=== PATIENT | female | born 1990 | race Caucasian/White ===

== ENCOUNTER 2017-01-20 16:12 | Emergency (ER) | payer SELFPAY ==
[~2017-01-20] VITALS: Ht 165.1 cm; Wt 107.5 kg
[~2017-01-20 16:12] MED LIST: NO ROUTINE MEDS; PRED20TA PO
--- OUTSIDE RECORDS SUMMARY | 2017-01-20 16:17 | XMS REPORT | Continuity of Care Document ---
Author Author [facility] Organization [facility] Address Unknown Phone Unavailable Support Name Relationship Address Phone PEACE CARTER MD Caregiver [address] [place] [address] [place] [address] Unavailable YNES PINEDA Next Of Kin [address] [place] [phone] Insurance Providers Guarantor Yunior Hairston Address [address] [place] [address] Email [email or web address] Payer Self Pay Subscriber's Name Yunior Hairston Relationship 18 Self Advance Directives Directive Response Recorded Date/Time Advanced Directives Type None 09/23/16 10:24am Chief Complaint and Reason for Visit Chief Complaint Throat Pain/Injury Reason for Visit Uvulitis Problems Active Problems Medical Problem Onset Date Status Abdominal pain Unknown Acute Arthralgia Unknown Acute Brown recluse spider bite Unknown Acute Burn of foot Unknown Acute Cellulitis and abscess of leg Unknown Acute Cervical muscle strain Unknown Acute Cervical muscle strain Unknown Acute Constipation Unknown Acute Contusion of foot Unknown Acute Costalchondritis Unknown Acute Costalchondritis Unknown Acute Diarrhea Unknown Chronic Elevated liver enzymes Unknown Acute Exacerbation of chronic back pain Unknown Acute Exacerbation of chronic back pain Unknown Acute FOOT BURN Unknown Acute Headache Unknown Acute Headache Unknown Acute Muscle spasm Unknown Acute Muscle spasm Unknown Acute Muscle strain Unknown Acute Nausea & vomiting Unknown Chronic Nausea & vomiting Unknown Acute Patient left without being seen Unknown Acute Sinusitis Unknown Acute Urticaria Unknown Acute Past Problems Medical Problem Onset Date Abdominal pain Unknown Uvulitis Unknown Viral gastroenteritis Unknown Medications Current Home Medications Medication Dose Units Route Directions Days Qty Instructions Start Date No Routine Meds 11/10/15 Prednisone 20 Mg Tablet 20 Mg Oral Twice Daily With Meals 10 Tablet Take 1 tablet, by mouth, 2 times a day with meals. 09/23/16 Past Home Medications Medication Directions Ordered Status None , 06/11/09 Discontinued Social History Social History Problem Response Recorded Date/Time Onset Date Status Chewing Tobacco Status No 02/07/2014 11:24pm Not Applicable Not Applicable Hx Substance Use Y SMOKED MARIJUANA 09/22/16 09/23/2016 10:30am Not Applicable Not Applicable Hx Alcohol Use Y "RARELY" 09/23/2016 10:30am Not Applicable Not Applicable Tobacco Usage smoke 12/22/2013 1:56pm Not Applicable Not Applicable Query Response Start Date Stop Date Smoking Status Current some day smoker Hospital Discharge Instructions No hospital discharge instructions. Plan of Care Discharge Date 09/23/16 12:32pm Disposition 01 DISCHARGED HOME, SELF-CARE Condition at Discharge Stable Instructions/Education Provided DI for Pharyngitis/Tonsillopharyngitis -- Adult Prescriptions See Medication Section Additional Instructions/Education I do want you to take the Prednisone as prescribed to help with the swelling of the uvula. Monitor your symptoms. If you should feel at all like your throat is swelling, difficulty with swallowing, or any other concerns then please return to ER. If any fever or new issues/concerns then follow up with your primary care provider. Care Plan and Goals Physician Care Plan Problem:Swollen Uvula Goal: Follow up with primary care provider Instructions: Take medications and follow care plan as discussed/written Functional Status No functional status results. Allergies, Adverse Reactions, Alerts Allergen Type Severity Reaction Status Last Updated Cat/Feline Product Derivatives Allergy Mild ITCHING Active 09/23/16 Guaifenesin Allergy Intermediate swelling Active 09/23/16 Aspirin Allergy Unknown Active 09/23/16 Ibuprofen Allergy Unknown Active 09/23/16 Bee venom Allergy Intermediate HIVES Active 09/23/16 DUST Allergy Mild ITCHING Active 03/13/13 Immunizations Query Response on File Recorded Date/Time Hx Influenza Vaccination Y fall 201305/28/15 2:44pm Hx Tetanus, Diptheria, Pertussis Y 201005/28/15 2:44pm Hx Influenza Vaccination Y fall 201305/28/15 2:44pm Hx Tetanus, Diptheria, Pertussis Y 201005/28/15 2:44pm Influenza Vaccine Hx NOT REC'D 09/23/16 10:30am Vital Signs Acute Vital Signs Vital Response Date/Time Temperature (Fahrenheit) 98.4 deg F (96.8 - 99.1) 09/23/2016 12:32pm Temperature (Calculated Celsius) 36.05385 degrees C (36.0 - 37.3) 09/23/2016 12:32pm Pulse Rate (adult) 82 bpm (60 - 100) 09/23/2016 12:32pm Respiratory Rate 16 breaths/min (10 - 20) 09/23/2016 12:32pm O2 Sat by Pulse Oximetry 94 % (90 - 100) 09/23/2016 12:32pm Blood Pressure 118/70 mm Hg 09/23/2016 12:32pm Height (Feet) 5 feet 09/23/2016 10:24am Height (Inches) 5.00 inches 09/23/2016 10:24am Weight (Kilograms) 108.500 kg 09/23/2016 10:24am Body Mass Index (BMI) 39.0 09/23/2016 10:24am Results Laboratory Results Test Name Result Units Flags Reference Collection Date/Time Result Date/ Time Comments Group A Streptococcus Screen NEGATIVE NEGATIVE 09/23/2016 10:33am 07/2017 10:46am Strep culture confirmation to follow Microbiology Results Procedure Source Organism/Result Collection Date/Time Result Date/Time Result Status Group A Streptococcus Culture Throat CULTURE INITIATED - RESULTS PENDING 10:46am 09/23/2016 10:47am Preliminary Procedures No known history of procedures. Encounters Encounter Location Arrival/Admit Date Discharge/Depart Date Attending Provider Departed Emergency Room [facility] 09/23/16 10:19am 09/23/16 12: 32pm PEACE CARTER MD Recent Diagnosis
--- OUTSIDE RECORDS SUMMARY | 2017-01-20 16:17 | XMS REPORT | Continuity of Care Document ---
Author Author [facility] Organization [facility] Address Unknown Phone Unavailable Care Team Providers Care Prison Teacher Name Role Phone ZIA GONZALEZ DO Primary Care Physician [phone] Insurance Providers Payer Name Policy Number Subscriber Name Relationship [facility] Community Plan [id number] Yunior Pineda 18 Self Problems Medical Problems Problem Onset Date Status FOOT BURN Unknown Active Burn of foot Unknown Active Cellulitis and abscess of leg Unknown Active Costalchondritis Unknown Active Costalchondritis Unknown Active Arthralgia Unknown Active Cervical muscle strain Unknown Active Cervical muscle strain Unknown Active Medications Medication Dose Route Sig Days/Qty Instructions Order Date Discontinued Date Status [None] 06/11/09 09/01/13 Discontinued Fluticasone Propionate 13 Gm IH TWICE A DAY 03/30/14 Active Lurasidone Hcl 40 Mg PO 03/30/14 Active Social History Social History Problem Response Recorded Date/Time Smoking Status Current some day smoker 02/07/2014 11:24pm Chewing Tobacco Status No 02/07/2014 11:24pm Hx Substance Use No 03/30/2014 11:20pm Hx Alcohol Use Y OCCASIONAL 03/30/2014 11:20pm Query Response Start Date Stop Date Smoking Status Current some day smoker Hospital Discharge Instructions No hospital discharge instructions. Plan of Care No plan of care. Functional Status Query Response Date Recorded Physical Hygiene Self March 30, 2014 11:20pm Disabilities None March 30, 2014 11:20pm Devices Used None March 30, 2014 11:20pm Dressing Self March 30, 2014 11:20pm Ambulation Self March 30, 2014 11:20pm Diet Self March 30, 2014 11:20pm Mental Status Forgetful Oriented March 30, 2014 11:30pm Disabilities None March 30, 2014 11:20pm Devices Used None March 30, 2014 11:20pm Physical Hygiene Self March 30, 2014 11:20pm Dressing Self March 30, 2014 11:20pm Ambulation Self March 30, 2014 11:20pm Diet Self March 30, 2014 11:20pm Allergies, Adverse Reactions, Alerts Allergen Type Severity Reaction Status Last Updated Cat/Feline Product Derivatives Allergy Mild ITCHING Active 02/07/14 Guaifenesin Allergy Intermediate swelling Active 02/07/14 Bee venom Allergy Intermediate HIVES Active 02/07/14 DUST Allergy Mild ITCHING Active 03/13/13 Immunizations Name Given Type Hx Influenza Vaccination No Historical Hx Tetanus, Diptheria, Pertussis Yes Historical Hx Influenza Vaccination No Historical Hx Tetanus, Diptheria, Pertussis Yes Historical Vital Signs Acute Vital Signs Vital Response Date/Time Temperature (Fahrenheit) 97.6 deg F (96.8 - 99.1) Temperature (Calculated Celsius) 36.51994 degrees C (36.0 - 37.3) Pulse Rate (adult) 101 bpm (60 - 100) Respiratory Rate 20 breaths/min (10 - 20) O2 Sat by Pulse Oximetry 96 % (90 - 100) Blood Pressure 132/92 mm Hg Height 5 ft 5 in Weight 245 lb Body Mass Index 40.0 kg/m^2 Results Test Source Date Result Interp. Ref. Range Comments Alanine Aminotransferase (ALT/SGPT) February 21, 2014 10:30am 73 U/L H 9-52 Albumin February 21, 2014 10:30am 4.8 G/DL N 3.5-5.0 Albumin/Globulin Ratio February 21, 2014 10:30am 1.3 RATIO N 1.1-2.2 Alkaline Phosphatase February 21, 2014 10:30am 79 U/L N 38-126 Anion Gap February 21, 2014 10:30am 18 MEQ/L H 5-15 Aspartate Amino Transf (AST/SGOT) February 21, 2014 10:30am 28 U/L N 14-36 BUN/Creatinine Ratio February 21, 2014 10:30am 29 RATIO H 6-26 Basophils # (Auto) February 21, 2014 10:30am 0.1 T/MM3 N 0-0.2 Basophils (%) (Auto) February 21, 2014 10:30am 0.9 % N 0-2 Blood Urea Nitrogen February 21, 2014 10:30am 20.0 MG/DL H 7-17 C-Reactive Protein February 21, 2014 10:30am < 5.0 MG/L 0-9 Calcium Level February 21, 2014 10:30am 9.9 MG/DL N 8.4-10.2 Calculated Osmolality February 21, 2014 10:30am 276 MOSM/KG N 261-280 Carbon Dioxide Level February 21, 2014 10:30am 20 MEQ/L L 22-30 Chloride Level February 21, 2014 10:30am 104 MEQ/L N 98-107 Creatinine February 21, 2014 10:30am 0.7 MG/DL N 0.7-1.2 Eosinophils # (Auto) February 21, 2014 10:30am 0.3 T/MM3 N 0-0.5 Eosinophils (%) (Auto) February 21, 2014 10:30am 3.1 % N 0-4 Erythrocyte Sedimentation Rate February 21, 2014 10:30am 1 MM/HR N 0-20 Globulin February 21, 2014 10:30am 3.7 G/DL H 2.4-3.6 Glucose Level February 21, 2014 10:30am 91 MG/DL N 65-110 Group A Streptococcus Screen April 24, 2008 9:21am Negative - Strep culture confirmation to follow HLA-B27 March 06, 2014 11:43am Negative - Reference Range:Not Applicable Hematocrit February 21, 2014 10:30am 46.1 % H 36-46 Hemoglobin February 21, 2014 10:30am 15.3 GM/DL N 12-16 Lymphocytes # (Auto) February 21, 2014 10:30am 3.2 T/MM3 N 1-4.8 Lymphocytes (%) (Auto) February 21, 2014 10:30am 40.8 % N 23-45 Magnesium Level February 21, 2014 10:30am 2.2 MG/DL N 1.6-2.3 Mean Corpuscular Hemoglobin February 21, 2014 10:30am 29.4 UUG N 26-34 Mean Corpuscular Hemoglobin Concent February 21, 2014 10:30am 33.2 GM/DL N 31-37 Mean Corpuscular Volume February 21, 2014 10:30am 88.5 UM3 N 80-100 Mean Platelet Volume February 21, 2014 10:30am 10.0 UM3 N 9.4-12.4 Monocytes # (Auto) February 21, 2014 10:30am 0.7 T/MM3 N 0-0.8 Monocytes (%) (Auto) February 21, 2014 10:30am 8.2 % N 0-9.0 Neutrophils # (Auto) February 21, 2014 10:30am 3.7 T/MM3 N 1.8-7.7 Neutrophils (%) (Auto) February 21, 2014 10:30am 46.7 % N 33-66 Platelet Count February 21, 2014 10:30am 335 T/MM3 N 130-400 Potassium Level February 21, 2014 10:30am 4.0 MEQ/L N 3.6-5 RDW Standard Deviation February 21, 2014 10:30am 42.2 FL N 36.9-50.2 Red Blood Count February 21, 2014 10:30am 5.21 M/MM3 H 4.00-5.20 Rheumatoid Factor March 06, 2014 11:43am < 9 IU/ML 0-11 Sodium Level February 21, 2014 10:30am 142 MEQ/L N 134-144 Stool for White Cells February 21, 2014 10:31am Negative - Thyroid Stimulating Hormone (TSH) February 21, 2014 10:30am 2.28 MIU/L N 0.47-4.68 Total Bilirubin February 21, 2014 10:30am 0.50 MG/DL N 0.20-1.30 Total Protein February 21, 2014 10:30am 8.5 G/DL H 6.3-8.2 Urine Bacteria February 21, 2014 10:27am 3+ H - Urine Bilirubin February 21, 2014 10:27am Negative - Urine Blood February 21, 2014 10:27am Trace-lysed H - Urine Collection Type February 21, 2014 10:27am Cleancatch-midstream - Urine Color February 21, 2014 10:27am Yellow - Urine Glucose (UA) February 21, 2014 10:27am Negative - Urine Ketones February 21, 2014 10:27am Negative - Urine Leukocyte Esterase February 21, 2014 10:27am 1+ H - Urine Nitrite February 21, 2014 10:27am Negative - Urine Protein February 21, 2014 10:27am Negative - Urine RBC February 21, 2014 10:27am 0-1 /HPF - Urine Specific [place] February 21, 2014 10:27am 1.025 - Urine Squamous Epithelial Cells February 21, 2014 10:27am >50 - Urine Turbidity February 21, 2014 10:27am Sl cloudy - Urine Urobilinogen February 21, 2014 10:27am 0.2 EU/DL - Urine WBC February 21, 2014 10:27am 10-20 /HPF H - Urine pH February 21, 2014 10:27am 5.5 - White Blood Count February 21, 2014 10:30am 8.0 T/MM3 N 4.5-11.0 Chemistry Specimen Hemolysis February 21, 2014 10:30am < 15 0-25 0-25: No Hemolysis.26-70: Slight Hemolysis - can falsely elevate K and Urine Protein. 71-285: Moderate Hemolysis - can falsely elevate K, Troponin I, CA 19-9, PTH, CSF GLucose, and Urine Protein, and can falsely decrease Phenytoin. 286-999: Gross Hemolysis - can falsely elevate K, Troponin I, CA 19-9, PTH, CSF Glucose, and Urine Protine, and can falsely decrease Phenytoin. Recommend specimen recollection. Cyclic Citrullinated Peptide March 06, 2014 11:43am <15.6 U - Reference Range:<20.0 (Negative) Test Performed by: [place] [address] Process Control Technician: Leodan Choudhury III, M.D. Cyc.Citrullinated Peptide performed at [facility], [address] [place] [address] [employer]gun [employer] Reprinting Unit Operator Kei Ocasio MD Lab Scanned Report March 06, 2014 6:36pm LAB TEST FORM REQUEST [id number] - Anti-Nuclear Antibody (LAB) March 06, 2014 11:43am Negative - KASIA Panel, Quantitative performed at [facility] Reference Lab, [address] [place] [address] Shotgun [employer] Reprinting Unit Operator Brissa Ocasio MD Turbidity February 21, 2014 10:30am < 20 0-20 Glomerular Filtration Rate Calc February 21, 2014 10:30am 106 - Immature Granulocyte # (Auto) February 21, 2014 10:30am 0.02 T/MM3 N 0.00- 0.03 Immature Granulocyte % (Auto) February 21, 2014 10:30am 0.3 % N 0.0-0.5 Venous Blood Lactate February 21, 2014 10:30am 1.3 MMOL/L N 0.6-2.2 Icterus Index February 21, 2014 10:30am < 2 0-7 C. difficile Toxin B Gene (PCR) February 21, 2014 10:31am Negative - If Toxin A is clinically indicated, treat accordingly. HLA-B27 Interpretation March 06, 2014 11:43am See below - HLA-B27 antigen was not detected.Method: Flow Cytometry Performing Laboratory CLIA# [id number] Test Performed by: [place] [address] Process Control Technician: Leodan Choudhury III, M.D. HLA-B27, Blood performed at [facility], [address] [place] [address] Shotgun [employer] Reprinting Unit Operator Kei Ocasio MD Stool Culture Stool February 21, 2014 10:31am Group A Streptococcus Culture Throat April 24, 2008 9:40am Urine Culture Urine, Clean Catch-Midstream February 21, 2014 10:27am Mixed Pamela Prob. Contaminants Ova and Parasites Stool February 21, 2014 10:31am Procedures No known history of procedures. Encounters Encounter Location Date/Time Departed Emergency Room [facility] 03/30/14 10:36pm Registered Clinic [facility] 03/06/14 11:39am Registered Clinic [facility] 02/21/14 10:13am Registered [facility] 02/14/14 10:02am Departed Emergency Room [facility] 02/07/14 11:05pm Recent Diagnosis
--- OUTSIDE RECORDS SUMMARY | 2017-01-20 16:17 | XMS REPORT | Continuity of Care Document ---
Author Author [facility] Organization [facility] Address Unknown Phone Unavailable Care Team Providers Care Pack Worker Supervisor Name Role Phone ZIA GONZALEZ DO Primary Care Physician [phone] Insurance Providers Payer Name Policy Number Subscriber Name Relationship [facility] Community Plan [id number] Yunior Pineda 20 Self Advance Directives Directive Response Recorded Date/Time Advanced Directives Type None 08/09/14 5:15am Problems Medical Problems Problem Onset Date Status FOOT BURN Unknown Active Burn of foot Unknown Active Cellulitis and abscess of leg Unknown Active Costalchondritis Unknown Active Costalchondritis Unknown Active Arthralgia Unknown Active Cervical muscle strain Unknown Active Cervical muscle strain Unknown Active Nausea & vomiting Unknown Active Diarrhea Unknown Active Exacerbation of chronic back pain Unknown Active Exacerbation of chronic back pain Unknown Active Urticaria Unknown Active Headache Unknown Active Medications Medication Dose Route Sig Days/Qty Instructions Order Date Discontinued Date Status [None] 06/11/09 09/01/13 Discontinued Social History Social History Problem Response Recorded Date/Time Smoking Status Current some day smoker 02/07/2014 11:24pm Chewing Tobacco Status No 02/07/2014 11:24pm Hx Substance Use No 08/09/2014 5:22am Hx Alcohol Use Y OCCASIONAL 08/09/2014 5:22am Query Response Start Date Stop Date Smoking Status Current some day smoker Hospital Discharge Instructions No hospital discharge instructions. Plan of Care No plan of care. Functional Status Query Response Date Recorded Physical Hygiene Self August 09, 2014 5:22am Disabilities Visual August 09, 2014 5:22am Devices Used Glasses August 09, 2014 5:22am Dressing Self August 09, 2014 5:22am Ambulation Self August 09, 2014 5:22am Diet Self August 09, 2014 5:22am Mental Status Alert Oriented August 09, 2014 5:49am Disabilities Visual August 09, 2014 5:22am Devices Used Glasses August 09, 2014 5:22am Physical Hygiene Self August 09, 2014 5:22am Dressing Self August 09, 2014 5:22am Ambulation Self August 09, 2014 5:22am Diet Self August 09, 2014 5:22am Allergies, Adverse Reactions, Alerts Allergen Type Severity Reaction Status Last Updated Cat/Feline Product Derivatives Allergy Mild ITCHING Active 08/09/14 Guaifenesin Allergy Intermediate swelling Active 08/09/14 Bee venom Allergy Intermediate HIVES Active 08/09/14 DUST Allergy Mild ITCHING Active 03/13/13 Immunizations Name Given Type Hx Influenza Vaccination Y 2013 Historical Hx Tetanus, Diptheria, Pertussis Y 2010 Historical Hx Influenza Vaccination Y 2013 Historical Hx Tetanus, Diptheria, Pertussis Y 2010 Historical Vital Signs Acute Vital Signs Vital Response Date/Time Temperature (Fahrenheit) 97.4 deg F (96.8 - 99.1) Temperature (Calculated Celsius) 36.62698 degrees C (36.0 - 37.3) Pulse Rate (adult) 73 bpm (60 - 100) Respiratory Rate 20 breaths/min (10 - 20) O2 Sat by Pulse Oximetry 95 % (90 - 100) Blood Pressure 132/83 mm Hg Height 5 ft 5 in Weight 255 lb Body Mass Index 42.0 kg/m^2 Results Test Source Date Result Interp. Ref. Range Comments Alanine Aminotransferase (ALT/SGPT) May 25, 2014 3:54pm 105 U/L H 9-52 Albumin May 25, 2014 3:54pm 4.5 G/DL N 3.5-5.0 Albumin/Globulin Ratio May 25, 2014 3:54pm 1.3 RATIO N 1.1-2.2 Alkaline Phosphatase May 25, 2014 3:54pm 79 U/L N 38-126 Amylase Level May 25, 2014 3:54pm 77 U/L N 30-110 Anion Gap May 25, 2014 3:54pm 17 MEQ/L H 5-15 Aspartate Amino Transf (AST/SGOT) May 25, 2014 3:54pm 51 U/L H 14- 36 BUN/Creatinine Ratio May 25, 2014 3:54pm 16 RATIO N 6-26 Basophils # (Auto) May 25, 2014 3:54pm 0.0 T/MM3 N 0-0.2 Basophils (%) (Auto) May 25, 2014 3:54pm 0.5 % N 0-2 Blood Urea Nitrogen May 25, 2014 3:54pm 14.0 MG/DL N 7-17 C-Reactive Protein February 21, 2014 10:30am < 5.0 MG/L 0-9 Calcium Level May 25, 2014 3:54pm 9.9 MG/DL N 8.4-10.2 Calculated Osmolality May 25, 2014 3:54pm 280 MOSM/KG N 261-280 Carbon Dioxide Level May 25, 2014 3:54pm 26 MEQ/L N 22-30 Chloride Level May 25, 2014 3:54pm 103 MEQ/L N 98-107 Creatinine May 25, 2014 3:54pm 0.9 MG/DL N 0.7-1.2 Eosinophils # (Auto) May 25, 2014 3:54pm 0.4 T/MM3 N 0-0.5 Eosinophils (%) (Auto) May 25, 2014 3:54pm 4.3 % H 0-4 Erythrocyte Sedimentation Rate February 21, 2014 10:30am 1 MM/HR N 0-20 Globulin May 25, 2014 3:54pm 3.4 G/DL N 2.4-3.6 Glucose Level May 25, 2014 3:54pm 71 MG/DL N 65-110 Group A Streptococcus Screen April 24, 2008 9:21am Negative - Strep culture confirmation to follow HLA-B27 March 06, 2014 11:43am Negative - Reference Range:Not Applicable Hematocrit May 25, 2014 3:54pm 46.2 % H 36-46 Hemoglobin May 25, 2014 3:54pm 15.1 GM/DL N 12-16 Lipase May 25, 2014 3:54pm 81 U/L N 23-300 Lymphocytes # (Auto) May 25, 2014 3:54pm 3.2 T/MM3 N 1-4.8 Lymphocytes (%) (Auto) May 25, 2014 3:54pm 39.1 % N 23-45 Magnesium Level February 21, 2014 10:30am 2.2 MG/DL N 1.6-2.3 Mean Corpuscular Hemoglobin May 25, 2014 3:54pm 29.1 UUG N 26-34 Mean Corpuscular Hemoglobin Concent May 25, 2014 3:54pm 32.7 GM/DL N 31-37 Mean Corpuscular Volume May 25, 2014 3:54pm 89.0 UM3 N 80-100 Mean Platelet Volume May 25, 2014 3:54pm 10.1 UM3 N 9.4-12.4 Monocytes # (Auto) May 25, 2014 3:54pm 0.7 T/MM3 N 0-0.8 Monocytes (%) (Auto) May 25, 2014 3:54pm 8.4 % N 0-9.0 Neutrophils # (Auto) May 25, 2014 3:54pm 3.8 T/MM3 N 1.8-7.7 Neutrophils (%) (Auto) May 25, 2014 3:54pm 47.5 % N 33-66 Platelet Count May 25, 2014 3:54pm 283 T/MM3 N 130-400 Potassium Level May 25, 2014 3:54pm 3.8 MEQ/L N 3.6-5 RDW Standard Deviation May 25, 2014 3:54pm 42.0 FL N 36.9-50.2 Red Blood Count May 25, 2014 3:54pm 5.19 M/MM3 N 4.00-5.20 Rheumatoid Factor March 06, 2014 11:43am < 9 IU/ML 0-11 Sodium Level May 25, 2014 3:54pm 146 MEQ/L H 134-144 Stool for White Cells February 21, 2014 10:31am Negative - Thyroid Stimulating Hormone (TSH) February 21, 2014 10:30am 2.28 MIU/L N 0.47-4.68 Total Bilirubin May 25, 2014 3:54pm 0.60 MG/DL N 0.20-1.30 Total Protein May 25, 2014 3:54pm 7.9 G/DL N 6.3-8.2 Urine Bacteria February 21, 2014 10:27am 3+ H - Urine Bilirubin May 25, 2014 4:35pm Negative - Has specimen been collected/obtained? Y Urine Blood May 25, 2014 4:35pm Negative - Has specimen been collected/obtained? Y Urine Collection Type May 25, 2014 4:35pm Cleancatch-midstream - Has specimen been collected/obtained? Y Urine Color May 25, 2014 4:35pm Yellow - Has specimen been collected/obtained? Y Urine Glucose (UA) May 25, 2014 4:35pm Negative - Has specimen been collected/obtained? Y Urine Ketones May 25, 2014 4:35pm Trace H - Has specimen been collected/obtained? Y Urine Leukocyte Esterase May 25, 2014 4:35pm Negative - Has specimen been collected/obtained? Y Urine Nitrite May 25, 2014 4:35pm Negative - Has specimen been collected/obtained? Y Urine Protein May 25, 2014 4:35pm Negative - Has specimen been collected/obtained? Y Urine RBC February 21, 2014 10:27am 0-1 /HPF - Urine Specific [place] May 25, 2014 4:35pm 1.025 - Has specimen been collected/obtained? Y Urine Squamous Epithelial Cells February 21, 2014 10:27am >50 - Urine Turbidity May 25, 2014 4:35pm Sl cloudy - Has specimen been collected/obtained? Y Urine Urobilinogen May 25, 2014 4:35pm 0.2 EU/DL - Has specimen been collected/obtained? Y Urine WBC February 21, 2014 10:27am 10-20 /HPF H - Urine pH May 25, 2014 4:35pm 6.0 - Has specimen been collected/ obtained? Y White Blood Count May 25, 2014 3:54pm 8.1 T/MM3 N 4.5-11.0 Chemistry Specimen Hemolysis May 25, 2014 3:54pm < 15 0-25 0-25 : No Hemolysis.26-70: Slight Hemolysis - can falsely [...] - Reference Range:<20.0 (Negative) Test Performed by: [facility] [place] [address] Master Lay Out Specialist: Leodan Choudhury III, M.D. Cyc.Citrullinated Peptide performed at [facility], [address] [place] [address] Mold Stamper And Repairer Kei Ocasio MD Urinalysis Comment May 25, 2014 4:35pm Microscopic not ind. - Has specimen been collected/obtained? Y Lab Scanned Report March 06, 2014 6:36pm LAB TEST FORM REQUEST [id number] - Anti-Nuclear Antibody (LAB) March 06, 2014 11:43am Negative - KASIA Panel, Quantitative performed at [facility] Reference Lab, [address] [place] [address] Mold Stamper And Repairer Brissa Ocasio MD Turbidity May 25, 2014 3:54pm < 20 0-20 Glomerular Filtration Rate Calc May 25, 2014 3:54pm 79 - Immature Granulocyte # (Auto) May 25, 2014 3:54pm 0.02 T/MM3 N 0.00-0.03 Immature Granulocyte % (Auto) May 25, 2014 3:54pm 0.2 % N 0.0-0.5 Venous Blood Lactate February 21, 2014 10:30am 1.3 MMOL/L N 0.6-2.2 Icterus Index May 25, 2014 3:54pm < 2 0-7 C. difficile Toxin B Gene (PCR) February 21, 2014 10:31am Negative - If Toxin A is clinically indicated, treat accordingly. HLA-B27 Interpretation March 06, 2014 11:43am See below - HLA-B27 antigen was not detected.Method: Flow Cytometry Performing Laboratory CLIA# [id number] Test Performed by: [place] [address] Master Lay Out Specialist: Leodan Choudhury III, M.D. HLA-B27, Blood performed at [facility], [address] [place] [address] Mold Stamper And Repairer Kei Ocasio MD Stool Culture Stool February 21, 2014 10:31am Group A Streptococcus Culture Throat April 24, 2008 9:40am Ova and Parasites Stool February 21, 2014 10:31am Urine Culture Urine, Clean Catch-Midstream February 21, 2014 10:27am Mixed Pamela Prob. Contaminants Procedures Procedure Status Date Provider(s) HYDRATE IV INFUSION ADD-ON completed 05/25/14 THER/PROPH/DIAG INJ IV PUSH completed 05/25/14 TX/PRO/DX INJ NEW DRUG ADDON completed 05/25/14 EMERGENCY DEPT VISIT completed 07/18/14 [id number]"PREDNISONE, ORAL, PER 5MG" completed 07/18/14 Encounters Encounter Location Date/Time Registered Emergency Room [facility] 08/09/14 5:12am Departed Emergency Room [facility] 07/18/14 12:18am Departed Emergency Room [facility] 05/30/14 10:47pm Departed Emergency Room [facility] 05/25/14 2:15pm Recent Diagnosis
--- OUTSIDE RECORDS SUMMARY | 2017-01-20 16:17 | XMS REPORT | Continuity of Care Document ---
Author Author [facility] Organization [facility] Address Unknown Phone Unavailable Care Team Providers Care Bell Cleaner Name Role Phone ZIA GONZALEZ DO Primary Care Physician [phone] Insurance Providers Payer Name Policy Number Subscriber Name Relationship [facility] Community Plan [id number] Yunior Pineda 20 Self Problems Medical Problems [...] back pain Unknown Active Urticaria Unknown Active Medications Medication Dose Route Sig Days/Qty Instructions Order Date Discontinued Date Status [None] 06/11/09 09/01/13 Discontinued Fluticasone Propionate 13 Gm IH TWICE A DAY 03/30/14 Active Paliperidone 2 Tab DAILY 05/25/14 Active Ondansetron 4 Mg PO Q6H/0300,0900,1500,2100 10 Qty Oral disintegrating tablet 05/25/14 Active Tramadol HCl 50 Mg PO Q6H/0300,0900,1500,2100 20 Qty 05/25/14 Active Prednisone 20 Mg PO DAILY 4 Qty 07/18/14 Active Social History Social History Problem Response Recorded Date/Time Smoking Status Current some day smoker 02/07/2014 11:24pm Chewing Tobacco Status No 02/07/2014 11:24pm Hx Substance Use No 07/18/2014 12:34am Hx Alcohol Use Y OCCASIONAL 07/18/2014 12:34am Query Response Start Date Stop Date Smoking Status Current some day smoker Hospital Discharge Instructions No hospital discharge instructions. Plan of Care No plan of care. Functional Status Query Response Date Recorded Physical Hygiene Self July 18, 2014 12:34am Disabilities None July 18, 2014 12:34am Devices Used None July 18, 2014 12:34am Dressing Self July 18, 2014 12:34am Ambulation Self July 18, 2014 12:34am Diet Self July 18, 2014 12:34am Mental Status Alert July 18, 2014 12:40am Disabilities None July 18, 2014 12:34am Devices Used None July 18, 2014 12:34am Physical Hygiene Self July 18, 2014 12:34am Dressing Self July 18, 2014 12:34am Ambulation Self July 18, 2014 12:34am Diet Self July 18, 2014 12:34am Allergies, Adverse Reactions, Alerts Allergen Type Severity Reaction Status Last Updated Cat/Feline Product Derivatives Allergy Mild ITCHING Active 02/07/14 Guaifenesin Allergy Intermediate swelling Active 05/25/14 Bee venom Allergy Intermediate HIVES Active 05/25/14 DUST Allergy Mild ITCHING Active 03/13/13 Immunizations Name Given Type Hx Influenza Vaccination No Historical Hx Tetanus, Diptheria, Pertussis Yes Historical Hx Influenza Vaccination No Historical Hx Tetanus, Diptheria, Pertussis Yes Historical Vital Signs Acute Vital Signs Vital Response Date/Time Temperature (Fahrenheit) 98.4 deg F (96.8 - 99.1) Temperature (Calculated Celsius) 36.71926 degrees C (36.0 - 37.3) Pulse Rate (adult) 111 bpm (60 - 100) Respiratory Rate 20 breaths/min (10 - 20) O2 Sat by Pulse Oximetry 95 % (90 - 100) Blood Pressure 131/82 mm Hg Height 5 ft 5 in Weight 252 lb Body Mass Index 42.0 kg/m^2 Results [...] 2014 10:27am 0-1 /HPF - Urine Specific [place] May 25, 2014 4:35pm 1.025 - Has [...] - Reference Range:<20.0 (Negative) Test Performed by: [facility] - [address] [address] Allergy Specialist: Leodan Choudhury III, M.D. Cyc.Citrullinated Peptide performed at [facility], [address] [place] [address] Chief Accountant Kei Ocasio MD Urinalysis Comment May 25, 2014 4:35pm Microscopic not ind. - Has specimen been collected/obtained? Y Lab Scanned Report March 06, 2014 6:36pm LAB TEST FORM REQUEST [id number] - Anti-Nuclear Antibody (LAB) March 06, 2014 11:43am Negative - KASIA Panel, Quantitative performed at [facility] Reference Lab, [address] [place] [id number] Chief Accountant Brissa Ocasio MD Turbidity May 25, 2014 [...] not detected.Method: Flow Cytometry Performing Laboratory CLIA# [id number] Test Performed by: [place] [address] Allergy Specialist: Leodan Choudhury III, M.D. HLA-B27, Blood performed at [facility], [address] [place] [address] Chief Accountant Kei Ocasio MD Stool Culture Stool February 21, 2014 10:31am Group A Streptococcus Culture Throat April 24, 2008 9:40am Urine Culture Urine, Clean Catch-Midstream February 21, 2014 10:27am Mixed Pamela Prob. Contaminants Ova and Parasites Stool February 21, 2014 10:31am Procedures Procedure Status Date Provider(s) HYDRATE IV INFUSION ADD-ON completed 05/25/14 THER/PROPH/DIAG INJ IV PUSH completed 05/25/14 TX/PRO/DX INJ NEW DRUG ADDON completed 05/25/14 Encounters Encounter Location Date/Time Departed Emergency Room [facility] 07/18/14 12:18am Departed Emergency Room [facility] 05/30/14 10:47pm Departed Emergency Room [facility] 05/25/14 2:15pm Recent Diagnosis
--- OUTSIDE RECORDS SUMMARY | 2017-01-20 16:18 | XMS REPORT | Continuity of Care Document ---
Author Author [facility] Organization [facility] Address Unknown Phone Unavailable Care Team Providers Care Pocket Operator Name Role Phone ZIA GONZALEZ DO Primary Care Physician [phone] Insurance Providers Payer Name Policy Number Subscriber Name Relationship [facility] Community Plan [id number] Yunior Pineda 20 Self Advance Directives Directive Response Recorded Date/Time Advanced Directives Type None 08/25/14 12:16am Problems Medical Problems Problem Onset Date Status [...] Active Urticaria Unknown Active Headache Unknown Active Headache Unknown Active Muscle spasm Unknown Active Muscle strain Unknown Active Medications Medication Dose Route Sig Days/Qty Instructions Order Date Discontinued Date Status [None] 06/11/09 09/01/13 Discontinued [no dailymeds] 08/24/14 Active Cyclobenzaprine HCl 1-2 Tab PO THREE TIMES A DAY For MUSCLE PAIN 20 Qty MAY CAUSE DROWSINESS OR DIZZINESS 08/25/14 Active Social History Social History Problem Response Recorded Date/Time Chewing Tobacco Status No 02/07/2014 11:24pm Hx Substance Use No 08/25/2014 12:16am Hx Alcohol Use Y OCCASIONAL 08/25/2014 12:16am Tobacco Usage smoke 12/22/2013 1:56pm Query Response Start Date Stop Date Smoking Status Current some day smoker Hospital Discharge Instructions No hospital discharge instructions. Plan of Care No plan of care. Functional Status Query Response Date Recorded Physical Hygiene Self August 25, 2014 12:16am Disabilities None August 25, 2014 12:16am Devices Used None August 25, 2014 12:16am Dressing Self August 25, 2014 12:16am Ambulation Self August 25, 2014 12:16am Diet Self August 25, 2014 12:16am Mental Status Alert Oriented August 25, 2014 12:16am Disabilities None August 25, 2014 12:16am Devices Used None August 25, 2014 12:16am Physical Hygiene Self August 25, 2014 12:16am Dressing Self August 25, 2014 12:16am Ambulation Self August 25, 2014 12:16am Diet Self August 25, 2014 12:16am Allergies, Adverse Reactions, Alerts Allergen Type Severity Reaction Status Last Updated Cat/Feline Product Derivatives Allergy Mild ITCHING Active 08/24/14 Guaifenesin Allergy Intermediate swelling Active 08/24/14 Bee venom Allergy Intermediate HIVES Active 08/24/14 DUST Allergy Mild ITCHING Active 03/13/13 Immunizations Name Given Type Hx Influenza Vaccination Y 2013 Historical Hx Tetanus, Diptheria, Pertussis Y 2010 Historical Hx Influenza Vaccination Y 2013 Historical Hx Tetanus, Diptheria, Pertussis Y 2010 Historical Vital Signs Acute Vital Signs Vital Response Date/Time Temperature (Fahrenheit) 98.2 deg F (96.8 - 99.1) Temperature (Calculated Celsius) 36.43621 degrees C (36.0 - 37.3) Pulse Rate (adult) 82 bpm (60 - 100) Respiratory Rate 14 breaths/min (10 - 20) O2 Sat by Pulse Oximetry 96 % (90 - 100) Blood Pressure 118/68 mm Hg Height 5 ft 5 in [...] 2014 10:27am 0-1 /HPF - Urine Specific [place] May 25, 2014 4:35pm 1.025 - Has [...] - Reference Range:<20.0 (Negative) Test Performed by: [address] [address] Pot Room Supervisor: Leodan Choudhury III, M.D. Cyc.Citrullinated Peptide performed at [facility], [address] [place] [address] Eligibility Examiner Kei Ocasio MD Urinalysis Comment May 25, 2014 4:35pm Microscopic not ind. - Has specimen been collected/obtained? Y Lab Scanned Report March 06, 2014 6:36pm LAB TEST FORM REQUEST [id number] - Anti-Nuclear Antibody (LAB) March 06, 2014 11:43am Negative - KASIA Panel, Quantitative performed at [facility] Reference Lab, [address] [place] [id number] Eligibility Examiner Brissa Ocasio MD Turbidity May 25, 2014 [...] not detected.Method: Flow Cytometry Performing Laboratory CLIA# [id number] Test Performed by: [place] [address] Pot Room Supervisor: Leodan Choudhury III, M.D. HLA-B27, Blood performed at [facility], [address] [place] [address] Eligibility Examiner Kei Ocasio MD Stool Culture Stool February 21, 2014 10:31am Group A Streptococcus Culture Throat April 24, 2008 9:40am Urine Culture Urine, Clean Catch-Midstream February 21, 2014 10:27am Mixed Pamela Prob. Contaminants Ova and Parasites Stool February 21, 2014 10:31am Procedures Procedure Status Date Provider(s) EMERGENCY DEPT VISIT completed 07/18/14 [id number]"PREDNISONE, ORAL, PER 5MG" completed 07/18/14 THER/PROPH/DIAG INJ SC/IM completed 08/09/14 THER/PROPH/DIAG INJ SC/IM completed 08/09/14 THER/PROPH/DIAG INJ SC/IM completed 08/09/14 EMERGENCY DEPT VISIT completed 08/09/14 [id number]"INJECTION, KETOROLAC TROMETHAMINE, PER 15 MG" completed 08/09/14"INJECTION, ORPHENADRINE CITRATE, UP TO 60 MG" completed 08/09/14063391"INJECTION, PROMETHAZINE HCL, UP TO 50 MG" completed 08/09/14 Encounters Encounter Location Date/Time Departed Emergency Room [facility] 08/24/14 10:25pm Departed Emergency Room [facility] 08/09/14 5:12am Departed Emergency Room [facility] 07/18/14 12:18am Departed Emergency Room [facility] 05/30/14 10:47pm Recent Diagnosis
--- OUTSIDE RECORDS SUMMARY | 2017-01-20 16:18 | XMS REPORT | Continuity of Care Document ---
Author Author [facility] Organization [facility] Address Unknown Phone Unavailable Care Team Providers Care Bilingual Inside Sales Representative Name Role Phone ZIA GONZALEZ DO Primary Care Physician [phone] Insurance Providers Payer Name Policy Number Subscriber Name Relationship [facility] Community Plan [id number] Yunior Pineda 20 Self Problems Medical Problems Problem Onset Date Status FOOT BURN Unknown Active Burn of foot Unknown Active Cellulitis and abscess of leg Unknown Active Costalchondritis Unknown Active Costalchondritis Unknown Active Arthralgia Unknown Active Cervical muscle strain Unknown Active Cervical muscle strain Unknown Active Nausea & vomiting Unknown Active Diarrhea Unknown Active Exacerbation of chronic back pain Unknown Active Medications Medication Dose Route Sig Days/Qty Instructions Order Date Discontinued Date Status [None] 06/11/09 09/01/13 Discontinued Fluticasone Propionate 13 Gm IH TWICE A DAY 03/30/14 Active Paliperidone 2 Tab DAILY 05/25/14 Active Ondansetron 4 Mg PO Q6H/0300,0900,1500,2100 10 Qty Oral disintegrating tablet 05/25/14 Active Tramadol HCl 50 Mg PO Q6H/0300,0900,1500,2100 20 Qty 05/25/14 Active Social History Social History Problem Response Recorded Date/Time Smoking Status Current some day smoker 02/07/2014 11:24pm Chewing Tobacco Status No 02/07/2014 11:24pm Hx Substance Use No 05/25/2014 3:32pm Hx Alcohol Use Y OCCASIONAL 05/25/2014 3:32pm Query Response Start Date Stop Date Smoking Status Current some day smoker Hospital Discharge Instructions No hospital discharge instructions. Plan of Care No plan of care. Functional Status Query Response Date Recorded Physical Hygiene Self May 25, 2014 3:32pm Disabilities Visual May 25, 2014 3:32pm Devices Used Glasses May 25, 2014 3:32pm Dressing Self May 25, 2014 3:32pm Ambulation Self May 25, 2014 3:32pm Diet Self May 25, 2014 3:32pm Mental Status Alert Oriented May 25, 2014 5:30pm Disabilities Visual May 25, 2014 3:32pm Devices Used Glasses May 25, 2014 3:32pm Physical Hygiene Self May 25, 2014 3:32pm Dressing Self May 25, 2014 3:32pm Ambulation Self May 25, 2014 3:32pm Diet Self May 25, 2014 3:32pm Allergies, Adverse Reactions, Alerts Allergen Type Severity [...] Vital Signs Vital Response Date/Time Temperature (Fahrenheit) 98 deg F (96.8 - 99.1) Temperature (Calculated Celsius) 36.6696 degrees C (36.0 - 37.3) Pulse Rate (adult) 70 bpm (60 - 100) Respiratory Rate 16 breaths/min (10 - 20) O2 Sat by Pulse Oximetry 97 % (90 - 100) Blood Pressure 115/74 mm Hg Height 5 ft 5 in [...] 2014 10:27am 0-1 /HPF - Urine Specific [place] May 25, 2014 4:35pm 1.025 - Has [...] - Reference Range:<20.0 (Negative) Test Performed by: [place] [id number] Business Teacher: Leodan Choudhury III, M.D. Cyc.Citrullinated Peptide performed at [facility], [address] [place] [address] Bilingual Branch Manager Kei Ocasio MD Urinalysis Comment May 25, 2014 4:35pm Microscopic not ind. - Has specimen been collected/obtained? Y Lab Scanned Report March 06, 2014 6:36pm LAB TEST FORM REQUEST [id number] - Anti-Nuclear Antibody (LAB) March 06, 2014 11:43am Negative - KASIA Panel, Quantitative performed at [facility], [address] [place] [id number] Bilingual Branch Manager Brissa Ocasio MD Turbidity May 25, 2014 [...] not detected.Method: Flow Cytometry Performing Laboratory CLIA# [id number] Test Performed by: [place] [address] Business Teacher: Leodan Choudhury III, M.D. HLA-B27, Blood performed at [facility], [address] [place] [address] Bilingual Branch Manager Kei Ocasio MD Stool Culture Stool February 21, 2014 10:31am Group A Streptococcus Culture Throat April 24, 2008 9:40am Ova and Parasites Stool February 21, 2014 10:31am Urine Culture Urine, Clean Catch-Midstream February 21, 2014 10:27am Mixed Pamela Prob. Contaminants Procedures No known history of procedures. Encounters Encounter Location Date/Time Departed Emergency Room [facility] 05/25/14 2:15pm Departed Emergency Room [facility] 03/30/14 10:36pm [facility] 03/06/14 11:39am Recent Diagnosis
--- OUTSIDE RECORDS SUMMARY | 2017-01-20 16:18 | XMS REPORT | Continuity of Care Document ---
Author Author [facility] Organization [facility] Address Unknown Phone Unavailable Care Team Providers Care Lead Retail Sales Associate Name Role Phone ZIA GONZALEZ DO Primary Care Physician [phone] Insurance Providers Payer Name Policy Number Subscriber Name Relationship [facility] Community Plan [id number] Yunior Pineda 20 Self Advance Directives Directive Response Recorded Date/Time Advanced Directives Type None 11/09/14 4:05am Problems Medical Problems Problem Onset Date Status [...] spasm Unknown Active Muscle strain Unknown Active Muscle spasm Unknown Active Brown recluse spider bite Unknown Active Medications Medication Dose Route Sig Days/Qty Instructions Order Date Discontinued Date Status [None] 06/11/09 09/01/13 Discontinued Cyclobenzaprine HCl 1-2 Tab PO THREE TIMES A DAY For MUSCLE PAIN 20 Qty MAY CAUSE DROWSINESS OR DIZZINESS 08/25/14 Active Hydrocodone/Acetaminophen 1-2 Tab PO FOUR TIMES DAILY PRN PAIN 30 Qty 11/09/14 Active Social History Social History Problem Response Recorded Date/Time Chewing Tobacco Status No 02/07/2014 11:24pm Hx Substance Use N HX OF 11/09/2014 4:36am Hx Alcohol Use Y OCCAS 11/09/2014 4:36am Tobacco Usage smoke 12/22/2013 1:56pm Query Response Start Date Stop Date Smoking Status Current some day smoker Hospital Discharge Instructions No hospital discharge instructions. Plan of Care No plan of care. Functional Status Query Response Date Recorded Physical Hygiene Self November 09, 2014 4:36am Disabilities Visual November 09, 2014 4:36am Devices Used Glasses November 09, 2014 4:36am Dressing Self November 09, 2014 4:36am Ambulation Self November 09, 2014 4:36am Diet Self November 09, 2014 4:36am Mental Status Alert Oriented November 09, 2014 4:36am Disabilities Visual November 09, 2014 4:36am Devices Used Glasses November 09, 2014 4:36am Physical Hygiene Self November 09, 2014 4:36am Dressing Self November 09, 2014 4:36am Ambulation Self November 09, 2014 4:36am Diet Self November 09, 2014 4:36am Allergies, Adverse Reactions, Alerts Allergen Type Severity Reaction Status Last Updated Cat/Feline Product Derivatives Allergy Mild ITCHING Active 11/09/14 Guaifenesin Allergy Intermediate swelling Active 11/09/14 Bee venom Allergy Intermediate HIVES Active 11/09/14 DUST Allergy Mild ITCHING Active 03/13/13 Immunizations Name Given Type Hx Influenza Vaccination Y 2013 Historical Hx Tetanus, Diptheria, Pertussis Y 2010 Historical Hx Influenza Vaccination Y 2013 Historical Hx Tetanus, Diptheria, Pertussis Y 2010 Historical Vital Signs Acute Vital Signs Vital Response Date/Time Temperature (Fahrenheit) 99.8 deg F (96.8 - 99.1) Temperature (Calculated Celsius) 37.88070 degrees C (36.0 - 37.3) Pulse Rate (adult) 112 bpm (60 - 100) Respiratory Rate 20 breaths/min (10 - 20) O2 Sat by Pulse Oximetry 94 % (90 - 100) Blood Pressure 130/89 mm Hg Height 5 ft 5 in Weight 259 lb Body Mass Index 43.0 kg/m^2 Results Test Source Date Result Interp. [...] 2014 10:27am 0-1 /HPF - Urine Specific [place] May 25, 2014 4:35pm 1.025 - Has [...] - Reference Range:<20.0 (Negative) Test Performed by: [place] [address] Tour Director: Leodan Choudhury III, M.D. Cyc.Citrullinated Peptide performed at [facility], [address] [place] [address] Manager Story Kei Ocasio MD Urinalysis Comment May 25, 2014 4:35pm Microscopic not ind. - Has specimen been collected/obtained? Y Lab Scanned Report March 06, 2014 6:36pm LAB TEST FORM REQUEST [id number] - Anti-Nuclear Antibody (LAB) March 06, 2014 11:43am Negative - KSAIA Panel, Quantitative performed at [facility], [address] [place] [id number] Manager Story Brissa Ocasio MD Turbidity May 25, 2014 [...] not detected.Method: Flow Cytometry Performing Laboratory CLIA# [id number] Test Performed by: [place] [address] Tour Director: Leodan Choudhury III, M.D. HLA-B27, Blood performed at [facility], [address] [place] [address] Manager Story Kei Ocasio MD Stool Culture Stool February 21, 2014 10:31am Group A Streptococcus Culture Throat April 24, 2008 9:40am Ova and Parasites Stool February 21, 2014 10:31am Urine Culture Urine, Clean Catch-Midstream February 21, 2014 10:27am Mixed Pamela Prob. Contaminants Procedures Procedure Status Date Provider(s) THER/PROPH/DIAG INJ SC/IM completed 08/24/14 EMERGENCY DEPT VISIT completed 08/24/14 [id number]"INJECTION, ORPHENADRINE CITRATE, UP TO 60 MG" completed 08/24/14 Encounters Encounter Location Date/Time Departed Emergency Room [facility] 11/09/14 3:53am Departed Emergency Room [facility] 08/24/14 10:25pm Recent Diagnosis
--- OUTSIDE RECORDS SUMMARY | 2017-01-20 16:18 | XMS REPORT | Continuity of Care Document ---
Author Author [facility] Organization [facility] Address Unknown Phone Unavailable Care Team Providers Care Shotgun Shell Reprinting Unit Operator Name Role Phone ZIA GONZALEZ DO Primary Care Physician [phone] Insurance Providers Payer Name Policy Number Subscriber Name Relationship [facility] Community Plan [id number] Yunior Pineda 20 Self Problems Medical Problems [...] Physical Hygiene Self May 25, 2014 3:32pm Physical Hygiene Self May 25, 2014 3:32pm Allergies, Adverse [...] F (96.8 - 99.1) Temperature (Calculated Celsius) 36.09396 degrees C (36.0 - 37.3) Pulse Rate (adult) 106 bpm (60 - 100) Respiratory Rate 16 breaths/min (10 - 20) O2 Sat by Pulse Oximetry 94 % (90 - 100) Blood Pressure 148/75 mm Hg Results Test Source Date Result Interp. Ref. [...] 2014 10:27am 0-1 /HPF - Urine Specific [place] May 25, 2014 4:35pm 1.025 - Has [...] - Reference Range:<20.0 (Negative) Test Performed by: [place] [address] Protective Services Social Worker: Leodan Choudhury III, M.D. Cyc.Citrullinated Peptide performed at [facility], [address] [place] [address] Vp Design Kei Ocasio MD Urinalysis Comment May 25, 2014 4:35pm Microscopic not ind. - Has specimen been collected/obtained? Y Lab Scanned Report March 06, 2014 6:36pm LAB TEST FORM REQUEST [id number] - Anti-Nuclear Antibody (LAB) March 06, 2014 11:43am Negative - KASIA Panel, Quantitative performed at [facility], [address] [place] [address] Vp Design Brissa Ocasio MD Turbidity May 25, 2014 [...] not detected.Method: Flow Cytometry Performing Laboratory CLIA# [id number] Test Performed by: [place] [address] Protective Services Social Worker: Leodan Choudhury III, M.D. HLA-B27, Blood performed at [facility], [address] [place] [address] Vp Design Kei Ocasio MD Stool Culture Stool February 21, 2014 10:31am Group A Streptococcus Culture Throat April 24, 2008 9:40am Urine Culture Urine, Clean Catch-Midstream February 21, 2014 10:27am Mixed Pamela Prob. Contaminants Ova and Parasites Stool February 21, 2014 10:31am Procedures No known history of procedures. Encounters Encounter Location Date/Time Departed Emergency Room [facility] 05/30/14 10:47pm Departed Emergency Room [facility] 05/25/14 2:15pm Departed Emergency Room [facility] 03/30/14 10:36pm [facility] 03/06/14 11:39am Recent Diagnosis
--- OUTSIDE RECORDS SUMMARY | 2017-01-20 16:18 | XMS REPORT | Continuity of Care Document ---
Author Author [facility] Organization [facility] Address Unknown Phone Unavailable Allergies Active Description Code Type Severity Reaction Onset Reported/Identified Relationship to Patient Clinical Status Yes guaifenesin guaifenesin Drug Allergy Severe ANAPHYLAXIS 11/10/2015 Medications Problems Procedures Results Encounters ACCT No. Visit Date/Time Discharge Status Pt. Type Provider Facility Loc./Unit Complaint [id number] 11/10/2015 14:44:00 2015 15:32:00 DIS Emergency Pedrito BARROS, Javier Thrasher [facility]
[2017-01-20 16:25] VITALS: Ht 165.1 cm; Wt 107.5 kg
--- NOTE | 2017-01-20 16:29 | ERPDOC ---
Departure Disposition Decision Date: January 20, 2017 Disposition Decision Time: 17:56 Disposition: 01 DISCHARGED HOME, SELF-CARE Impression Impression Impression: Primary Impression: Pharyngitis Additional Impression: Condition: Stable Seen By: Mid-level only Patient Instructions: Pharyngitis (ED) Problems/Meds/Labs Reviewed?: Yes Medications reviewed and manag: Yes Additional Instructions: Your lab indicate your are . Your rapid strep is negative. You may take OTC Tylenol for throat pain. You may gargle with 1tsp of salt in 1 cup of warm water 3-4 times daily. Follow treatment plan. Follow with your PCP or OB for follow up. Follow up care ordered?: Yes Mental Status: Oriented HPI - General Medical General Stated Complaint: THROAT HURTS , TEST Time Seen by Provider: 16:26 Source: patient HPI - General Medical Initial Comments 26 YO F present to ED with three day hx. of sore throat accompanying with sinus congestion and rhinorrhea. PMH of uvulitis. Painful to swallow. Also requesting test. States her LMP was 2 months ago. Has had 2 positive test at home. Report morning and evening nausea and vomiting. Patient denies fever, chills, cough, abdominal pain, dysuria. Pain Scale: Now: 9/10 Associated Symptoms: nausea/vomiting, DENIES: chest pain, cough, diaphoresis, fever/chills, headaches, loss of appetite, malaise, rash, seizure, shortness of breath, syncope, weakness Allergies: Coded Allergies: guaifenesin (Verified Allergy, Intermediate, swelling, 01/20/17) venom-honey bee (Verified Allergy, Intermediate, HIVES, 01/20/17) Cat/Feline Product Derivatives (Verified Allergy, Mild, ITCHING, 01/20/17) swollen eyes, and sneezing aspirin (Verified Allergy, Unknown, 01/20/17) ibuprofen (Verified Allergy, Unknown, 01/20/17) Uncoded Allergies: DUST (Allergy, Mild, ITCHING, 03/13/13) Past History Past Medical History ENMT: allergies, ear infections Cardiac: DENIES: angina Respiratory: asthma GI: DENIES: ulcers Female: renal insufficiency Neurological: seizures Musculoskeletal: back pain, osteoarthritis Psychological: ADHD, bipolar Surgical History General: tonsils Family History Family PMH: FOUND: cancer Vaccines Hx Influenza Vaccination: Yes (FALL 2013) Hx Tetanus, Diptheria, Pertuss: Yes (2010) Social History Substance Use Type: does not use Alcohol Intake: none Sexuality: male partner Review of Systems Constitutional Constitutional: DENIES: chills, dizziness, fever, weakness Eyes General: DENIES: erythema, exudate Lids/Accessories: DENIES: erythema, swelling ENMT Ears: DENIES: pain Sinuses: congestion, rhinorrhea Mouth/Throat: painful swallowing, sore throat, DENIES: change in swallowing, change in voice, hoarsness Cardiovascular Cardiac: DENIES: chest pain, murmur Rhythm/Rate: DENIES: palpitations Pulmonary Respiratory: DENIES: cough, dyspnea GI Upper Abdomen: nausea, see HPI, vomiting, DENIES: pain Lower Abdomen: DENIES: diarrhea, pain General: DENIES: dysuria, pain Musculoskeletal General: DENIES: joint pain, pain, tenderness Integumentary Skin: DENIES: color change, itching, rash Neurological General: DENIES: ataxia, change in strength, numbness, paralysis/paresis, weakness Psychiatric Psychiatric: DENIES: anxiety, depression, nervousness Physical Exam General General Nourishment: well nourished, well developed, no acute distress, adult General Body Habitus: well groomed Vitals and Pain First Documented Vital Signs Date Time Temp Pulse Resp B/P Pulse Ox O2 Delivery O2 Flow Rate FiO2 01/20/17 16:25 98.1 110 20 128/80 97 Room Air Weight: Kilograms: Height (feet): 5 Height (inches): 5.00 Triage Pain Scale: Eyes (brief) Eyes Brief: found: EOMI, PERRL ENMT Ear/Canal/Mastiod: NOT FOUND: blood, discharge Tympanic Membrane : Location: Bilateral Tympanic Membrane: FOUND Normal Nose: NOT FOUND: drainage Mouth/Dental/Tongue: FOUND: mucosa moist Pharynx: FOUND: posterior drainage, NOT FOUND: cobblestoning, displacement, exudates, uvular deviation Neck (brief) Neck: FOUND: trachea midline, NOT FOUND: adenopathy, tenderness, thyromegaly Respiratory (brief) Respiratory: FOUND: clear all palafox, equal bilaterally, symmetrical Cardiovascular Auscultation: FOUND: S1, S2, rate (104), regular Abdomen (brief) Abdominal Brief: FOUND: bowel normo active x4, soft, NOT FOUND: tender Musculoskeletal (brief) Musculoskeletal Brief: NOT FOUND: deformity, loss of motion Integumentary (brief) Integumentary Brief: FOUND: dry, pink, warm Neurologic (brief) Neurological Brief: FOUND: motor-no gross deficits, sensory-no gross deficits Psychiatric (brief) Psychiatric Brief: FOUND: alert, normal affect, oriented Differential Diagnoses Considering: Abscess (peritonsilar), Pharyngitis, Sinusitis, URI Considering: Dehydration, Hypokalemia, , UTI Progress Results/Orders Orders Procedure Category Date Status Time Strep A Antigen Screen LAB 01/20/17 Complete 16:38 Cbc W/Auto LAB 01/20/17 Complete Diff-Reflex Manual Cmp - Comprehensive LAB 01/20/17 Complete Metabolic LAB 01/20/17 Complete Qualitative, Urine 16:38 Ua, Dip Wreflex LAB 01/20/17 Complete Microsc & Sheet Pile Driver Operator 16:38 Group A Strep Culture JANESSA 01/20/17 In Process 17:23 Lab Results Laboratory Tests Test 01/20/17 16:55 01/20/17 16:56 01/20/17 17:21 White Blood Count 11.3T/MM3 Red Blood Count 4.71M/MM3 Hemoglobin 14.2GM/DL Hematocrit 42.5% Mean Corpuscular Volume 90.2UM3 Mean Corpuscular Hemoglobin 30.1UUG Mean Corpuscular Hemoglobin Concent 33.4GM/DL RDW Standard Deviation 41.8FL Platelet Count 283T/MM3 Mean Platelet Volume 10.4UM3 Immature Granulocyte % (Auto) 0.2% Neutrophils (%) (Auto) 72.8% Lymphocytes (%) (Auto) 20.7% Monocytes (%) (Auto) 4.5% Eosinophils (%) (Auto) 1.6% Basophils (%) (Auto) 0.2% Absolute Immature Granulocyte (auto 0.02T/MM3 Absolute Neutrophils (auto) 8.2T/MM3 Absolute Lymphocytes (auto) 2.3T/MM3 Absolute Monocytes (auto) 0.5T/MM3 Absolute Eosinophils (auto) 0.2T/MM3 Absolute Basophils (auto) 0.0T/MM3 Turbidity < 20 Sodium Level 141MEQ/L Potassium Level 3.3MEQ/L Chloride Level 105MEQ/L Carbon Dioxide Level 24MEQ/L Anion Gap 12MEQ/L Blood Urea Nitrogen 7.0MG/DL Creatinine 0.5MG/DL Glomerular Filtration Rate Calc 152 BUN/Creatinine Ratio 14RATIO Glucose Level 143MG/DL Calculated Osmolality 271MOSM/KG Calcium Level 9.3MG/DL Total Bilirubin 0.50MG/DL Icterus Index < 2 Aspartate Amino Transf (AST/SGOT) 19U/L Alanine Aminotransferase (ALT/SGPT) 33U/L Alkaline Phosphatase 54U/L Total Protein 7.1G/DL Albumin 4.0G/DL Globulin 3.1G/DL Albumin/Globulin Ratio 1.3RATIO Chemistry Specimen Hemolysis < 15 Group A Streptococcus Screen Negative Urine Collection Type Voided-not cc-midstr Urine Color Yellow Urine Turbidity Cloudy Urine pH 8.0 Urine Specific [place] 1.015 Urine Protein Negative Urine Glucose (UA) Negative Urine Ketones Trace Urine Blood Negative Urine Nitrite Negative Urine Bilirubin Negative Urine Urobilinogen 1.0EU/DL Urine Leukocyte Esterase Negative Urinalysis Comment Microscopic not ind. Urine Test Positive Progress Progress I discussed with patient that if she had 2 positive test at home she is most likely . Patient says she is concerned that her urine has been dark and she be dehydrated. CBC unremarkable (WBC of 11.3 consistent with ) CMP unremarkable except or 3.3 potassium which patient says she always has a low potassium (could be due to vomiting) Positive UA unremarkable Negative rapid strep I discussed labs with patient and that [facility] does do a cult from swab, will call patient if it grows out strep. Patient does have mild swelling of uvula but no displacement. Patient verbalized understanding of treatment plan, follow up with PCP/OB and return precautions. MATTHEW HINSON APRN January 20, 2017 16:29
--- OUTSIDE RECORDS SUMMARY | 2017-01-20 16:33 | XMS REPORT | Continuity of Care Document ---
Author Author [facility] Organization [facility] Address Unknown Phone Unavailable Care Team Providers Care Chemical Technician Name Role Phone ZIA GONZALEZ DO Primary Care Physician [phone] Insurance Providers Payer Name Policy Number Subscriber Name Relationship [facility] Community Plan [id number] Yunior Pineda 20 Self Problems Medical Problems [...] 2014 10:27am 0-1 /HPF - Urine Specific [place] May 25, 2014 4:35pm 1.025 - Has [...] - Reference Range:<20.0 (Negative) Test Performed by: [place] [id number] Mix Chemist: Leodan Choudhury III, M.D. Cyc.Citrullinated Peptide performed at [facility], [address] [place] [address] Checkroom Chief Kei Ocasio MD Urinalysis Comment May 25, 2014 4:35pm Microscopic not ind. - Has specimen been collected/obtained? Y Lab Scanned Report March 06, 2014 6:36pm LAB TEST FORM REQUEST [id number] - Anti-Nuclear Antibody (LAB) March 06, 2014 11:43am Negative - KASIA Panel, Quantitative performed at [facility], [address] [place] [address] Checkroom Chief Brissa Ocasio MD Turbidity May 25, 2014 [...] not detected.Method: Flow Cytometry Performing Laboratory CLIA# [id number] Test Performed by: [place] [address] Mix Chemist: Leodan Choudhury III, M.D. HLA-B27, Blood performed at [facility], [address] [place] [address] Checkroom Chief Kei Ocasio MD Stool Culture Stool February 21, 2014 10:31am Group A Streptococcus Culture Throat April 24, 2008 9:40am Ova and Parasites Stool February 21, 2014 10:31am Urine Culture Urine, Clean Catch-Midstream February 21, 2014 10:27am Mixed Pamela Prob. Contaminants Procedures No known history of procedures. Encounters Encounter Location Date/Time Departed Emergency Room [facility] 05/25/14 2:15pm Departed Emergency Room [facility] 03/30/14 10:36pm [facility] 03/06/14 11:39am Recent Diagnosis
--- OUTSIDE RECORDS SUMMARY | 2017-01-20 16:33 | XMS REPORT | Continuity of Care Document ---
Author Author [facility] Organization [facility] Address Unknown Phone Unavailable Allergies Active Description Code Type Severity Reaction Onset Reported/Identified Relationship to Patient Clinical Status Yes guaifenesin guaifenesin Drug Allergy Severe ANAPHYLAXIS 11/10/2015 Medications Problems Procedures Results Encounters ACCT No. Visit Date/Time Discharge Status Pt. Type Provider Facility Loc./Unit Complaint [id number] 11/10/2015 14:44:00 2015 15:32:00 DIS Emergency Pedrito BARROS, Javier Thrasher [facility]
--- OUTSIDE RECORDS SUMMARY | 2017-01-20 16:33 | XMS REPORT | Continuity of Care Document ---
Author Author [facility] Organization [facility] Address Unknown Phone Unavailable Care Team Providers Care Certified Prosthetist/Orthotist Name Role Phone ZIA GONZALEZ DO Primary Care Physician [phone] Insurance Providers Payer Name Policy Number Subscriber Name Relationship [facility] Community Plan [id number] Yunior Pineda 20 Self Problems Medical Problems [...] F (96.8 - 99.1) Temperature (Calculated Celsius) 36.89127 degrees C (36.0 - 37.3) Pulse Rate [...] 2014 10:27am 0-1 /HPF - Urine Specific [place] May 25, 2014 4:35pm 1.025 - Has [...] - Reference Range:<20.0 (Negative) Test Performed by: [facility] [address] [address] Cd Storage And Materials Make Up Helper: Leodan Choudhury III, M.D. Cyc.Citrullinated Peptide performed at [facility], [address] [place] [address] Pan Washer Hand Kei Ocasio MD Urinalysis Comment May 25, 2014 4:35pm Microscopic not ind. - Has specimen been collected/obtained? Y Lab Scanned Report March 06, 2014 6:36pm LAB TEST FORM REQUEST [id number] - Anti-Nuclear Antibody (LAB) March 06, 2014 11:43am Negative - KASIA Panel, Quantitative performed at [facility] Reference Lab, [address] [place] [address] Pan Washer Hand Brissa Ocasio MD Turbidity May 25, 2014 [...] not detected.Method: Flow Cytometry Performing Laboratory CLIA# [id number] Test Performed by: [place] [address] Cd Storage And Materials Make Up Helper: Leodan Choudhury III, M.D. HLA-B27, Blood performed at [facility], [address] [place] [address] Pan Washer Hand Kei Ocasio MD Stool Culture Stool February [...] Encounters Encounter Location Date/Time Departed Emergency Room [facility] 07/18/14 12:18am Departed Emergency Room [facility] 05/30/14 10:47pm Departed Emergency Room [facility] 05/25/14 2:15pm Recent Diagnosis
--- OUTSIDE RECORDS SUMMARY | 2017-01-20 16:33 | XMS REPORT | Continuity of Care Document ---
Author Author [facility] Organization [facility] Address Unknown Phone Unavailable Care Team Providers Care Call Or Contact Centre Manager Name Role Phone ZIA GONZALEZ DO Primary Care Physician [phone] Insurance Providers Payer Name Policy Number Subscriber Name Relationship [facility] Community Plan [id number] Yunior Pineda 20 Self Advance Directives Directive [...] F (96.8 - 99.1) Temperature (Calculated Celsius) 36.10953 degrees C (36.0 - 37.3) Pulse Rate [...] 2014 10:27am 0-1 /HPF - Urine Specific [place] May 25, 2014 4:35pm 1.025 - Has [...] - Reference Range:<20.0 (Negative) Test Performed by: [facility] [place] [address] Nozzle Cement Sprayer Helper: Leodan Choudhury III, M.D. Cyc.Citrullinated Peptide performed at [facility], [address] [place] [address] Patents Examiner Kei Ocasio MD Urinalysis Comment May 25, 2014 4:35pm Microscopic not ind. - Has specimen been collected/obtained? Y Lab Scanned Report March 06, 2014 6:36pm LAB TEST FORM REQUEST [id number] - Anti-Nuclear Antibody (LAB) March 06, 2014 11:43am Negative - KASIA Panel, Quantitative performed at [facility] Reference Lab, [address] [place] [address] Patents Examiner Brissa Ocasio MD Turbidity May 25, [...] not detected.Method: Flow Cytometry Performing Laboratory CLIA# [id number] Test Performed by: [place] [address] Nozzle Cement Sprayer Helper: Leodan Choudhury III, M.D. HLA-B27, Blood performed at [facility], [address] [place] [address] Patents Examiner Kei Ocasio MD Stool Culture Stool [...] completed 05/25/14 EMERGENCY DEPT VISIT completed 07/18/14 [id number]"PREDNISONE, ORAL, PER 5MG" completed 07/18/14 Encounters Encounter Location Date/Time Registered Emergency Room [facility] 08/09/14 5:12am Departed Emergency Room [facility] 07/18/14 12:18am Departed Emergency Room [facility] 05/30/14 10:47pm Departed Emergency Room [facility] 05/25/14 2:15pm Recent Diagnosis
--- OUTSIDE RECORDS SUMMARY | 2017-01-20 16:33 | XMS REPORT | Continuity of Care Document ---
Author Author [facility] Organization [facility] Address Unknown Phone Unavailable Care Team Providers Care Lower In Supervisor Name Role Phone ZIA GONZALEZ DO Primary Care Physician [phone] Insurance Providers Payer Name Policy Number Subscriber Name Relationship [facility] Community Plan [id number] Yunior Pineda 20 Self Problems Medical Problems [...] F (96.8 - 99.1) Temperature (Calculated Celsius) 36.59980 degrees C (36.0 - 37.3) Pulse Rate [...] 2014 10:27am 0-1 /HPF - Urine Specific [place] February 21, 2014 10:27am 1.025 - Urine [...] - Reference Range:<20.0 (Negative) Test Performed by: [place] [address] Bobbin Winder Tender: Leodan Choudhury III, M.D. Cyc.Citrullinated Peptide performed at [facility], [address] [place] [address] Assistant To The Ceo Kei Ocasio MD Lab Scanned Report March 06, 2014 6:36pm LAB TEST FORM REQUEST [id number] - Anti-Nuclear Antibody (LAB) March 06, 2014 11:43am Negative - KASIA Panel, Quantitative performed at [facility] Reference Lab, [address] [place] [address] Assistant To The Ceo Brissa Ocasio MD Turbidity February 21, 2014 [...] not detected.Method: Flow Cytometry Performing Laboratory CLIA# [id number] Test Performed by: [place] [address] Bobbin Winder Tender: Leodan Choudhury III, M.D. HLA-B27, Blood performed at [facility], [address] [place] [address] Assistant To The Ceo Kei Ocasio MD Stool Culture Stool February 21, 2014 10:31am Group A Streptococcus Culture Throat April 24, 2008 9:40am Urine Culture Urine, Clean Catch-Midstream February 21, 2014 10:27am Mixed Pamela Prob. Contaminants Ova and Parasites Stool February 21, 2014 10:31am Procedures No known history of procedures. Encounters Encounter Location Date/Time Departed Emergency Room [facility] 03/30/14 10:36pm Registered Clinic [facility] 03/06/14 11:39am Registered Clinic [facility] 02/21/14 10:13am Registered [facility] 02/14/14 10:02am Departed Emergency Room [facility] 02/07/14 11:05pm Recent Diagnosis
--- OUTSIDE RECORDS SUMMARY | 2017-01-20 16:34 | XMS REPORT | Continuity of Care Document ---
Author Author [facility] Organization [facility] Address Unknown Phone Unavailable Care Team Providers Care Philosophy Instructor Name Role Phone ZIA GONZALEZ DO Primary Care Physician [phone] Insurance Providers Payer Name Policy Number Subscriber Name Relationship [facility] Community Plan [id number] Yunior Pineda 20 Self Problems Medical Problems [...] F (96.8 - 99.1) Temperature (Calculated Celsius) 36.66819 degrees C (36.0 - 37.3) Pulse Rate [...] 2014 10:27am 0-1 /HPF - Urine Specific [place] May 25, 2014 4:35pm 1.025 - Has [...] - Reference Range:<20.0 (Negative) Test Performed by: [place] [address] Automotive Specialty Technician: Leodan Choudhury III, M.D. Cyc.Citrullinated Peptide performed at [facility], [address] [place] [address] Manager Post Kei Ocasio MD Urinalysis Comment May 25, 2014 4:35pm Microscopic not ind. - Has specimen been collected/obtained? Y Lab Scanned Report March 06, 2014 6:36pm LAB TEST FORM REQUEST [id number] - Anti-Nuclear Antibody (LAB) March 06, 2014 11:43am Negative - KASIA Panel, Quantitative performed at [facility] Reference Lab, [address] [place] [address] Manager Post Brissa Ocasio MD Turbidity May 25, 2014 [...] not detected.Method: Flow Cytometry Performing Laboratory CLIA# [id number] Test Performed by: [place] [address] Automotive Specialty Technician: Leodan Choudhury III, M.D. HLA-B27, Blood performed at [facility], [address] [place] [address] Manager Post Kei Ocasio MD Stool Culture Stool February 21, 2014 10:31am Group A Streptococcus Culture Throat April 24, 2008 9:40am Urine Culture Urine, Clean Catch-Midstream February 21, 2014 10:27am Mixed Pamela Prob. Contaminants Ova and Parasites Stool February 21, 2014 10:31am Procedures No known history of procedures. Encounters Encounter Location Date/Time Departed Emergency Room [facility] 05/30/14 10:47pm Departed Emergency Room [facility] 05/25/14 2:15pm Departed Emergency Room [facility] 03/30/14 10:36pm [facility] 03/06/14 11:39am Recent Diagnosis
--- OUTSIDE RECORDS SUMMARY | 2017-01-20 16:34 | XMS REPORT | Continuity of Care Document ---
Author Author [facility] Organization [facility] Address Unknown Phone Unavailable Care Team Providers Care Board Filler Name Role Phone ZIA GONZALEZ DO Primary Care Physician [phone] Insurance Providers Payer Name Policy Number Subscriber Name Relationship [facility] Community Plan [id number] Yunior Pineda 20 Self Advance Directives Directive [...] F (96.8 - 99.1) Temperature (Calculated Celsius) 37.94420 degrees C (36.0 - 37.3) Pulse Rate [...] 2014 10:27am 0-1 /HPF - Urine Specific [place] May 25, 2014 4:35pm 1.025 - Has [...] - Reference Range:<20.0 (Negative) Test Performed by: [place] [address] Straight Knife Cutter Machine: Leodan Choudhury III, M.D. Cyc.Citrullinated Peptide performed at [facility], [address] [place] [address] Cloth Hauler Kei Ocasio MD Urinalysis Comment May 25, 2014 4:35pm Microscopic not ind. - Has specimen been collected/obtained? Y Lab Scanned Report March 06, 2014 6:36pm LAB TEST FORM REQUEST [id number] - Anti-Nuclear Antibody (LAB) March 06, 2014 11:43am Negative - KASIA Panel, Quantitative performed at [facility] Reference Lab, [address] [place] [address] Cloth Hauler Brissa Ocasio MD Turbidity May 25, 2014 [...] not detected.Method: Flow Cytometry Performing Laboratory CLIA# [id number] Test Performed by: [place] [address] Straight Knife Cutter Machine: Leodan Choudhury III, M.D. HLA-B27, Blood performed at [facility], [address] [place] [address] Cloth Hauler Kei Ocasio MD Stool Culture Stool February 21, 2014 10:31am Group A Streptococcus Culture Throat April 24, 2008 9:40am Ova and Parasites Stool February 21, 2014 10:31am Urine Culture Urine, Clean Catch-Midstream February 21, 2014 10:27am Mixed Pamela Prob. Contaminants Procedures Procedure Status Date Provider(s) THER/PROPH/DIAG INJ SC/IM completed 08/24/14 EMERGENCY DEPT VISIT completed 08/24/14 [id number]"INJECTION, ORPHENADRINE CITRATE, UP TO 60 MG" completed 08/24/14 Encounters Encounter Location Date/Time Departed Emergency Room [facility] 11/09/14 3:53am Departed Emergency Room [facility] 08/24/14 10:25pm Recent Diagnosis
--- OUTSIDE RECORDS SUMMARY | 2017-01-20 16:34 | XMS REPORT | Continuity of Care Document ---
Author Author [facility] Organization [facility] Address Unknown Phone Unavailable Care Team Providers Care Office Equipment Technician Name Role Phone ZIA GONZALEZ DO Primary Care Physician [phone] Insurance Providers Payer Name Policy Number Subscriber Name Relationship [facility] Community Plan [id number] Yunior Pineda 20 Self Advance Directives Directive [...] F (96.8 - 99.1) Temperature (Calculated Celsius) 36.28999 degrees C (36.0 - 37.3) Pulse Rate [...] 2014 10:27am 0-1 /HPF - Urine Specific [place] May 25, 2014 4:35pm 1.025 - Has [...] - Reference Range:<20.0 (Negative) Test Performed by: [address] [address] Experience Planning Strategist: Leodan Choudhury III, M.D. Cyc.Citrullinated Peptide performed at [facility], [address] [place] [address] Lard Mixer Kei Ocasio MD Urinalysis Comment May 25, 2014 4:35pm Microscopic not ind. - Has specimen been collected/obtained? Y Lab Scanned Report March 06, 2014 6:36pm LAB TEST FORM REQUEST [id number] - Anti-Nuclear Antibody (LAB) March 06, 2014 11:43am Negative - KASIA Panel, Quantitative performed at [facility] Reference Lab, [address] [place] [address] Lard Mixer Brissa Ocasio MD Turbidity May 25, 2014 [...] not detected.Method: Flow Cytometry Performing Laboratory CLIA# [id number] Test Performed by: [place] [address] Experience Planning Strategist: Leodan Choudhury III, M.D. HLA-B27, Blood performed at [facility], [address] [place] [address] Lard Mixer Kei Ocasio MD Stool Culture Stool February 21, 2014 10:31am Group A Streptococcus Culture Throat April 24, 2008 9:40am Urine Culture Urine, Clean Catch-Midstream February 21, 2014 10:27am Mixed Pamela Prob. Contaminants Ova and Parasites Stool February 21, 2014 10:31am Procedures Procedure Status Date Provider(s) EMERGENCY DEPT VISIT completed 07/18/14 [id number]"PREDNISONE, ORAL, PER 5MG" completed 07/18/14 THER/PROPH/DIAG INJ SC/IM completed 08/09/14 THER/PROPH/DIAG INJ SC/IM completed 08/09/14 THER/PROPH/DIAG INJ SC/IM completed 08/09/14 EMERGENCY DEPT VISIT completed 08/09/14 [id number]"INJECTION, KETOROLAC TROMETHAMINE, PER 15 MG" completed 08/09/14"INJECTION, ORPHENADRINE CITRATE, UP TO 60 MG" completed 08/09/14995510"INJECTION, PROMETHAZINE HCL, UP TO 50 MG" completed 08/09/14 Encounters Encounter Location Date/Time Departed Emergency Room [facility] 08/24/14 10:25pm Departed Emergency Room [facility] 08/09/14 5:12am Departed Emergency Room [facility] 07/18/14 12:18am Departed Emergency Room [facility] 05/30/14 10:47pm Recent Diagnosis
[2017-01-20] MEDS ORDERED: PREN1TAB73 PO (16:39)
[2017-01-20 17:03] LABS: BASOPHILS % (AUTO) 0.2 % (0-2); EOSINOPHILS # (AUTO) 0.2 T/MM3 (0-0.5); EOSINOPHILS % (AUTO) 1.6 % (0-4); HCT - HEMATOCRIT 42.5 % (36-46); HGB - HEMOGLOBIN 14.2 GM/DL (12-16); IMMATURE GRANULOCYTE # (AUTO) 0.02 T/MM3 (0.00-0.03); IMMATURE GRANULOCYTE % (AUTO) 0.2 % (0.0-0.5); LYMPHOCYTES # (AUTO) 2.3 T/MM3 (1-4.8); LYMPHOCYTES % (AUTO) 20.7 % (23-45); MEAN CORPUSCULAR HGB 30.1 UUG (26-34); MEAN CORPUSCULAR HGB CONC(MCHC 33.4 GM/DL (31-37); MEAN CORPUSCULAR VOLUME 90.2 UM3 (80-100); MEAN PLATELET VOLUME 10.4 UM3 (9.4-12.4); MONOCYTES # (AUTO) 0.5 T/MM3 (0-0.8); MONOCYTES % (AUTO) 4.5 % (0-9.0); NEUTROPHILS #(AUTO)-ABSOLUTE 8.2 T/MM3 (1.8-7.7); NEUTROPHILS % (AUTO) 72.8 % (33-66); RED BLOOD COUNT 4.71 M/MM3 (4.00-5.20); WBC - WHITE BLOOD COUNT 11.3 T/MM3 (4.5-11.0)
[2017-01-20 17:16] LABS: ALBUMIN/GLOBULIN RATIO 1.3 RATIO (1.1-2.2); ALKALINE PHOSPHATASE 54 U/L (38-126); ALT (SGPT) 33 U/L (9-52); ANION GAP 12 MEQ/L (5-15); AST (SGOT) 19 U/L (14-36); BUN/CREATININE RATIO 14 RATIO (6-26); CALCIUM 9.3 MG/DL (8.4-10.2); CHLORIDE 105 MEQ/L (98-107); CO2 - CARBON DIOXIDE 24 MEQ/L (22-30); CREATININE 0.5 MG/DL (0.7-1.2); GLOMERULAR FILTRATION RATE 152; GLUCOSE 143 MG/DL (65-110); POTASSIUM 3.3 MEQ/L (3.6-5); SODIUM 141 MEQ/L (134-144); TOTAL PROTEIN 7.1 G/DL (6.3-8.2)
[2017-01-20 17:26] LABS: BLOOD, URINE NEGATIVE (NEGATIVE); COLOR,URINE YELLOW (YELLOW); LEUKOCYTE ESTERASE ,URINE NEGATIVE (NEGATIVE); NITRITE,URINE NEGATIVE (NEGATIVE)
[2017-01-20 18:05] VITALS: BP 125/79; PULSE 99; RESP 18; TEMP 98.1; O2SAT 96
== END 2017-01-20 18:05 | disposition home or self-care (01) ==
LOC: ED 16:12
DX: J02.9 Acute pharyngitis, unspecified (principal); R11.2 Nausea with vomiting, unspecified; Z32.01 Encounter for pregnancy test, result positive
CPT/HCPCS: 36415; 80053; 81003; 81025; 85025; 87081; 87430

== ENCOUNTER 2017-04-11 20:04 | Observation (INO) ==
[2017-04-11] MEDS ORDERED: SALINE FLUSH 10ml SYRINGE IVF PRN (20:39)
[2017-04-11] MEDS ORDERED: NS 1,000 ML IV ONE (20:40)
--- NOTE | 2017-04-11 21:01 | Emergency Department Report ---
General Adult HPI - General Chief complaint: Skin/Abscess/Foreign Body Stated complaint: Right breast pain Time Seen by Provider: 04/11/17 20:29 Source: patient Mode of arrival: ambulatory Limitations: no limitations - History of Present Illness HPI narrative: 26-year-old female presents to the emergency department with a chief complaint of pain in the right breast. Patient noted onset of symptoms 2 days ago. Symptoms have been persistent in nature since onset. Patient describes the pain as moderate. No radiation. Pain increases with manipulation of the affected area improves with rest and positioning. Patient is 22 weeks . She is . She denies any abdominal discomfort. She denies any vaginal bleeding or leakage of fluid. No contractions. Baby is moving normally. Patient states that she also notes that her nipple has become erythematous and inflamed and is inverted now. She denies any other complaints or associated symptoms. She was at home when the symptoms began. Symptoms have been persistent in nature since onset. - Related Data Home Medications Medication Instructions Recorded Confirmed Pnv95/Ferrous Fumarate/FA 1 tab PO DAILY #0 01/20/17 04/11/17 [ Tablet] DiphenhydrAMINE [Benadryl] 50 mg PO Q4H PRN 04/09/17 04/11/17 Allergies Allergy/AdvReac Type Severity Reaction Status Date / Time guaifenesin Allergy Intermediate swelling Verified 04/11/17 20:23 venom-honey bee Allergy Intermediate HIVES Verified 04/11/17 20:23 aspirin Allergy Unknown Verified 04/11/17 20:23 ibuprofen Allergy Unknown Verified 04/11/17 20:23 grass pollen Allergy Hives Verified 04/11/17 20:23 latex Allergy Hives Verified 04/11/17 20:23 Cat/Feline Product Allergy Mild ITCHING Uncoded 04/09/17 16:01 Derivatives DUST Allergy Mild ITCHING Uncoded 04/09/17 16:01 Review of Systems Constitutional: Denies: fever, chills Eyes: Denies: eye pain, vision change ENT: Denies: ear pain, throat pain Cardiovascular: Denies: chest pain, palpitations Respiratory: Denies: cough, dyspnea Gastrointestinal: Denies: abdominal pain, nausea, vomiting, diarrhea Genitourinary: Denies: urgency, dysuria Musculoskeletal: Denies: back pain, arthralgia Integumentary: Reports: erythema (Nipple). Denies: rash Neurological: Denies: headache, numbness Psychiatric: Denies: anxiety, depression Endocrine: Denies: fatigue, heat or cold intolerance Hematological/Lymphatic: Denies: easy bleeding, easy bruising Allergic/Immunologic: Denies: facial swelling, urticaria PFSH Patient Stated Medical History Migraine Yes Asthma Yes Pulmonary Edema Yes Gastroesophageal Reflux Yes Disease Ulcer Yes: A CHILD Clostridium Difficile Yes Bipolar Disorder Yes Schizophrenia Yes Now Yes Other Reproductive Yes: BABIES WERE BORN EARLY Surgical History: Tonsillectomy Family History: Reviewed and noncontributory. - Social History Smoking status: Never smoker Substance use type: former substance user Alcohol intake frequency: does not drink Physical Exam - Limitations Limitations: no limitations - General General appearance: alert, in no apparent distress - Normal Exams: Head:: Normocephalic without trauma Eyes:: Pupils are PERRLA w/ EOMI, No scleral icterus, irritation, or foreign bodies noted ENMT:: No facial trauma, nasal exudates, pharyngeal erythema, or exudates are noted Dental: No fractured, loose, or missing teeth noted Neck:: Full range of motion, without adenopathy, JVD, bruits or thyromegaly Chest/Respirations:: Clear all palafox, with good airflow, and symmetry bilaterally Cardiovascular:: Regular rate and rhythm (Tachycardia - 120 bpm. ), without murmur or gallop, Pulses 2+ all extremities, capillary refill, <2 seconds all extremities Abdomen:: Bowel sounds positive, soft, non-tender, non-distended, no hepatosplenomegaly, masses or bruits noted Lymphatic:: No lymphadenopathy, or lymphedema noted Musculoskeletal:: No tenderness, or deformity noted, good range of motion, all extremities Integumentary:: No rashes, hives, or bruising noted, hair and nails, without abnormality (R breast - generalized tenderness to palpation over the Casas region. Casas region is erythematous. No localized abscess felt. No extending cellulitis or lymphangitis.) Neurological:: Patient is alert, and oriented, cranial nerves, motor/sensory/ cerebellar, exams w/o gross deficits, to observation Psychiatric:: Patient exhibits, appropriate attention, emotion and affect Course Vital Signs Temperature 99.1 F 04/11/17 20:13 Pulse Rate 130 H 04/11/17 20:13 Respiratory Rate 16 04/11/17 20:13 Blood Pressure 128/62 07/30/17 20:13 Pulse Oximetry 97 04/11/17 20:13 Temperature 98.9 F 04/11/17 23:55 Pulse Rate 99 04/11/17 23:55 Respiratory Rate 16 04/11/17 23:55 Blood Pressure 118/65 04/11/17 23:55 Pulse Oximetry 97 04/11/17 23:55 Medical Decision Making - MDM Narrative Medical decision making narrative: Labs / imaging are discussed in detail with the patient and family and questions are answered. Patient is given analgesic pain medication with improvement of symptoms. Patient is given 1 L normal saline intravenously. Patient is given Rocephin 1 g intravenously at 2232 with sepsis was considered. Patient does not meet criteria for 30 mL/kg normal saline bolus as she is not hypotensive in the emergency department and her lactic acid is less than 4. Patient is discussed with Dr. Perales who is covering for Dr. Davies the patient' s MANAGER HEART FAILURE. Patient will be admitted to the service of Dr. Davies as the patient meets SIRS/sepsis criteria with mastitis. Patient and family are in agreement with the current plan of management. Patient is admitted to the hospital in improved condition. No further orders from accepting or consulting physicians who were in agreement with the current plan of management. FHT - 160 bpm. - Differential Diagnosis mastitis, cellulitis, SIRS, sepsis - Lab Data Result diagrams: 04/11/17 21:06 04/11/17 21:06 Lab Results 04/11/17 04/11/17 04/11/17 Range/Units 21:06 21:06 21:06 WBC 15.5 H D (4.5-11.0) T/MM3 RBC 3.99 L (4.00-5.20) M/MM3 Hgb 12.0 (12-16) GM/DL Hct 36.4 (36-46) % MCV 91.2 (80-100) UM3 MCH 30.1 (26-34) UUG MCHC 33.0 (31-37) GM/DL RDW Std Deviation 43.3 (36.9-50.2) FL Plt Count 274 (130-400) T/MM3 MPV 10.7 (9.4-12.4) UM3 Immature Gran % (Auto) Not performed Neut % (Auto) Not performed Lymph % (Auto) Not performed Rapides % (Auto) Not performed Eos % (Auto) Not performed Baso % (Auto) Not performed Neut # Not performed Lymph # Not performed [place] # Not performed Eos # Not performed Baso # Not performed Abs Immat Gran (auto) Not performed Neutrophils % (Manual) 77.0 H (33-66) % Lymphocytes % (Manual) 19.0 L (23-45) % Reactive Lymphs % 0.0 (0-0) % Monocytes % (Manual) 2.0 (0-9.0) % Eosinophils % (Manual) 2.0 (0-4) % Neutrophils # (Manual) 11.9 H (1.8-7.7) T/MM3 Lymphocytes # (Manual) 2.9 (1-4.8) T/MM3 Abs React Lymphs (Man) 0.0 (0-0) T/MM3 Monocytes # (Manual) 0.3 (0-0.8) T/MM3 Eosinophils # (Manual) 0.3 (0-0.5) T/MM3 RBC Morph Comment Normal Turbidity < 20 (0-20) Sodium 140 (134-144) MEQ/L Potassium 3.7 (3.6-5) MEQ/L Chloride 107 (98-107) MEQ/L Carbon Dioxide 22 (22-30) MEQ/L Anion Gap 11 (5-15) MEQ/L BUN 11.0 D (7-17) MG/DL Creatinine 0.7 D (0.7-1.2) MG/DL GFR Calculation 103 BUN/Creatinine Ratio 16 (6-26) RATIO Glucose 91 (65-110) MG/DL Calculated Osmolality 268 (261-280) MOSM/KG Calcium 9.2 (8.4-10.2) MG/DL Total Bilirubin 0.40 (0.20-1.30) MG/DL Icterus Index < 2 (0-7) AST 16 (14-36) U/L ALT 26 (9-52) U/L Alkaline Phosphatase 69 (38-126) U/L Total Protein 6.9 (6.3-8.2) G/DL Albumin 3.6 (3.5-5.0) G/DL Globulin 3.3 (2.4-3.6) G/DL Albumin/Globulin Ratio 1.1 (1.1-2.2) RATIO Plasma Lactate 1.2 (0.6-2.2) MMOL/L Procalcitonin < 0.05 NG/ML Specimen Hemolysis 17 (0-25) - Radiology Data R Breast US - the retro-Casas region is edematous with increased blood flow. No discrete collection or mass noted. Findings suspicious for mastitis. Disposition Clinical Impression: Mastitis Qualifiers: Weeks of gestation: 22 weeks Qualified Code(s): Z3A.22 - 22 weeks gestation of Disposition: 02 To [facility] Condition: Improved Time of Disposition: 22:15 (Admit. Dr. Davies. ) - Seen By: physician
[2017-04-11] MEDS ORDERED: CEFTRIAXONE (ER USE ONLY) 1 GM in NS 100 ML IV ONE (22:32)
[2017-04-11] MEDS ORDERED: ACETAMINOPHEN 500 MG TABLET PO PRN (22:36)
[2017-04-12 00:03] VITALS: BMI 39.9
[2017-04-12] MEDS: NS 1,000 ML IV SCH ×2 (01:08→11:14)
[2017-04-12 07:23] VITALS: RESP 18
--- NOTE | 2017-04-12 07:53 | Progress Note ---
DATE: 04/11/2017 The patient presented to the emergency room with complaints of breast pain and tenderness. She is [address] Wagoner did labs and sono that were consistent with mastitis. Due to tachycardia and leukocytosis he felt she met the SIRS and sepsis criteria and felt she needed to be put in the hospital for IV antibiotics. With IV fluids, her pulse was down from 130 to 110 in the ER. She was in no acute distress, so he did not feel like I needed to come in and see her this evening. He will admit her to the medical unit and start her on Rocephin. heart tones were Doppler'd and normal in the emergency room. I 'm hoping we can give her IV antibiotics overnight and send her home tomorrow on p.o. antibiotics. DES
--- NOTE | 2017-04-12 09:04 | Ultrasound Report ---
Indication: Pain, redness, 22 weeks . No mass described. PROCEDURE: US breast RT limited: Encounter: Initial Comparison: None. Technique: High-resolution sonography of the right breast was performed with grayscale or color flow imaging. Findings: In the retroareolar region, there is altered echogenicity which is predominantly hypoechoic with hypervascularity and no evidence of mass effect. There appears to be slight overlying skin thickening. Findings are suggestive of mastitis without abscess. Impression: Findings most in keeping with focal mastitis in the right retroareolar region. .
[2017-04-12 15:57] VITALS: BP 129/67; PULSE 95; TEMP 97.9; O2SAT 98
--- NOTE | 2017-04-12 18:20 | OB/GYN History & Physical ---
- History of Present Illness Date of Admission: 04/11/17 23:31 Reason for Admission: other History of Present Illness: Pt presented to ED with a 2 day history of breast pain that had been increasing in intensity. When she was evaluated in the ED there was concern secondary to tachycardia and a suspected source of infection. She meet SIRS criteria. She is currently 22 wga and reports routine care with Dr. Davies and a uncomplicated course during this . She denies currently . She feels much improved from her initial presentation reports no fever/chills, Nausea/vomiting, denies pain : 3 Para: 2 Review of Systems - Review of Systems All systems: reviewed and no additional remarkable complaints except as stated - Constitutional Constitutional: Present: as per HPI - Cardiovascular Cardiovascular: Present: as per HPI - Respiratory Respiratory: Present: as per HPI - Gastrointestinal Gastrointestinal: Present: as per HPI - Genitourinary Genitourinary: Present: as per HPI Menstruation: Present: as per HPI PFSH Patient Stated Medical History Migraine Yes Asthma Yes Pulmonary Edema Yes Gastroesophageal Reflux Yes Disease Ulcer Yes: A CHILD Clostridium Difficile Yes Bipolar Disorder Yes Schizophrenia Yes Now Yes Other Reproductive Yes: BABIES WERE BORN EARLY Surgical History: Tonsillectomy - Social History Smoking status: Never smoker Medications Home Medications Medication Instructions Recorded Confirmed Type Pnv95/Ferrous Fumarate/FA 1 tab PO DAILY #0 01/20/17 04/11/17 History [ Tablet] DiphenhydrAMINE [Benadryl] 50 mg PO Q4H PRN 04/09/17 04/11/17 History Allergies Allergy/AdvReac Type Severity Reaction Status Date / Time guaifenesin Allergy Intermediate swelling Verified 04/11/17 20:23 venom-honey bee Allergy Intermediate HIVES Verified 04/11/17 20:23 cat dander Allergy Mild Itching Verified 04/12/17 13:48 house dust mite Allergy Mild Itching Verified 04/12/17 13:53 aspirin Allergy Unknown Verified 04/11/17 20:23 ibuprofen Allergy Unknown Verified 04/11/17 20:23 grass pollen Allergy Hives Verified 04/11/17 20:23 latex Allergy Hives Verified 04/11/17 20:23 BINDER CUTTER HAND Exam Vital signs: Temperature 97.9 F 04/12/17 15:56 Pulse Rate 95 04/12/17 15:56 Respiratory Rate 18 04/12/17 15:56 Blood Pressure 129/67 04/12/17 15:56 Pulse Oximetry 98 04/12/17 15:56 Oxygen Delivery Method Room Air - Constitutional Present: no acute distress - Routine Neck Exam Present: supple - Routine Respiratory Exam Comments: Nonlabored - Routine Cardiovascular Exam Present: RRR - Routine Abdominal Exam Present: soft Comments: Obese, Gravid - Routine Extremities Exam Extremities: Present: no edema BINDER CUTTER HAND Results - Labs CBC & Chem 7: 04/11/17 21:06 04/11/17 21:06 Labs: UA Ur Collection Type Urine, clean catch 04/12/17 10:49 Urine Color Yellow (YELLOW) 04/12/17 10:49 Urine pH 6.0 (5.0-8.0) 04/12/17 10:49 Ur Specific Mentor 1.025 (1.015-1.025) 04/12/17 10:49 Urine Protein Negative (NEGATIVE) 04/12/17 10:49 Urine Glucose (UA) Negative (NEGATIVE) 04/12/17 10:49 Urine Ketones Negative (NEGATIVE) 04/12/17 10:49 Urine Occult Blood Negative (NEGATIVE) 04/12/17 10:49 Urine Nitrate Negative (NEGATIVE) 04/12/17 10:49 Urine Bilirubin Negative (NEGATIVE) 04/12/17 10:49 Urine Urobilinogen 0.2 EU/DL (NORMAL) 04/12/17 10:49 Ur Leukocyte Esterase 2+ (NEGATIVE) A 04/12/17 10:49 Assessment and Plan (1) Mastitis Problem details: Responed well to IV ABX will dismiss to home with PO abx. Current visit: Yes Status: Acute (2) Current visit: Yes Status: Acute
--- NOTE | 2017-04-12 18:31 | Discharge Instructions ---
Discharge Plan - Med Rec/Dispo Sarthak Instructions: Mastitis (GEN) Prescriptions: New Amoxicillin/Potassium Clav [Augmentin 875-125 Tablet] 1 each PO BID #14 tablet No Action Pnv95/Ferrous Fumarate/FA [ Tablet] 1 tab PO DAILY #0 DiphenhydrAMINE [Benadryl] 50 mg PO Q4H PRN PRN Reason: Allergy Symptoms Discharge Instructions/Outpatient Orders: Final Provider Discharge Instructions Location: Determined By Patient - Disposition 01 Discharged Home, Self-Care
[2017-04-12] MEDS ORDERED: DiphenhydrAMINE 25 MG CAPSULE PO PRN (18:32)
[2017-04-12] MEDS ORDERED: CEFTRIAXONE 1 G in NS 100 ML IV SCH (23:00)
[2017-04-13] MEDS ORDERED: PRENATAL VITAMIN TABLET PO SCH (09:00)
--- NOTE | 2017-04-13 14:01 | Discharge Summary ---
HISTORY OF PRESENT ILLNESS 26-year old who presented to the emergency department with chief complaint of pain in the right breast. Patient noted onset of symptoms two days prior. Symptoms had been persistent in nature and increasing. Patient described the pain as moderate with no radiation. The pain increased with manipulation of the affected area, improved with rest and positioning. She is currently 22 weeks and is a G3, P2. Denies any abdominal discomfort, any vaginal bleeding or leakage of fluid. No contractions, and felt baby move well. Patient states that she also notes her nipple has become erythematous, inflamed and is inverted. She denies any other complaints or associated symptoms. EXAM In the emergency department, her vital signs were noted to be: Temperature 99.1 with a pulse of 130, respiratory rate of 16, blood pressure 128/62 and a pulse oximetry of 97%. LAB Her white blood cell count was noted to be 15.5 with a hemoglobin of 12.4, hematocrit of 36.4 and a platelet count of 274. Her CMP was within normal limits. RADIOLOGY Right breast ultrasound shows retroareolar region is edematous with increased blood flow but no discrete collection or mass is noted. Findings suspicious for mastitis. HOSPITAL COURSE Patient was admitted to the service of Dr. Momo Davies for mastitis and was given IV antibiotics, Rocephin. Within 24 hours of initiating treatment, patient had adequate response and vital signs had normalized and she no longer met SIRS criteria and pain was improved. Decision was made to discharge to home with p.o. antibiotics. CONDITION AT DISCHARGE Good. DISCHARGE DESTINATION Home. DISCHARGE INSTRUCTIONS Patient is to take Augmentin b.i.d. x7 days and follow up at [facility] with her regularly schedule obstetrical care appointment. DIAGNOSIS AT DISCHARGE 1. Mastitis. 2. SIRS. 3. Single live intrauterine second trimester, 22 weeks gestational age. DES
== END 2017-04-12 19:07 | disposition home or self-care (01) ==
LOC: ED 20:04 → MED 20:04
PROVIDERS: ADMIT Obstetrics & Gynecology; ATTEND Obstetrics & Gynecology

== ENCOUNTER 2018-03-29 22:23 | Inpatient (IN) ==
--- OUTSIDE RECORDS SUMMARY | 2018-03-29 22:39 | External Medical Summary | Continuity of Care Document ---
:1990 Author Organization [facility] Address [address] [place], [place] [id number] Phone Support Name Relationship Address Phone Juan Ceballos [address] [place] [address] Allergies, Adverse Reactions, Alerts Substance Reaction Severity Status No Known Drug Allergies Unknown Active Medications Medication Instructions Dosage Effective Dates Status Comments (start - stop) 17-alphahydroxy 1 injection weekly - Active Progesterone IM (weeks 16-36 of 250mg/ml Injection ) VIAL ProAir HFA 90 inhale 1 puff by - Active mcg/actuation inhalation route aerosol inhaler every 4 - 6 hours as needed Vitamin take 1 tablet by Not Available - Active tablet oral route every day Problems Condition Effective Dates (start - stop) Clinical Status Suprvsn of preg w history of pre-term - labor, second tri Suprvsn of preg w insufficient antenat - care, second tri Supervision of other high risk - pregnancies, second trimester Pap Smear Screening, Cervix - 18 weeks gestation of - Suprvsn of preg w history of pre-term - labor, second tri Supervision of other high risk - pregnancies, second trimester 21 weeks gestation of - Mastitis w/out abscess - Suprvsn of preg w history of pre-term - labor, second tri Suprvsn of preg w history of pre-term - labor, second tri Suprvsn of preg w insufficient antenat - care, second tri Supervision of other high risk - pregnancies, second trimester 21 weeks gestation of - Suprvsn of preg w history of pre-term - labor, second tri Suprvsn of preg w history of pre-term - labor, second tri Encounter for suprvsn of normal - , second trimester 25 weeks gestation of - Suprvsn of preg w history of pre-term - labor, second tri Asthma Active Migraines Active Procedures Procedure Date Unknown Results Test Name Date and Time Measure Units Reference Range Abnormal Flag Comments Unknown Advance Directives Directive Yes / No Effective Date File Name Unknown Encounters Encounter Practice Location Reason(s) Diagnoses Date Provider Care Team Description For Visit [facility] Suprvsn of preg Aug-1 Samson Referring In Womens w history of 6-201 Momo. 700 Provider: Agustin ALBERTO, pre-term labor, 7 Medical Momo [address], second Center Samson Ocasio [place], [place], Luda Erickson, [facility] 700 [id number], for suprvsn of 120, Medical normal [facility] [place] tel: , [place], [facility] 120, [address] second [id number] [place], [id number] , . [place], weeks gestation tel:[phone]. of [id number] tel:[phone] Rita Block Suprvsn of preg Aug-1 Samson Referring In Womens w history of 0-201 Momo. 700 Provider: Agustin ALBERTO, pre-term labor, 7 Medical Momo [address], second tri [place], , [facility] 700 [id number], [facility], [facility] [place] tel: [place], [facility] 120, [address] [id number] [facility]. [place], tel: [phone]. [id number] tel:[phone] Rita Block Suprvsn of preg Aug-0 Perales Referring In Womens w history of 2-201 Kortney. Provider: Agustin ALBERTO, pre-term labor, 7 700 Momo [address], second tri [facility] [place], [place] 700 [id number], , [place] [address], [place] tel: [facility], [address] [facility] [id number] [facility]. [id number]. tel: tel: [phone] [facility] Nikita-3 Samosn In Womens 1-201 Momo. 700 Health [facility], 7 Medical [address], [place], , [facility] [id number], 120, [place], tel: [place], [id number] , [place]. tel: [phone] [facility] Mastitis w/out Nikita-3 Sobbing In Womens abscess 0-201 Bonilla. Health [facility], 7 700 [address], [place], [place], [place] [id number], Drive, [place] Suite tel: 120, [address] [place], [address], [place]. tel: [phone] Rita Block Suprvsn of preg Nikita-2 Samson Referring In Womens w history of 6-201 Momo. 700 Provider: Agustin ALBERTO, pre-term labor, 7 Medical Momo [address], second [facility] [place], Dr, [place] [id number], 120, Medical U[facility] [place] tel: [place], [facility] 120, [address] [id number] [facility]. [place], tel: [phone]. [id number] tel:[phone] Rita Block Suprvsn of preg Nikita-1 Samson Referring In Womens w history of 9-201 Momo. 700 Provider: Agustin ALBERTO, pre-term labor, 7 Medical Momo [address], second Center [place], [facility] , [place] [address] [id number], of other high 120, Medical [place] risk Uma[facility] [place] tel: pregnancies, [place], Ilya 120, [address] second [id number] [facility] [id number] , . [place], weeks gestation tel: [phone]. of [id number] tel:[phone] Rita Block Suprvsn of preg Nikita-1 Samson In Womens Ultrasound w history of 9-201 Momo. 700 Health DOLLY, pre-term labor, 7 Medical [address], second [place], [place], triSuprvsn of Ilya Eric[place] , preg w 120, [place] insufficient Umair, tel: [place], [address] second [id number] [facility] , [place]. of other high tel: risk [phone] pregnancies, second [id number] weeks gestation of [facility] Suprvsn of preg Ravinder-2 Samson In Womens w history of 9-201 Momo. 700 [facility], pre-term labor, 7 Medical [address], [facility] [place], [place], triSuprvsn of Ilya Eric[place] [id number], preg w 120, [place] insufficient Block, tel:+ [place], [address] second [phone] [facility] , [place]. of other high tel: risk [phone] pregnancies, second trimesterPap Smear Screening, Panjip20 weeks gestation of [facility] Renny- Krzysztof In Womens 0-201 Joyce. [facility], 3 700 [address], [place], [place], [place] [id number], Ilya Ericks[place] 120, tel: Uma[place], [address] [place], [id number] , [place]. tel: [phone] Family History Family Member Diagnosis Age At Onset Mother Breast Cancer No Family history of Family history not known. Patient is adopted. Mother Epilepsy Mother Diabetes Father Lung Disease Mother Hypertension Mother Kidney Disease Mother Ovarian Cancer Mother Lung Disease Immunizations Vaccine Date Status Comments Unknown Payers Payer name Insurance type Covered alliance party ID Authorization(s) [employer] [place] - Medicaid MC [id number] [facility] Standard [id number] Social History Type Description Quantity Date Captured Alcohol Use Details No Caffeine Use Details Unknown Tobacco Use Status Smoking Status Former smoker Vital Signs Date / Height Weight BMI Pulse Blood Temperature Respiratory Body Head BMI Time: Rate Pressure Rate Surface Circumference percentile Area Unknown Chief Complaint And Reason For Visit Unknown Chief Complaint And Reason For Visit Reason For Referral Reason For Referral Unknown Plan Of Care Date Type Action Status Goal Tobacco cessation counseling completed Appointment Haritha Mcdonald BOOKED Future Order: Radiology Order Complete OB Ultrasound > 14 Weeks Ordered ([id number]) Date Type Problem Goal Intervention Status Start Date Unknown. History Of Present Illness Encounter Date Complaint History Of Present Illness This patient has no known history of present illness Functional Status Encounter Date Functional Assessment Cognitive Assessment Unknown Medications Administered Medication Instructions Dosage Effective Dates (start - stop) Status Comments Drug Treatment Unknown Instructions Date Instruction Additional Information Unknown
--- OUTSIDE RECORDS SUMMARY | 2018-03-29 22:39 | External Medical Summary | Continuity of Care Document ---
:1990 Author Organization [facility] Address [address] [place], [place] [id number] Phone Support Name Relationship Address Phone Juan Ceballos [address] [place] [address] Allergies, Adverse Reactions, Alerts Substance Reaction Severity Status No Known Drug Allergies Unknown Active Medications Medication Instructions Dosage Effective Dates Status Comments (start - stop) ProAir HFA 90 inhale 1 puff by - Active mcg/actuation inhalation route aerosol inhaler every 4 - 6 hours as needed 17-alphahydroxy 1 injection weekly - Active Progesterone IM (weeks 16-36 of 250mg/ml Injection ) VIAL Vitamin take 1 tablet by Not Available - Active tablet oral route every day Stool Softener 50 mg take 1 capsule by 50 MG - Active capsule oral route every day at bedtime as needed Problems Condition Effective Dates (start - stop) Clinical Status Suprvsn of preg w history of pre-term - labor, third trimester Encounter for suprvsn of normal - , third trimester 33 weeks gestation of - Suprvsn of preg w history of pre-term - labor, second tri Supervision of other high risk - pregnancies, second trimester 21 weeks gestation of - Suprvsn of preg w history of pre-term - labor, third trimester Encounter for suprvsn of normal - , third trimester 31 weeks gestation of - Mastitis w/out abscess [...] preg w history of pre-term - labor, third trimester 35 weeks gestation of - Suprvsn of preg w history of pre-term - labor, third trimester Encounter for suprvsn of normal - , third trimester 29 weeks gestation of - Suprvsn of preg w history of pre-term - labor, third trimester Suprvsn of preg w history of pre-term - labor, third trimester Suprvsn of preg w history of pre-term - labor, third trimester Supervision of other high risk - pregnancies, third trimester Maternal care for oth - abnormality and damage, unsp 33 weeks gestation of - Encounter For Screening For - Streptococcus B 36 weeks gestation of - Asthma Active Migraines Active Procedures Procedure Date Injection Administration Injectable Drug - Do Not Bill OB Visit No Charge Results Test Name Date and Time Measure Units Reference Range Abnormal Flag Comments Unknown Advance Directives Directive Yes / No Effective Date File Name Unknown Encounters Encounter Practice Location Reason(s) Diagnoses Date Provider Care Team Description For Visit Members Rita Block Encounter For Nov-0 Samson Referring In Womens 2-201 Momo. 700 Provider: Agustin ALBERTO, Screening For 7 Medical Momo PO Box Streptococcus B36 Center Samson R, 1522, weeks gestation , [facility] Gianni [place], of 120, Medical [facility] [id number], [place], [facility] 120, [place] [id number] Umair, tel: , [place]. [place], tel: [phone]. [id number] tel:[phone] Associates [facility] Suprvsn of preg w Oct-2 Samson Referring In Womens history of 6-201 Momo. 700 Provider: Agustin ALBERTO, pre-term labor, 7 Medical Momo PO Box third [id number] Center Samson R, 1522, weeks gestation Dr [facility] Gianni [place], of 120, Medical [facility] [id number], [facility] 120, [place] [id number] Umair, tel: , [place]. [place], tel: [phone]. [id number] tel:[phone] Rita Block Suprvsn of preg w Oct-2 Balbir Referring In Womens history of 0-201 Rufina. Provider: Agustin ALBERTO, pre-term labor, 7 700 Momo PO Box third trimester Medical Samson R, 1522, [place] [address], [facility], [facility], [place] [id number], [facility] 120, Umair CHACKO, tel: [phone] [place], , [place]. [id number]. tel: tel: [phone] Associates [facility] Suprvsn of preg w Oct-1 Samson Referring In Womens history of 2-201 Momo. 700 Provider: Agustin ALBERTO, pre-term labor, 7 Medical Momo PO Box third Center Samson R, 1522, trimesterEncounte , [place] [address] [place] for suprvsn of 120, Medical [place], normal , [facility] [id number], third [id number] [place], Ilya 120, [place] weeks gestation [id number] Umair, tel: of , [place]. [place], tel:[phone]. [id number] tel:[phone] Rita Block Supervision of Oct- Samson In Womens Ultrasound other high risk 2-201 Momo. 700 Health PA, pregnancies, 7 Medical PO Box third Center 1522, trimesterMaternal , [facility], care for oth 120, [place], abnormality Umair, [id number], and damage, [place], [place] unsp33 weeks [id number] tel: gestation of , [place]. tel: [phone] Associates [facility]ir Suprvsn of preg w Sep-2 Samson Referring In Womens history of 8-201 Momo. 700 Provider: Health DOLLY, pre-term labor, 7 Medical [place] PO Box third Center Samson R, 1522, trimesterEncwhitley Erickson, Ilya 700 [place] for suprvsn of 120, Medical [place], normal , [address] [id number], third [id number] [place], Ilya 120, [place] weeks gestation [id number] Umair, tel: of , [place]. [place], tel:[phone]. [id number] tel:[phone] Rita Block Suprvsn of preg w Sep-2 Sobbing Referring In Womens history of 5-201 Bonilla. Provider: Agustin ALBERTO, pre-term labor, 7 700 [facility] Box third trimester Medical Samson R, 1522, Center 700 [place]restes, [facility], [facility], [facility] Center [id number], 120, Ilya 120, [place] Umair [place], [place]: [place], [address], [id number]. [place]. tel: tel: [phone] Rita Block Suprvsn of preg w Sep-1 Samson Referring In Womens history of 4-201 Momo. 700 Provider: Health DOLLY, pre-term labor, 7 Medical Momo PO Box third Center Samson R, 1522, trimesterEncwhitley Erickson, Ilya 700 [place] for suprvsn of 120, Medical [place], normal , [address] [id number], third [id number] [place], Ilya 120, [place] weeks gestation [id number] Umair, tel: of , [place]. [place], tel: [phone]. [id number] tel:[phone] Associates [facility]ir Suprvsn of preg w Sep-0 Samson Referring In Womens history of 8-201 Momo. 700 Provider: Health DOLLY, pre-term labor, 7 Medical Momo PO Box third trimester Center Beny Peters2, , Ily[place] Gianni [place], 120, Medical [facility] [id number], [place], [facility] 120, [place] [id number] Umair, tel: , [place]. [place], tel: [phone]. [id number] tel:[phone] Associates [facility] Suprvsn of preg w Sep-0 Samson Referring In Womens history of 1-201 Momo. 700 Provider: Health DOLLY, pre-term labor, 7 Medical Momo PO Box [facility] Beny Peters, , Ilya Gianni [place], 120, Medical GINNA [facility] [id number], [place], [facility] 120, [place] [id number] Umair, tel: , [place]. [place], tel: [phone]. [id number] tel:[phone] Associates [facility] Suprvsn of preg w Aug-2 Samson Referring In Womens history of 4-201 Momo. 700 Provider: Health DOLLY, pre-term labor, 7 Medical Momo PO Box [facility] Concepcion Peters, , Ilya Gianni [place], 120, Medical [facility] [id number], [place], [facility] 120, [place] [id number] Umair, tel: , . PR tel: [phone]. [id number] tel:[phone] Rita Block Suprvsn of preg w Aug-1 Samson Referring In Womens history of 6-201 Momo. 700 Provider: Health DOLLY, pre-term labor, 7 Medical Momo PO Box [facility] Concepcion Peters, triEncounter for Ilya Erickson, suprvsn of normal 120, Medical [place], , second [facility] [id number], [email or web address] weeks [place], [facility] 120, [place] gestation of [id number] Umair, tel: , [place]. [place], tel:[phone]. [id number] tel:[phone] Rita Block Suprvsn of preg w Apr- Samson Referring In Womens history of 0-201 Momo. 700 Provider: Agustin ALBERTO, pre-term labor, 7 [facility] Samson Ocasio 1522, , [address], [facility], [facility] [id number], [place], [facility] 120, [place] [id number] Umair, tel: , [place]. [place], tel:[phone]. [id number] tel:[phone] Rita Block Suprvsn of preg w Apr-0 Perales Referring In Womens history of 2-201 Kortney. Provider: Agustin ALBERTO, pre-term labor, [address] [place] [address] Samson Ocasio, 1522, [place] [address] [address] Orest[address], [place] [address], [place] [id number], [facility] 120, Umair CHACKO, tel:[phone] [place], , . [id number]. tel: tel: [phone] Rita Block Mastitis w/out Sobbing In Womens abscess 0-201 Bonilla. Agustin ALBERTO, [address] [place] [address] 1522, [place], [place], [facility] , [facility], Umair, tel: [facility] [address], . tel: [phone] Rita Block Suprvsn of preg w Mar-2 Asmson Referring In Womens history of 6-201 Momo. 700 Provider: Agustin ALBERTO, pre-term labor, 7 [facility] Samson Ocasio, 1522, , [address], 120, Medical [facility] [id number], [facility] 120, [id number] Umair, tel: , . [place], tel:[phone]. [id number] tel:[phone] Associates [facility] Suprvsn of preg w Samson Referring In Womens history of 9-201 Momo. 700 Provider: Health PA, pre-term labor, 7 Medical Momo PO Box second Center Samson R, 1522, triSupervision of Ilya Erickson, other high risk 120, Medical [place], pregnancies, Block, [place] [id number], second [place], [facility] 120, [place] weeks [id number] Block, tel: gestation of , [place]. PR, tel: [phone]. [id number] tel:[phone] Associates [facility]ir Suprvsn of preg w Samson In Womens Ultrasound history of 9-201 Momo. 700 Health PA, pre-term labor, 7 Medical PO Box second triSuprvsn Center 1522, of preg w Ilya Erickson, insufficient 120, [place], [facility], , second [place], triSupervision of [id number] tel: other high risk , [place]. pregnancies, tel: second [phone] [id number] weeks gestation of Associates Umair Suprvsn of preg w Ravinder-2 Samson In Womens history of 9-201 Momo. 700 Health PA, pre-term labor, 7 Medical PO Box second triSuprvsn Center 1522, of preg w Ilya Erickson, insufficient 120, [place], count includes the [facility] Umair [place], [id number], second [place], triSupervision of [id number] tel: other high risk , [place]. pregnancies, tel: second [phone] trimesterPap Smear Screening, [id number] weeks gestation of Associates Umair Sep- Krzysztof In Womens 0-201 Joyce. Health PA, 3 700 PO Box Medical 1522, Center Dr Orestes [facility], 120, [id number], Block, [place], tel:[phone] , [place]. tel: [phone] Family History Family Member Diagnosis Age At Onset Mother Breast Cancer No Family history of Family history not known. Patient is adopted. Mother Epilepsy Mother Diabetes Father Lung Disease Mother Hypertension Mother Kidney Disease Mother Ovarian Cancer Mother Lung Disease Immunizations Vaccine Date Status Comments Tdap completed Source: New Immunization Record Payers Payer name Insurance type Covered green party ID Authorization(s) [employer] [place] - Medicaid MC [id number] Standard [id number] [employer] [place] - Medicaid MC [id number] Social History Type Description Quantity Date Captured Alcohol Use Details No Caffeine Use Details Unknown Tobacco Use Status Smoking Status Former smoker Vital Signs Date / Height Weight BMI Pulse Blood Temperature Respiratory Body Head BMI Time: Rate Pressure Rate Surface Circumference percentile Area 234.90 39.0 lbs 9 mm[Hg] 11:46 kg/m AM eter (2) Chief Complaint And Reason For Visit Unknown Chief Complaint And Reason For Visit Reason For Referral Reason For Referral Unknown Plan Of Care Date Type Action Status Goal Tobacco cessation counseling completed Appointment Haritha Mcdonald BOOKED Future Order: Radiology Order Complete OB Ultrasound > 14 Weeks Ordered ([id number]) Future Order: Radiology Order Ultrasound OB Follow-up ([id number]) Ordered Date Type Problem Goal Intervention Status Start [...]
--- OUTSIDE RECORDS SUMMARY | 2018-03-29 22:39 | External Medical Summary | Continuity of Care Document ---
:1990 Author Organization [facility] Address [address] [place], [place] [id number] Phone Support Name Relationship Address Phone Juan Ceballos [address] [place] [address] Allergies, Adverse Reactions, Alerts Substance Reaction Severity Status No Known Drug Allergies Unknown Active Medications Medication Instructions Dosage Effective Dates Status Comments (start - stop) ProAir HFA 90 inhale 1 puff by - Active mcg/actuation inhalation route aerosol inhaler every 4 - 6 hours as needed Vitamin take 1 tablet by Not Available - Active tablet oral route every day Stool Softener 50 take 1 capsule by 50 MG - Active mg capsule oral route every day at bedtime as needed Problems Condition Effective Dates (start - stop) Clinical Status [facility] - , third trimester 37 weeks gestation of - Mastitis w/out abscess - Pap Smear Screening, Cervix - Encounter For Screening For - Streptococcus B Asthma Active Migraines Active Active Procedures Procedure Date OB Visit No Charge Results Test Name Date and Time Measure Units Reference Range Abnormal Flag Comments Unknown Advance Directives Directive Yes / No Effective Date File Name Unknown Encounters Encounter Practice Location Reason(s) Diagnoses Date Provider Care Team Description For Visit Members Rita Block Encounter for Samson In [facility] of -2017 [place] [address] [facility] [place], normal Medical [address], , Center [place], [place], third DrIlya [id number], [id number] 120, [place] weeks gestation Umair, tel:+21 [place], [id number] , [place]. tel: [phone] Rita Block Encounter For Samson Referring In Womens -2017 [place]. 700 Provider: Health DOLLY, Screening For Medical [place] [address], Streptococcus B Center Orestes Peters [place], , [place] [id number], 120, Medical [facility] tel:+21 [place], Ilya 120, [id number] [facility]. [place], tel: [phone]. [id number] tel:[phone] Rita Block Samson Referring In Womens -2017 [place]. 700 Provider: Health PA, Medical [place] [address], Center Orestes Peters [place], , [place] [id number], 120, Medical [facility] tel:+21 [place], [facility] 120, [address] [id number] [facility]. [place], tel: [phone]. [id number] tel:[phone] Rita Block Mastitis w/out Sobbing In Womens abscess -2016 Bonilla. [facility] DOLLY, 700 [address], [facility] [place], [place] [id number], Drive, Suite tel:+21 120, [address] [place], [address], . tel: [phone] Rita Block Pap Smear Samson In Womens Screening, -2016 [place]. 700 Health DOLLY, Cervix Medical [address], [place] GINNA [place], , [facility] [id number], [facility], Umiar, tel:[phone] [place], [address] [phone] , . tel: [phone] Rita Block Holdeman In Womens -2012 Joyce. Health DOLLY, 700 [address], [facility] [place], [place] [id number], , [facility] 120, tel:[phone] Umair, [address] [place], [id number] , [place]. tel:[phone] Family History Family Member Diagnosis Age At [...] [employer] Plan [place] - Medicaid MC [id number] Standard [id number] [employer] [place] - Medicaid MC [id number] Social History Type Description Quantity Date Captured Alcohol Use Details No Caffeine Use Details Unknown Tobacco Use Status Smoking Status Former smoker Vital Signs Date / Height Weight BMI Pulse Blood Temperature Respiratory Body Head BMI Time: Rate Pressure Rate Surface Circumference percentile Area 235.60 39.2 /75 lbs 0 mm[Hg] 10:25 kg/m AM eter (2) Chief Complaint And Reason For Visit Unknown Chief Complaint And Reason For Visit Reason For Referral Reason For Referral Unknown Plan Of Care Date Type Action Status Goal Tobacco cessation counseling completed Appointment Haritha Mcdonald BOOKED Date Type Problem Goal Intervention Status Start [...]
--- OUTSIDE RECORDS SUMMARY | 2018-03-29 22:39 | External Medical Summary | Continuity of Care Document ---
:1990 Author Organization [facility] Address [address] [place], [place] [id number] Phone Support Name Relationship Address Phone Juan Ceballos [address] [place] [address] Allergies, Adverse Reactions, Alerts Substance Reaction Severity [...] damage, unsp 33 weeks gestation of - Asthma Active Migraines Active Procedures Procedure Date Compounded Drug NOC Injection Administration Results Test Name Date and Time Measure Units Reference Range Abnormal Flag Comments Unknown Advance Directives Directive Yes / No Effective Date File Name Unknown Encounters Encounter Practice Location Reason(s) Diagnoses Date Provider Care Team Description For Visit Members Rita Block Suprvsn of preg w Samson Referring In Womens history of 2-201 Momo. 700 Provider: Agustni ALBERTO, pre-term labor, 7 Medical Momo [facility] Samson R, 1522, trimesterEncounte , [place] 700 Orestes r for suprvsn of 120, Medical [place], normal , [facility] [id number], third [id number] [place], Ilya 120, [place] weeks gestation [id number] Umair, tel: of , [place]. [place], tel:[phone]. [id number] tel:[phone] Rita Block Supervision of Oct- Samson In Womens Ultrasound other high risk 2-201 Momo. 700 Health PA, pregnancies, 7 Medical PO Box third Center 1522, trimesterMaternal , [facility], care for oth 120, [place], abnormality Umair, [id number], and damage, [place], [place] unsp33 weeks [id number] tel: gestation of , [place]. tel: [phone] Rita Block Suprvsn of preg w Sep-2 Samson Referring In Womens history of 8-201 Momo. 700 Provider: Health DOLLY, pre-term labor, 7 Medical Momo PO Box third [place] Samson R, 1522, trimesterEncountcurtis Erickson, Ilya 700 [place] for suprvsn of 120, Medical [place], normal , [facility] [id number], third [id number] [place], Ilya 120, [place] weeks gestation [id number] Umair, tel: of , [place]. [place], tel: [phone]. [id number] tel:[phone] Rita Block Suprvsn of preg w Sep-2 Sobbing Referring In Womens history of 5-201 Bonilla. Provider: Health DOLLY, pre-term labor, 7 700 Momo PO Box third trimester Medical Samson R, 1522, Center 700 [place], [facility], [facility], [facility] Center [id number], 120, Ilya 120, [place] Umair [place], [place]: [place], [address], [id number]. [place]. tel: tel: [phone] Rita Block Suprvsn of preg w Sep-1 Samson Referring In Womens history of 4-201 Momo. 700 Provider: Health DOLLY, pre-term labor, 7 Medical Momo PO Box third Center Samson R, 1522, trimesterEncounte , Ilya 700 [place], r for suprvsn of 120, Medical GINNA, normal , [facility] [id number], third [id number] [place], Ilya 120, [place] weeks gestation [id number] Umair, tel: of , [place]. [place], tel: [phone]. [id number] tel:[phone] Associates Umair Suprvsn of preg w Sep-0 Samson Referring In Womens history of 8-201 Momo. 700 Provider: Health DOLLY, pre-term labor, 7 Medical Momo PO Box third trimester Center Samson Ocasio, 1522, , Ilya 700 [place], 120, Medical [facility] [id number], [place], [facility] 120, [place] [id number] Umair, tel: , [place]. [place], tel: [phone]. [id number] tel:[phone] Associates Umair Suprvsn of preg w Sep-0 Samson Referring In Womens history of 1-201 Momo. 700 Provider: Health DOLLY, pre-term labor, 7 Medical Momo PO Box second tri Center Samson Ocasio, 1522, , Ilya 700 [place], 120, Medical [facility] [id number], [place], [facility] 120, [place] [id number] Umair, tel: , [place]. [place], tel: [phone]. [id number] tel:[phone] Associates Umair Suprvsn of preg w Aug-2 Samson Referring In Womens history of 4-201 Momo. 700 Provider: Health DOLLY, pre-term labor, 7 Medical Momo PO Box second tri Center Samson R, 1522, , Ilya 700 [place], 120, Medical [facility] [id number], [place], [facility] 120, [place] [id number] Umair, tel: , [place]. [place] tel: [phone]. [id number] tel:[phone] Rita Block Suprvsn of preg w Aug-1 Samson Referring In Womens history of 6-201 Momo. 700 Provider: Health PA, pre-term labor, 7 Medical Momo PO Box second Center Samson R, 1522, triEncounter for , [place] [address] [place], suprvsn of normal 120, Medical [place], , second [facility] [id number], [id number] weeks [place], [facility] 120, [place] gestation of [id number] Umair, tel: , [place]. [place], tel: [phone]. [id number] tel:[phone] Rita Block Suprvsn of preg w Apr- Samson Referring In Womens history of 0-201 Momo. 700 Provider: Health DOLLY, pre-term labor, 7 [facility] Samson R, 1522, , [address], 120, [facility], [facility] [id number], [place], [facility] 120, [place] [id number] Umair, tel: , [place]. [place], tel: [phone]. [id number] tel:[phone] Rita Block Suprvsn of preg w Apr-0 Perales Referring In Womens history of 2-201 Kortney. Provider: Agustin ALBERTO, pre-term labor, [address] [place] [address] Samson R, 1522, [place] [address] [address] Orestes, [facility], [facility], [place] [id number], [facility] 120, [place] Umair CHACKO, tel:[phone] [place], , [place]. [id number]. tel: tel: [phone] Rita Block Mastitis w/out Sobbing In Womens abscess 0-201 Bonilla. Health DOLLY, [address] [place] [address] 1522, [place], [facility], [place], [address] [id number], 120, [place], [place]: [place], [address], [place]. tel: [phone] Rita Block Suprvsn of preg w Mar-2 Samson Referring In Womens history of 6-201 Momo. 700 Provider: Agustin ALBERTO, pre-term labor, 7 [facility] Samson R, 1522, , [place] [address] [place], 120, Medical [facility] [id number], [place], Ilya 120, [place] [id number] [place], tel: , [place]. [place], tel:[phone]. [id number] tel:[phone] Associates Umair Suprvsn of preg w Samson Referring In Womens history of 9-201 Momo. 700 Provider: Health PA, pre-term labor, 7 Medical Momo PO Box second Center Samson R, 1522, triSupervision of Ilya Erickson, other high risk 120, Medical [place], pregnancies, [place], [place] [id number], second [place], Ilya 120, [place] [id number] weeks [id number] Block, tel: gestation of , [place]. [place], tel:[phone]. [id number] tel:[phone] Associates Umair Suprvsn of preg w Samson In Womens Ultrasound history of 9-201 Momo. 700 Health PA, pre-term labor, 7 Medical PO Box second triSuprvsn Center 1522, of preg w Ilya Erickson, insufficient 120, [place], davi Umair [place], [id number], second [place], triSupervision of [id number] tel: other high risk , [place]. pregnancies, tel: second [phone] [id number] weeks gestation of Associates Umair Suprchrisn of preg w Ravinder-2 Samson In Womens history of 9-201 Momo. 700 Health PA, pre-term labor, 7 Medical PO Box second triSuprvsn Center 1522, of preg w Ilya Erickson, insufficient 120, [place], Umair [place], [id number], second [place], triSupervision of [id number] tel: other high risk , [place]. pregnancies, tel: second [phone] trimesterPap Smear Screening, [id number] weeks gestation of Associates Umair Krzysztof In Womens 0-201 Jocye. Health PA, 3 700 PO Box Medical 1522, Center Dr Orestes Ilya [place], 120, [id number], [place], [place], tel:[phone] , [place]. tel:[phone] Family History Family Member Diagnosis Age At Onset Mother Breast Cancer No Family history of Family history not known. Patient is adopted. Mother Epilepsy Mother Diabetes Father Lung Disease Mother Hypertension Mother Kidney Disease Mother Ovarian Cancer Mother Lung Disease Immunizations Vaccine Date Status Comments Unknown Payers Payer name Insurance type Covered alliance party ID Authorization(s) [employer] Plan Of [place] - Medicaid MC [id number] [facility] [place] Standard [id number] Social History Type Description Quantity Date Captured [...] Complete OB Ultrasound > 14 Weeks Ordered ([id number]) Future Order: Radiology Order Ultrasound OB Follow-up ([id number]) Ordered Date Type Problem Goal Intervention Status [...]
--- OUTSIDE RECORDS SUMMARY | 2018-03-29 22:39 | External Medical Summary | Continuity of Care Document ---
:1990 Author Organization [facility] Address [address] [place], [place] [id number] Phone Support Name Relationship Address Phone Juan Ceballos [address] [place] [place] [address] Allergies, Adverse Reactions, Alerts Substance Reaction Severity [...] w insufficient antenat - care, second tri 21 weeks gestation of - Supervision of other high risk - pregnancies, second trimester Suprvsn of preg w history of pre-term - labor, second tri Suprvsn of preg w history of pre-term - labor, second tri Suprvsn of preg w history of pre-term - labor, second tri 25 weeks gestation of - Encounter for suprvsn of normal - , second trimester Suprvsn of preg w history of pre-term - labor, second tri Suprvsn of preg w history of pre-term - labor, third trimester Suprvsn of preg w history of pre-term - labor, third trimester Encounter for suprvsn of normal - , third trimester 29 weeks gestation of - Asthma Active Migraines Active Procedures Procedure Date Injection Administration Injectable Drug - Do Not Bill Results Test Name Date and Time Measure Units Reference Range Abnormal Flag Comments Unknown Advance Directives Directive Yes / No Effective Date File Name Unknown Encounters Encounter Practice Location Reason(s) Diagnoses Date Provider Care Team Description For Visit [facility] Suprvsn of preg w Sep-1 Samson Referring In Womens history of 4-201 Momo. 700 Provider: Agustin ALBERTO, pre-term labor, 7 Medical Momo [address] third [place] Samson R, 1522, trimesterEncounte , Ilya 700 [place] for suprvsn of 120, Medical GINNA, normal , [address] [id number], third [email or web address] [place], Ilya 120, [place] weeks gestation [id number] Umair, tel: of , [place]. [place], tel: [phone]. [id number] tel:[phone] [facility] Suprvsn of preg w Sep-0 Samson Referring In Womens history of 8-201 Momo. 700 Provider: Agustin ALBERTO, pre-term labor, 7 Medical Momo PO Box third trimester Center Samson R, 1522, , Ilya 700 [place], 120, Medical [facility] [id number], [place], Ilya 120, [place] [id number] Umair, tel: , [place]. [place] tel: [phone]. [id number] tel:[phone] [facility] Suprvsn of preg w Sep-0 Samson Referring In Womens history of 1-201 Momo. 700 Provider: Health PA, pre-term labor, 7 Medical Momo PO Box second tri Center Samson R, 1522, , Ilya 700 [place], 120, Medical [facility] [id number], [place], [facility] 120, [id number] Umair, tel: , [place]. [place], tel: [phone]. [id number] tel:[phone] [facility] Suprvsn of preg w Aug-2 Samson Referring In Womens history of 4-201 Momo. 700 Provider: Health PA, pre-term labor, 7 Medical Momo PO Box second tri Center Samson R, 1522, , Ilya 700 [place], 120, Medical [facility] [id number], [place], [facility] 120, [place] [id number] Umair, tel: , . [place] tel: [phone]. [id number] tel:[phone] [facility] Suprvsn of preg w Apr-1 Samson Referring In Womens history of 6-201 Momo. 700 Provider: Health DOLLY, pre-term labor, 7 Medical Momo PO Box second tri Center Samson R, 1522, weeks gestation , Ilya [place], 120, [facility], pregnancyEncounte [facility] [id number], r for suprvsn of [place], [facility] 120, [place] normal , [id number] Umair, tel: second trimester , [place]. [place] tel: [phone]. [id number] tel:[phone] [facility] Suprvsn of preg w Aug-1 Samson Referring In Womens history of 0-201 Momo. 700 Provider: Health DOLLY, pre-term labor, 7 Medical Momo PO Box second tri Center Samson R, 1522, , Ilay 700 [place], 120, Medical [facility] [id number], [place], [facility] 120, [place] [id number] Umair, tel: , [place]. [place], tel:[phone]. [id number] tel:[phone] Rita Block Suprvsn of preg w Apr-0 Perales Referring In Womens history of 2-201 Kortney. Provider: Health DOLLY, pre-term labor, 7 700 [facility] Box second tri [facility] Samson R, 1522, Center [address], [facility], 120, [place] [id number], [place], [facility] 120, [place], [place], tel:[phone] [place], , [place]. [id number]. tel: tel: [phone] [facility] Mastitis w/out Mar- Sobbing In Womens abscess 0-201 Bonilla. Health PA, [address] [place] [address] 1522, [place], [facility], [place], [id number], 120, [place], [place]: [place], [address], [place]. tel: [phone] Rita Block Suprvsn of preg w Mar-2 Samson Referring In Womens history of 6-201 Momo. 700 Provider: Health DOLLY, pre-term labor, 7 Medical [facility] Box second tri [place] Samson R, 1522, , [place] [address] [place], [facility], [facility], [place], [place] [id number], [place], [facility] 120, [place] [id number] Umair, tel: , [place]. [place], tel: [phone]. [id number] tel:[phone] Rita Block Suprvsn of preg w Mar-1 Samson Referring In Womens history of 9-201 Momo. 700 Provider: Health DOLLY, pre-term labor, 7 Medical [facility] Box [facility] Samson R, 1522, triSupervision of [address] [place] [address] [place], other high risk 120, Medical [place], pregnancies, [place], [place] [id number], [facility], [facility] 120, [email or web address] weeks [id number] Umair, tel: gestation of , [place]. [place], tel: [phone]. [id number] tel:[phone] [facility] Suprvsn of preg w Samson In Womens Ultrasound history of 9-201 Momo. 700 Health PA, pre-term labor, 7 Medical PO Box second triSuprvsn Center 1522, of preg w Ilya Erickson, insufficient 120, [place], antenat Umair [place], [id number], second tri21 [place], [place] weeks gestation [id number] tel: of , [place]. pregnancySupervis tel: ion of other high [phone] risk pregnancies, second trimester [facility] Suprvsn of preg w Samson In Womens history of 9-201 Momo. 700 Health PA, pre-term labor, 7 Medical PO Box second triSuprvsn Center 1522, of preg w Ilya Erickson, insufficient 120, [place], antenat Umair [place], [id number], second [place], triSupervision of [id number] tel: other high risk , [place]. pregnancies, tel: second [phone] trimesterPap Smear Screening, [id number] weeks gestation of [facility] Krzysztof In Womens 0-[address] [facility], 3 700 PO Box Medical [address], [address] [place], [facility] [place], 120, [id number], [place], [place], tel:[phone] , [place]. tel: [phone] Family History Family Member Diagnosis Age At Onset Mother Breast Cancer No Family history of Family history not known. Patient is adopted. Mother Epilepsy Mother Diabetes Father Lung Disease Mother Hypertension Mother Kidney Disease Mother Ovarian Cancer Mother Lung Disease Immunizations Vaccine Date Status Comments Unknown Payers Payer name Insurance type Covered alliance party ID Authorization(s) [employer] Plan Of [place] - Medicaid MC [id number] [facility] Standard [id number] Social History Type Description Quantity Date Captured [...] Complete OB Ultrasound > 14 Weeks Ordered ([id number]) Date Type Problem Goal Intervention Status Start [...]
--- OUTSIDE RECORDS SUMMARY | 2018-03-29 22:39 | External Medical Summary | Continuity of Care Document ---
:1990 Author Organization [facility] Address [address] [place], [place] [id number] Phone Support Name Relationship Address Phone Juan Ceballos [address] [place] [address] Allergies, Adverse Reactions, Alerts Substance Reaction Severity [...] - Active tablet oral route every day 17-alphahydroxy 1 injection weekly - No Longer Progesterone IM (weeks 16-36 of Active 250mg/ml Injection ) VIAL 17-alphahydroxy 1 injection weekly - No Longer Progesterone IM (weeks 16-36 of Active 250mg/ml Injection ) VIAL Problems Condition Effective Dates (start - stop) Clinical Status Suprvsn of preg w history of pre-term - labor, second tri Suprvsn of preg w insufficient antenat - care, second tri Supervision of other high risk - pregnancies, second trimester Pap Smear Screening, Cervix - 18 weeks gestation of - Suprvsn of preg w history of pre-term - labor, second tri 21 weeks gestation of - Supervision of other high risk - pregnancies, second trimester Suprvsn of preg w history of pre-term - labor, second tri Suprvsn of preg w insufficient antenat - care, second tri Supervision of other high risk - pregnancies, second trimester 21 weeks gestation of - Asthma Active Migraines Active Procedures Procedure Date Pap Smear handling/transport Initial OB Visit No Charge - SUPERVISOR QUALITY CONTROL Results Test Name Date and Time Measure Units Reference Range Abnormal Flag Comments Panel Description: PENTA SCREEN INTERPRETATION: SEE NOTE Screen negative for open NTD, 15:36:00 DS and Trisomy 18. Risk for ONTD <1:5000 15:36:00 Age Risk Down 1:1056 Syndrome 15:36:00 DEWAYNE Down Syndrome <1:5000 <1: Risk 15:36:00 270 DEWAYNE Trisomy 18 Risk <1:5000 <1: 15:36:00 100 Calc'd Gestational 18.4 Age 15:36:00 AFP, Serum 27.8 ng/mL 15:36:00 AFP MoM 0.80 15:36:00 Reference Range: <2.50 IDD <1.90 TWINS <4.00 TWINS IDD <3.50 TRIPLETS <4.50 hCG, Serum 16.6 IU/mL 15:36:00 hCG MoM 0.91 15:36:00 Estriol, Free 1.23 ng/mL 15:36:00 Estriol MoM 0.98 15:36:00 Inhibin A, Dimeric 79 pg/mL 15:36:00 Inhibin A MoM 0.57 15:36:00 h-hCG, Serum 17.0 mcg/L 15:36:00 h-hCG MoM 1.22 Performance of maternal serum 15:36:00 AFP, HCG, estriol, dimericinhibin A, and h-hCG provides a useful screening test fordetection of open neural tube defects and some chromosomalabnormalities. It should be noted that normal results cannever guarantee the of a normal baby and that 2 to 3percent of newborns have some type of physical or mentaldefect, many of which are undetectable through any knownprenatal diagnostic technique. This is a screening test, not a diagnostic test. This risk assessment is based on demographic data providedby the ordering physician. Please notify the laboratorypromptly if any data are incorrect. If you have questions concerning this report:For Clinical Consultation call [phone])For Technical/Recalculations call , ext. [phone];FAX [phone] For additional information, please refer [email or web address](This link is being provided for informational/educationalpurp oses only.) This test was developed and its analytical performancecharacteristics have been determined by [facility] Robbie Tejeda. It has not beencleared or approved by FDA. This assay has been validatedpursuant to the CLIA regulations and is used for clinicalpurposes. Date of 1990 15:36:00 Collection Date 03/11/2017 15:36:00 Maternal Weight 230 lbs 15:36:00 Est'd Date of 08/09/2017 Delivery 15:36:00 JUAN Determined by ULTRASOUND 15:36:00 Mother's Ethnic Origin 15:36:00 Number of Fetuses 1 15:36:00 Insulin Depend NO Diabetic 15:36:00 Repeat Specimen NO 15:36:00 Hx Of Neural Tube NO Defects 15:36:00 Prev Down NO Synd 15:36:00 Donor Egg NO 15:36:00 Donor Age: Egg NOT GIVEN REPORT COMMENT:FASTING:NOTest Retrieval 15:36:00 performed at [facility]/JENNY [id number] [place] [id number]: TALI NOGUEIRA MD PHD Advance Directives Directive Yes / No Effective Date File Name Unknown Encounters Encounter Practice Location Reason(s) Diagnoses Date Provider Care Team Description For Visit Members [facility] [place] Suprvsn of preg w Samson Referring In Womens history of 9-201 Momo. 700 Provider: Health PA, pre-term labor, 7 Medical Momo PO Box second tri21 Center Samson R, 1522, weeks gestation Ilya Erickson, of 120, Medical [place], pregnancySupervis [address] [id number], ion of other high [place], Ilya 120, [place] risk pregnancies, [id number] Umair, tel: second trimester , [place]. [place], tel: [phone]. [id number] tel:[phone] [facility] Suprvsn of preg w Mar- Samson In Womens Ultrasound history of 9-201 Momo. 700 Health PA, pre-term labor, 7 Medical PO Box second triSuprvsn Center 1522, of preg w Ilya Erickson, insufficient 120, [place], [facility], , second [place], triSupervision of [id number] tel: other high risk , [place]. pregnancies, tel: second [phone] [id number] weeks gestation of Associates [facility] Suprvsn of preg w Ravinder-2 Samson In Womens history of 9-201 Momo. 700 Health PA, pre-term labor, 7 Medical PO Box second triSuprvsn Center 1522, of preg w Ilya Erickson, insufficient 120, [place], [facility], [id number], second [place], triSupervision of [id number] tel: other high risk , [place]. pregnancies, tel: second [phone] trimesterPap Smear Screening, [id number] weeks gestation of Associates [facility] Sep- Krzysztof In Womens 0-201 Joyce. Health PA, 3 700 PO Box Medical [address], [address] Orestes [facility], 120, [id number], [place], [place], tel:[phone] , [place]. tel: [phone] Family History Family Member Diagnosis Age At Onset Mother Breast Cancer No Family history of Family history not known. Patient is adopted. Mother Epilepsy Mother Diabetes Father Lung Disease Mother Hypertension Mother Kidney Disease Mother Ovarian Cancer Mother Lung Disease Immunizations Vaccine Date Status Comments Unknown Payers Payer name Insurance type Covered republican ID Authorization(s) [employer] Plan [place] - Medicaid MC [id number] [facility] [id number] Social History Type Description Quantity Date Captured Alcohol Use Details No Caffeine Use Details No Tobacco Use Status Chews tobacco Smoking Status Former smoker Non-Smoking Tobacco Use Smokeless: No Details Available Smokeless: No Details Available Details Chewing: No Details Available Chewing: No Details Available Vital Signs Date / Height Weight BMI Pulse Blood Temperature Respiratory Body Head BMI Time: Rate Pressure Rate Surface Circumference percentile Area 230.40 38.3 lbs 4 mm[Hg] 2:18 kg/m PM eter (2) Chief Complaint And Reason For Visit Unknown Chief Complaint And Reason For Visit Reason For Referral Reason For Referral Unknown Plan Of Care Date Type Action Status Goal Tobacco cessation counseling completed Appointment Haritha Mcdonald BOOKED Future Order: Lab Order Pap Smear With HPV Reflex If Ordered ASCUS ([id number]) Future Order: Radiology Order Complete OB Ultrasound > 14 Weeks Ordered ([id number]) Date Type Problem Goal Intervention Status Start Date Unknown. History Of Present Illness Encounter Date Complaint History Of Present Illness This patient has no known history of present illness Functional Status Encounter Date Functional Assessment Cognitive Assessment Unknown Medications Administered Medication Instructions Dosage Effective Dates Status Comments (start - stop) 17-alphahydroxy 1 injection weekly - No Longer Progesterone IM (weeks 16-36 of Active 250mg/ml Injection ) VIAL Instructions Date Instruction Additional Information Unknown
--- OUTSIDE RECORDS SUMMARY | 2018-03-29 22:39 | External Medical Summary | Continuity of Care Document ---
:1990 Author Organization [facility] Address [address] [place], [place] [id number] Phone Support Name Relationship Address Phone Juan Ceballos [address] [place] [address] Allergies, Adverse Reactions, Alerts Substance Reaction Severity [...] Visit Members Rita [place] Suprvsn of preg Aug-1 Samson Referring In Womens w history of 6-201 Momo. 700 Provider: Agustin ALBERTO, pre-term labor, 7 Medical Momo [address], second [place] Samson O[place]io [place], [place], Luda Erickson, [facility] 700 [id number], for suprvsn of 120, Medical [facility] tel: , [place], [facility] 120, [address] second [id number] [facility]25 [facility]. [place], weeks gestation tel: [phone]. of [id number] tel:[phone] Rita [place] Suprvsn of preg Aug-1 Samson Referring In Womens w history of 0-201 Momo. 700 Provider: Agustin ALBERTO, pre-term labor, 7 Medical Momo [address], second tri [place], , [facility] 700 [id number], [facility], Medical [facility] tel: [place], [facility] 120, [address] [id number] [facility]. [place], tel: [phone]. [id number] tel:[phone] Rita [place] Suprvsn of preg Aug-0 Perales Referring In Womens w history of 2-201 Kortney. Provider: Agustin ALBERTO, pre-term labor, 7 700 Mom[address], second tri [facility] [place], [place] 700 [id number], , [place] [address], [place] tel: Umair, Ilya 120, [address] [place], Umair, [id number] [place], , [place]. [id number]. tel: tel: [phone] Rita [place] Mastitis w/out Nikita-3 Sobbing In Womens abscess 0-201 Bonilla. Health PA, 7 700 [address], Medical [place], [place], [place] [id number], Drive, [place] Suite tel: 120, [address] [place], [address], [place]. tel: [phone] Rita Block Suprvsn of preg Nikita-2 Samson Referring In Womens w history of 6-201 Momo. 700 Provider: Health DOLLY, pre-term labor, 7 Medical Momo [address], second [facility] [place], , Ilya 700 [id number], 120, Medical [place] [facility] tel: [place], Ilya 120, [address] [id number] [place], , . [place], tel: [phone]. [id number] tel:[phone] Rita [place] Suprvsn of preg Nikita-1 Samson Referring In Womens w history of 9-201 Momo. 700 Provider: Health DOLLY, pre-term labor, 7 Medical Momo [address], second Center [place], triSupervision , Ilya 700 [id number], of other high 120, Medical [place] risk [address] Dr tel: pregnancies, [place], Ilya 120, [address] second [id number] [place], [email or web address] , [place]. [place], weeks gestation tel:[phone]. of [id number] tel:[phone] Rita [place] Suprvsn of preg Nikita-1 Samson In Womens Ultrasound w history of 9-201 Momo. 700 Health PA, pre-term labor, 7 Medical [address], second Center [place], [place], triSuprvsn of , [facility] [id number], preg w 120, [place] insufficient Umair, tel: [facility] [place], [address] second [id number] triSupervision , [place]. of other high tel: risk [phone] pregnancies, second [id number] weeks gestation of Associates U[facility]ir Suprvsn of preg Ravinder- Samson In Womens w history of 9-201 Momo. 700 [facility] [place], pre-term labor, 7 Medical [address], [facility] [place], [place], triSuprvsn of Ilya Erickson [id number], preg w 120, [place] insufficient Umair, tel: [place], [address] [facility] [id number] triSupervision , [place]. of other high tel: risk [phone] pregnancies, second trimesterPap Smear Screening, [id number] weeks gestation of Associates Umair Sep- Krzysztof In Womens 0-201 Joyce. [facility], 3 700 [address], [place], [place], [place] [id number], Ilya Erickson [place] 120, tel: Umair, [address] [place], [id number] , [place]. tel: [phone] Family History Family Member Diagnosis Age At Onset Mother Breast Cancer No Family history of Family history not known. Patient is adopted. Mother Epilepsy Mother Diabetes Father Lung Disease Mother Hypertension Mother Kidney Disease Mother Ovarian Cancer Mother Lung Disease Immunizations Vaccine Date Status Comments Unknown Payers Payer name Insurance type Covered alliance party ID Authorization(s) [employer] Plan Of [place] - Medicaid MC [id number] [facility] Standard [id number] Social History Type Description Quantity Date Captured [...] Complete OB Ultrasound > 14 Weeks Ordered ([id number]) Date Type Problem Goal Intervention Status Start [...]
--- OUTSIDE RECORDS SUMMARY | 2018-03-29 22:39 | External Medical Summary | Continuity of Care Document ---
:[address] [facility] Address [address] [place], [place] [id number] Phone Support Name Relationship Address Phone Juan Ceballos [address] [place] [address] Allergies, Adverse Reactions, Alerts Substance Reaction Severity Status No Known Drug Allergies Unknown Active Medications Medication Instructions Dosage Effective Dates Status Comments (start - stop) Keflex 500 mg capsule take 1 capsule by ORAL 500 MG - Active route 4 times every day Mirena 20 mcg/24 hr (5 - - Active years) intrauterine device ProAir HFA 90 inhale 1 puff by - Active mcg/actuation aerosol inhalation route inhaler every 4 - 6 hours as needed Problems Condition Effective Dates (start - stop) Clinical Status Mastitis W/out Abscess Encounter for insertion of intrauterine contraceptive device Encounter for test, result - negative Follow-Up, Routine Mastitis w/out abscess - Encntr for f/u exam aft trtmt for cond oth than malig neoplm Encounter for routine checking of intrauterine contracep dev Pap Smear Screening, Cervix - Encounter For Screening For - Streptococcus B Asthma Active Migraines Active Active Procedures Procedure Date Office/outpatient visit,est, mod Results Test Name Date and Time Measure Units Reference Range Abnormal Flag Comments Unknown Advance Directives Directive Yes / No Effective Date File Name Unknown Encounters Encounter Practice Location Reason(s) Diagnoses Date Provider Care Team Description For Visit Members Office/outpa Associates Umair Ocasio breast Mastitis W/out Neil sue In Women pain Abscess 0-201 Ksenia. visit,[facility], (chief 8 700 mod PO Box complaint) Medical [address] [place], [place], 120, , [place], [place], tel:[phone] , [place]. tel: [phone] Rita [place] Encntr for f/u exam [place] In Womens aft trtmt for cond 5-201 Fariba. Health DOLLY, ottheodore than mal 8 700 PO Box neoplmEncounter for Medical 1522, routine checking of [facility], intrauterine , Ilya CHACKO, contracep dev 120, [id number], [place], tel:[phone] , [place]. tel: [phone] Rita [place] Encounter for Dec-2 Samson In Womens insertion of 6-201 Momo. 700 Agustin ALBERTO, intrauterine 7 Medical PO Box contraceptive Center 1522, deviceEncounter for [place] Erickson, test, [facility] named [facility], [place], result [place], , negativePostpartum [place], Follow-Up, Routine tel: , [place]. tel: [phone] Rita [place] Encounter For Nov-0 Samson Referring In Womens Screening 2-201 [place]. 700 Provider: Agustin ALBERTO, For Streptococcus B 7 [facility] PO [address]y Samson Ocasio, [address], Dr [place] [address] [place], 120, Medical [facility] [id number], [place], [facility] 120, [place] [id number] Umair, tel: , . [place], tel:[phone]. [id number] tel:[phone] Rita [place] Sep-2 Samson Referring In Womens 8-201 [place]. 700 Provider: Agustin ALBERTO 7 [facility] PO Box Gracey Samson Ocasio 1522, [place] Erickson, 120, Medical [facility] [id number], [place], [facility] 120, [place] [id number] Umair, tel: , . [place], tel: [phone]. [id number] tel:[phone] Rita [place] Mastitis w/out Sobbing In Womens abscess 0-201 Custar. Health DOLLY, 7 700 PO Box Medical 1522, [facility], [facility], [place], [id number], 120, [place], tel: [place], [phone], [place]. tel: [phone] Associates Umair Pap Smear Ravinder- Samson In Womens Screening, Cervix 9-201 Momo. 700 Health [place], 7 Medical PO Box Center 1522, , [place], 120, [place], [place], [id number], [place], [place] [id number] tel: , [place]. tel: [phone] Rita [place] Renny- Farraheman In Womens 0-201 Joyce. Health [place], 3 700 PO Box Medical [address], [address] Orestes, [facility], 120, [id number], [place], [facility], tel: [phone] , [place]. tel: [phone] Family History Family Member Diagnosis Age At Onset Mother Breast Cancer No Family history of Family history not known. Patient is adopted. Mother Epilepsy Mother Diabetes Father Lung Disease Mother Hypertension Mother Kidney Disease Mother Ovarian Cancer Mother Lung Disease Immunizations Vaccine Date Status Comments Tdap completed Source: New Immunization Record Payers Payer name Insurance type Covered constitution party ID Authorization(s) [employer] [place] - Medicaid MC [id number] Standard [id number] [employer] [place] - Medicaid [place] [id number] Social History Type Description Quantity Date Captured Alcohol Use Details No Caffeine Use Details No Tobacco Use Status Chews tobacco Smoking Status Former smoker Non-Smoking Tobacco Use Chewing: No Details Available Chewing: No Details Available Details Smokeless: No Details Available Smokeless: No Details Available Vital Signs Date / Height Weight BMI Pulse Blood Temperature Respiratory Body Head BMI Time: Rate Pressure Rate Surface Circumference percentile Area 236.50 68 106/72 98.20 lbs /min mm[Hg] 9:27 AM Chief Complaint And Reason For Visit Most recent encounter only, dated '03/22/2018 09:30'. R breast pain ( chief complaint). Description: 27 yr wf gr 3 p 3 presents today with a CC of R breastpain/mastitis.HPI: Onset 2 days ago of mastitis in her R breast. Reports that her R nipple is red, swollen, more inverted and painful. Denies fever. Not BF. Same type of infection happened in March 2017. Hospitalized with IV meds during PG. Tried OTC pain meds which helped very little. Denies drainage. Reason For Referral Reason For Referral Unknown Plan Of Care Date Type Action Status Goal Lifestyle education regarding completed diet Goal Tobacco cessation counseling completed Future Order: Radiology Order Breast Ultrasound Right Breast Ordered ([id number]) Date Type Problem Goal Intervention Status Start Date Unknown. History Of Present Illness Encounter Date Complaint History Of Present Illness R breast pain 27 yr wf gr 3 p 3 presents today with a CC of R breast pain/mastitis.HPI: Onset 2 days ago of mastitis in her R breast. Reports that her R nipple is red, swollen, more inverted and painful. Denies fever. Not BF. Same type of infection happened in March 2017. Hospitalized with IV meds during PG. Tried OTC pain meds which helped very little. Denies drainage. Functional Status Encounter Date Functional Assessment Cognitive Assessment Unknown Medications Administered Medication Instructions Dosage Effective Dates (start - stop) Status Comments Drug Treatment Unknown Instructions Date Instruction Additional Information Giving encouragement to exercise Related to Body mass index 39.0- 39.9 Lifestyle education regarding diet Related to Body mass index 39.0-39.9
--- OUTSIDE RECORDS SUMMARY | 2018-03-29 22:39 | External Medical Summary | Continuity of Care Document ---
:1990 Author Organization [facility] Address [address] [place], [place] [id number] Phone Support Name Relationship Address Phone Juan Ceballos [address] [place] [address] Allergies, Adverse Reactions, Alerts Substance Reaction Severity [...] Members Rita [place] Suprvsn of preg w Oct-2 Samson Referring In Womens history of 6-201 Momo. 700 Provider: Health PA, pre-term labor, 7 Medical Momo PO Box third [id number] Center Samson R, 1522, weeks gestation , [place] [address] [place], of 120, Medical [place], [place], [place] [id number], [place], [place] 120, [place] [id number] Umair, tel: , [place]. [place], tel:[phone]. [id number] tel:[phone] Rita [place] Suprvsn of preg w Oct-2 Balbir Referring In Womens history of 0-201 Rufina. Provider: Health DOLLY, pre-term labor, [address] [place] [address] PO Box third trimester Medical Samson R, 1522, Center [address], [facility], 120, Center [id number], [place], [facility] 120, [place] Umair CHACKO, tel:[phone] [place], , [place]. [id number]. tel: tel: [phone] Rita [place] Suprvsn of preg w Oct-1 Samson Referring In Womens history of 2-201 Momo. 700 Provider: Health PA, pre-term labor, 7 Medical Momo PO Box third [place] Samson R, 1522, trimesterEncounte , [place] [address] [place], [place] for suprvsn of 120, Medical [place], normal , [facility] [id number], third [place], [facility] 120, [place] weeks gestation [id number] Umair, tel: of , [place]. [place], tel:[phone]. [id number] tel:[phone] Rita [place] Supervision of Oct-1 Samson In Womens Ultrasound other high risk 2-201 Momo. 700 Health [place], pregnancies, 7 Medical PO Box third Center 1522, trimesterMaternal , [facility] [place], care for oth 120, [place], abnormality Umair, [id number], and damage, [place], [place] unsp33 weeks [id number] tel: gestation of , [place]. tel: [phone] Rita [place] Suprvsn of preg w Sep-2 Samson Referring In Womens history of 8-201 Momo. 700 Provider: Agustin ALBERTO, pre-term labor, 7 Medical Momo PO Box third Center Samson R, 1522, trimesterBernabe Erickson, [place] 700 [place] for suprvsn of 120, Medical [place], normal , [facility] [id number], third [id number] [place], [place] 120, [place] weeks gestation [id number] Umair, tel: of , [place]. [place], tel:[phone]. [phone] tel:[phone] Associates Umair Suprvsn of preg w Sep-2 Sobbing Referring In Womens history of 5-201 Bonilla. Provider: Agustin ALBERTO, pre-term labor, [address] [place] [address] PO Box third trimester Medical Samson R, 1522, Center [address] [place], [address], Medical [place], Suite Center [id number], 120, [place]a 120, [place] Uma[place], [place]: [place], [address], [id number]. [place]. tel: tel: [phone] Associates Umair Sep-2 Samson In Womens 5-201 Momo. 700 Agustin ALBERTO, 7 Medical PO Box Center 1522, , [facility] [place], 120, [place], Umair, [id number], [place], [place] [id number] tel: , [place]. tel: [phone] Rita [place] Suprvsn of preg w Sep-1 Samson Referring In Womens history of 4-201 Momo. 700 Provider: Agustin ALBERTO, pre-term labor, 7 Medical Momo PO Box third Center Samson R, 1522, trimesterBernabe Erickson, [facility] 700 [place] for suprvsn of 120, Medical [place], normal , [facility] [id number], third [id number] [place], [place]a 120, [place] weeks gestation [id number] Umair, tel: of , [place]. [place], tel:[phone]. [id number] tel:[phone] Rita [place] Suprvsn of preg w Sep-0 Samson Referring In Womens history of 8-201 Momo. 700 Provider: Agustin ALBERTO, pre-term labor, 7 Medical Momo PO Box third trimester Center Samson Ocasio, 1522, , [place]ly[place] 700 [place], 120, Medical [facility] [id number], [place], [facility] 120, [place] [id number] Umair, tel: , [place]. [place], tel: [phone]. [id number] tel:[phone] Associates Umair Suprvsn of preg w Sep-0 Samson Referring In Womens history of 1-201 Momo. 700 Provider: Agustin ALBERTO, pre-term labor, 7 Medical Momo PO Box second tri Center Samson Ocasio, 1522, , [place]ly[place] 700 [place], 120, Medical [facility] [id number], [place], [facility] 120, [place] [id number] Umair, tel: , [place]. [place], tel: [phone]. [phone] tel:[phone] Associates Umair Suprvsn of preg w Aug-2 Samson Referring In Womens history of 4-201 Momo. 700 Provider: Agustin ALBERTO, pre-term labor, 7 Medical Momo PO Box second [facility] Center Samson Ocasio, 1522, , Ilya 700 [place], 120, Medical [facility] [id number], [place], [facility] 120, [place] [id number] Umair, tel: , [place]. [place], tel: [phone]. [id number] tel:[phone] Associates Umair Suprvsn of preg w Aug-1 Samson Referring In Womens history of 6-201 Momo. 700 Provider: Agustin ALBERTO, pre-term labor, 7 Medical [facility] Box second [place] Samson R, 1522, [facility][note 2] for , Ilya 700 [place], suprvsn of normal 120, Medical [place], , second [facility] [id number], [id number] weeks [place], [facility] 120, [place] gestation of [id number] Umair, tel: , [place]. [place] tel: [phone]. [phone] tel:[phone] Associates Umair Suprvsn of preg w Aug-1 Samson Referring In Womens history of 0-201 Momo. 700 Provider: Agustin ALBERTO, pre-term labor, 7 [facility] Samson R, 1522, , [address], 120, Medical [facility] [id number], [place], [facility] 120, [place] [id number] Umair, tel: , [place]. [place], tel: [phone]. [id number] tel:[phone] Associates Umair Suprvsn of preg w Aug-0 Peraels Referring In Womens history of 2-201 Kortney. Provider: Health DOLLY, pre-term labor, [address] [place] [address] Samson R, 1522, Center [address], [facility], [facility], [place] [id number], [place] [address], Umair CHACKO, tel:[phone] [place], , [place]. [id number]. tel: tel: [phone] Associates Umair Mastitis w/out Mar-3 Sobbing In Womens abscess 0-201 Bonilla. Health DOLLY, [address] [place] [address] 1522, [place], [place], [address] [id number], 120, [place], [address], [place]. tel: [phone] Rita [place] Suprvsn of preg w Nikita-2 Samson Referring In Womens history of 6-201 Momo. 700 Provider: Health DOLLY, pre-term labor, 7 [facility] Samson R, 1522, , [address], 120, Medical [facility] [id number], [place], [facility] 120, [place] [id number] Umair, tel: , [place]. [place], tel: [phone]. [id number] tel:[phone] Associates Umair Suprvsn of preg w Mar-1 Samson Referring In Womens history of 9-201 Momo. 700 Provider: Health DOLLY, pre-term labor, 7 [facility] Samson R, 1522, triSupervision of , [facility] Gian[address] [place], other high risk 120, Medical GINNA, pregnancies, [facility] [id number], [facility], Ilya 120, [place] [id number] weeks [id number] [place], tel: gestation of , [place]. [place], tel: [phone]. [id number] tel:[phone] Associates Umair Millsvsn of preg w Mar- Samson In Womens Ultrasound history of 9-201 Momo. 700 [facility], pre-term labor, 7 Medical PO Box second triSuprvsn Center 1522, of preg w [place] Erickson, insufficient 120, [place], [facility] Umair [place], [id number], second [place], triSupervision of [id number] tel: other high risk , [place]. pregnancies, tel: second [phone] [id number] weeks gestation of Associates Umair Suprvsn of preg w Feb- Samson In Womens history of 9-201 Momo. 700 [facility], pre-term labor, 7 Medical PO Box second triSuprvsn Center 1522, of preg w [place] Erickson, insufficient 120, [place], [facility] Umair [place], [id number], second [place], triSupervision of [id number] tel: other high risk , . pregnancies, tel: second [phone] trimesterPap Smear Screening, [id number] weeks gestation of Associates Umair Sep- Krzysztof In Womens 0-201 Joyce. [facility], 3 700 PO Box Medical 1522, Center Dr Orestes, [facility], 120, [id number], [place], [place], tel: [phone] , [place]. tel: [phone] Family History Family Member Diagnosis Age At Onset Mother Breast Cancer No Family history of Family history not known. Patient is adopted. Mother Epilepsy Mother Diabetes Father Lung Disease Mother Hypertension Mother Kidney Disease Mother Ovarian Cancer Mother Lung Disease Immunizations Vaccine Date Status Comments Unknown Payers Payer name Insurance type Covered alliance party ID Authorization(s) [employer] [place] - Medicaid MC [id number] [facility] Standard [id number] Social History Type Description Quantity Date Captured Alcohol Use Details No Caffeine Use Details Unknown Tobacco Use Status Smoking Status Former smoker Vital Signs Date / Height Weight BMI Pulse Blood Temperature Respiratory Body Head BMI Time: Rate Pressure Rate Surface Circumference percentile Area . 0 5:03 kg/m PM eter (2) Chief Complaint And Reason For Visit Unknown Chief Complaint And Reason For Visit Reason For Referral Reason For Referral Unknown Plan Of Care Date Type Action Status Goal Tobacco cessation counseling completed Appointment Haritha Mcdonald BOOKED Future Order: Radiology Order Complete OB Ultrasound > 14 Weeks Ordered ([id number]) Future Order: Radiology Order Ultrasound OB Follow-up ([id number]) Ordered Date Type Problem Goal Intervention Status [...]
--- OUTSIDE RECORDS SUMMARY | 2018-03-29 22:40 | External Medical Summary | Continuity of Care Document ---
:1990 Author Organization [facility] Address [address] [place], [place] [id number] Phone Support Name Relationship Address Phone Juan Ceballos [address] [place] [address] Allergies, Adverse Reactions, Alerts Substance Reaction Severity [...] Visit Members Rita [place] Suprvsn of preg Samson Referring In Womens w history of 0-201 Momo. 700 Provider: Agustin ALBERTO, pre-term labor, 7 Medical Momo [address], second [facility] [place], , [place] [id number], 120, [facility] tel:+21 [place], [facility] 120, [address] [id number] [facility]. [place], tel: [phone]. [phone] tel:[phone] Rita [place] Suprvsn of preg Perales Referring In Womens w history of 2-201 Kortney. Provider: Agustin ALBERTO, pre-term labor, 7 700 Momo [address], second [facility] [place], [place] 700 [id number], , [place] [address], [place] tel:+ [facility] 120, [address] Umair CHACKO, [id number] [facility] , . [id number]. tel: tel: [phone] Rita [place] Mastitis w/out Sobbing In Womens abscess 0-201 Bonilla. Agustin ALBERTO, 7 700 [address], [facility] [place], [place] [id number], [facility], Suite tel:+[phone], [address] [place], [address], . tel: [phone] Rita [place] Suprvsn of preg Samson Referring In Womens w history of 6-201 Momo. 700 Provider: Agustin ALBERTO, pre-term labor, 7 Medical Momo [address], second tri Center [place], , [facility] 700 [id number], 120, Medical [place] Umair [place] tel: [place], I[place] 120, [id number] [place], , [place]. [place], tel:[phone]. [phone] tel:[phone] Rita [place] Suprvsn of preg Nikita-1 Samson Referring In Womens w history of 9-201 Momo. 700 Provider: Health PA, pre-term labor, 7 Medical Momo [address], second Center Samson R, [place], [place], triSupervision , [place] [id number], of other high 120, Medical [place] risk Umair [place] tel: pregnancies, [place], [place] 120, [address] second [id number] [place], [id number] , [place]. [place], weeks gestation tel:[phone]. of [phone] tel:[phone] Rita [place] Suprvsn of preg Nikita-1 Samson In Womens Ultrasound w history of 9-201 Momo. 700 Health PA, pre-term labor, 7 Medical [address], second Center [place], [place], triSuprvsn of Dr [facility] [id number], preg w 120, [place] insufficient Umair, tel: [place], [address] second [id number] triSupervision , [place]. of other high tel: risk [id number] pregnancies, second [id number] weeks gestation of Associates Umair Suprvsn of preg Ravinder-2 Samson In Womens w history of 9-201 Momo. 700 Health PA, pre-term labor, 7 Medical [address], second [place], [place], triSuprvsn of Dr [facility] [id number], preg w 120, [place] insufficient Umair, tel: [place], [address] second [id number] triSupervision , [place]. of other high tel: risk [phone] pregnancies, second trimesterPap Smear Screening, [id number] weeks gestation of Associates Umair Sep- Krzysztof In Womens 0-201 Joyce. Health [place], 3 700 [address], [place], [place], [place] [id number], Dr [facility] [place] 120, tel: Umair, [address] [place], [id number] , . tel: [phone] Family History Family Member Diagnosis Age At Onset Mother Breast Cancer No Family history of Family history not known. Patient is adopted. Mother Epilepsy Mother Diabetes Father Lung Disease Mother Hypertension Mother Kidney Disease Mother Ovarian Cancer Mother Lung Disease Immunizations Vaccine Date Status Comments Unknown Payers Payer name Insurance type Covered republican ID Authorization(s) [employer] [place] - Medicaid MC [id number] [facility] Standard [id number] Social History Type Description Quantity Date Captured [...] Complete OB Ultrasound > 14 Weeks Ordered ([id number]) Date Type Problem Goal Intervention Status Start [...]
--- OUTSIDE RECORDS SUMMARY | 2018-03-29 22:40 | External Medical Summary | Continuity of Care Document ---
:1990 Author Organization [facility] Address [address] [place], [place] [id number] Phone Support Name Relationship Address Phone Juan Ceballos [address] [place] [address] Allergies, Adverse Reactions, Alerts Substance Reaction Severity [...] w insufficient antenat - care, second tri 18 weeks gestation of - Supervision of other high risk - pregnancies, second trimester Pap Smear Screening, Cervix - Suprvsn of preg w history of pre-term - labor, second tri Suprvsn of preg w history of pre-term - labor, second tri Supervision of other high risk - pregnancies, second trimester 21 weeks gestation of - Suprvsn of preg w insufficient antenat - care, second tri Suprvsn of preg w history [...] history of pre-term - labor, third trimester 29 weeks gestation of - Encounter for suprvsn of normal - , third trimester Suprvsn of preg w history of pre-term - labor, third trimester Asthma Active Migraines Active Procedures Procedure Date Injection Administration Injectable Drug - Do Not Bill Results Test Name Date and Time Measure Units Reference Range Abnormal Flag Comments Unknown Advance Directives Directive Yes / No Effective Date File Name Unknown Encounters Encounter Practice Location Reason(s) Diagnoses Date Provider Care Team Description For Visit Members Rita Block Suprvsn of preg w Sep-2 Samson Referring In Womens history of 8-201 Momo. 700 Provider: Health PA, pre-term labor, 7 Medical Momo PO Box [facility] Samson Ocasio, 1522, trimesterEncounte , Ilya [address] [place] for suprvsn of 120, Medical [place], normal , [facility] [id number], third [email or web address] [place], Ilya 120, [place] weeks gestation [id number] Umair, tel: of , [place]. [place], tel: [phone]. [id number] tel:[phone] Rita Block Suprvsn of preg w Sep-2 Sobbing Referring In Womens history of 5-201 Bonilla. Provider: Agustin ALBERTO, pre-term labor, 7 700 Momo [address] Box third trimester Medical Samson R, 1522, Center [address] [place], [address], Medical [place], Suite Center [id number], 120, Ilya 120, [place] Umair [place], [place]: [place], [address], [id number]. [place]. tel: tel: [phone] [facility] Suprvsn of preg w Sep-1 Samson Referring In Womens history of 4-201 Momo. 700 Provider: Agustin ALBERTO, pre-term labor, 7 Medical Momo PO Box third [email or web address] Center Samson R, 1522, weeks gestation , [place] [address] [place], of 120, Medical [place], [facility]ethod[facility] [id number], r for suprvsn of [place], Ilya 120, [place] normal , [id number] Umair, tel: third trimester , [place]. [place], tel: [phone]. [id number] tel:[phone] Rita Block Suprvsn of preg w Sep-0 Samson Referring In Womens history of 8-201 Momo. 700 Provider: Agustin ALBERTO, pre-term labor, 7 Medical Momo PO Box third trimester Center Samson R, 1522, , Ilya [place], 120, Medical [facility] [id number], [place], Ilya 120, [place] [id number] Umair, tel: , [place]. [place], tel: [phone]. [id number] tel:[phone] iRta Block Suprvsn of preg w Sep-0 Samson Referring In Womens history of 1-201 Momo. 700 Provider: Agustin ALBERTO, pre-term labor, 7 Medical Momo PO Box second tri Center Samson R, 1522, , Ily[place], 120, Medical [facility] [id number], [place], Ilya 120, [place] [id number] Umair, tel: , [place]. [place], tel: [phone]. [id number] tel:[phone] [facility] Suprvsn of preg w Aug-2 Samson Referring In Womens history of 4-201 Momo. 700 Provider: Health DOLLY, pre-term labor, 7 Medical Momo PO Box [facility] Samson R, 1522, , Ilya 700 [place], 120, Medical [facility] [id number], [place], [facility] 120, [place] [id number] Umair, tel: , . [place] tel: [phone]. [id number] tel:[phone] Associates [facility] Suprvsn of preg w Aug-1 Samson Referring In Womens history of 6-201 Momo. 700 Provider: Agustin ALBERTO, pre-term labor, 7 Medical [facility] Box [facility] Samson R, 1522, [facility] , [place] [address] [place], suprvsn of normal 120, Medical [place], , second [facility] [id number], [id number] weeks [place], [facility] 120, [place] gestation of [id number] Umair, tel: , [place]. [place], tel: [phone]. [phone] tel:[phone] Associates [facility] Suprvsn of preg w Aug-1 Samson Referring In Womens history of 0-201 Momo. 700 Provider: Agustin ALBERTO, pre-term labor, 7 Medical [facility] Box [facility] Samson R, 1522, , Ilya 700 [place], 120, Medical [facility] [id number], [place], [facility] 120, [place] [id number] Umair, tel: , [place]. [place], tel: [phone]. [id number] tel:[phone] [facility] Suprvsn of preg w Aug-0 Perales Referring In Womens history of 2-201 Kortney. Provider: Agustin ALBERTO, pre-term labor, 7 700 [facility] Box [facility] Samson R, 1522, Center [address], [facility] Medical [place], 120, [place] [id number], Block, [facility] 120, Umair CHACKO, tel:[phone] [place], , [place]. [id number]. tel: tel: [phone] Associates U[facility]ir Mastitis w/out Mar-3 Sobbing In Womens abscess 0-201 Bonilla. Health DOLLY, 7 700 PO Box Medical 1522, Center [place], [address], [place], [address] [id number], 120, [place], [place]: [place], [address], [place]. tel: [phone] Rita Block Suprvsn of preg w Mar-2 Samson Referring In Womens history of 6-201 Momo. 700 Provider: Health PA, pre-term labor, 7 Medical [place] PO Box second tri Center Samson R, 1522, , Ilya 700 [place], 120, Medical [place], [facility] [id number], [place], [facility] 120, [place] [id number] Umair, tel: , [place]. [place], tel: [phone]. [id number] tel:[phone] Rita Block Suprvsn of preg w Mar-1 Samson Referring In Womens history of 9-201 Momo. 700 Provider: Health DOLLY, pre-term labor, 7 Medical [place] PO Box second Center Samson R, 1522, triSupervision of Ilya Erickson [place], other high risk 120, Medical [place], pregnancies, [facility] , [facility], [facility] 120, US [id number] weeks [id number] Umair, tel: gestation of , [place]. [place], tel: [phone]. [id number] tel:[phone] Rita Block Suprvsn of preg w Mar-1 Samson In Womens Ultrasound history of 9-201 Momo. 700 Health PA, pre-term labor, 7 Medical PO Box [facility] Center 1522, triSupervision of Ilya Erickson, other high risk 120, [place], pregnancies, Block, [id number], [facility], [id number] weeks [id number] tel: gestation of , [place]. pregnancySuprvsn tel: of preg w [phone] insufficient antenat care, second tri [facility] Suprvsn of preg w Ravinder-2 Samson In Womens history of 9-201 Momo. 700 Health PA, pre-term labor, 7 Medical PO Box second triSuprvsn Center 1522, of preg w , [place], insufficient 120, [place], [facility] care, Block, [id number], second tri18 [place], [place] weeks gestation [id number] tel: of , [place]. pregnancySupervis tel: ion of other high [id number] risk pregnancies, second trimesterPap Smear Screening, Cervix Associates U[facility]ir Krzysztof In Womens 0-201 Joyce. [facility], 3 700 PO Box Medical [address], Center [address], [place], 120, [id number], Block, [place], tel:[phone] , [place]. tel: [phone] Family History Family Member Diagnosis Age At Onset Mother Breast Cancer No Family history of Family history not known. Patient is adopted. Mother Epilepsy Mother Diabetes Father Lung Disease Mother Hypertension Mother Kidney Disease Mother Ovarian Cancer Mother Lung Disease Immunizations Vaccine Date Status Comments Unknown Payers Payer name Insurance type Covered democrat ID Authorization(s) [employer] [place] - Medicaid [place] [id number] [facility] Standard [id number] Social History Type Description Quantity Date Captured [...] cessation counseling completed Appointment Haritha Mcdonald BOOKED Appointment Haritha Mcdonald BOOKED Future Order: Radiology Order Complete OB Ultrasound > 14 Weeks Ordered ([id number]) Date Type Problem Goal Intervention Status Start [...]
--- OUTSIDE RECORDS SUMMARY | 2018-03-29 22:40 | External Medical Summary | Continuity of Care Document ---
:1990 Author Organization [facility] Address [address] [place], [place] [phone] Phone Support Name Relationship Address Phone Juan Ceballos [address] [place] [address] Allergies, Adverse Reactions, Alerts Substance Reaction Severity [...] Dates (start - stop) Clinical Status Mastitis w/out abscess - Suprvsn of preg [...] pregnancies, second trimester Suprvsn of preg w insufficient antenat - care, second tri 21 weeks gestation of - Suprvsn of [...] Asthma Active Migraines Active Procedures Procedure Date Observ or inpatient hospcare, mod Results Test Name Date and Time Measure Units Reference Range Abnormal Flag Comments Unknown Advance Directives Directive Yes / No Effective Date File Name Unknown Encounters Encounter Practice Location Reason(s) Diagnoses Date Provider Care Team Description For Visit Members Rita Block Suprvsn of preg w Sep-0 Samson Referring In Womens history of 1-201 Momo. 700 Provider: Agustin ALBERTO, pre-term labor, 7 Medical Momo PO Box [facility] [address], Ilya 700 [place], 120, Medical [facility] [id number], [place], [facility] 120, [id number] Umair, tel: , . [place], tel: [phone]. [phone] tel:[phone] Associates [facility] Suprvsn of preg w Apr-2 Samson Referring In Womens history of 4-201 Momo. 700 Provider: Agustin ALBERTO, pre-term labor, 7 Medical Momo PO Box [facility] [address], Ilya 700 [place], 120, Medical U[facility]ir [facility] [id number], [place], [facility] 120, [id number] Umair, tel: , [facility], tel: [phone]. [id number] tel:[phone] Rita Block Suprvsn of preg w Apr-1 Samson Referring In Womens history of 6-201 Momo. 700 Provider: Agustin ALBERTO, pre-term labor, 7 Medical Momo PO Box second [place] [address] [place], triEncsan [facility] lexi Erickson, Ilya 700 [place], suprvsn of normal 120, Medical [place], , second [facility] [id number], [id number] weeks [place], Ilya 120, [place] gestation of [id number] Umair, tel: , [place]. [place], tel:[phone]. [id number] tel:[phone] Rita Block Suprvsn of preg w Apr-1 Samson Referring In Womens history of 0-201 Momo. 700 Provider: Agustin ALBERTO, pre-term labor, 7 [facility] Samson R, 1522, , Ilya 700 [place], 120, Medical [facility] [id number], [place], Ilya 120, [place] [id number] Umair, tel: , [place]. [place], tel:[phone]. [phone] tel:[phone] Rita Block Suprvsn of preg w Apr-0 Perales Referring In Womens history of 2-201 Kortney. Provider: Agustin ALBERTO, pre-term labor, [address] [place] [address] Samson R, 1522, Center [facility] Dr Orest[place], [facility], 120, [place] [id number], Block, [facility] 120, [place] Umair CHACKO, tel:[phone] [place], , [place]. [id number]. tel: tel: [phone] Observ or Associates U[facility]ir Mastitis w/out Mar- Sobbing inpatient In Womens abscess 0-201 Bonilla. hospcare, Agustin ALBERTO, [address] [place] [address] Medical 1522, [facility], [facility], [place], Suite , 120, [place], [place]: [place], [address], [place]. tel: [phone] Rita Block Suprvsn of preg w Mar-2 Samson Referring In Womens history of 6-201 Momo. 700 Provider: Agustin ALBERTO, pre-term labor, 7 Medical [facility] Samson R, 1522, , Ilya 700 [place], 120, Medical [facility]mair [facility] [id number], [place], Ilya 120, [place] [id number] Umair, tel: , [place]. [place], tel: [phone]. [id number] tel:[phone] Associates [facility] Suprvsn of preg w Samson Referring In Womens history of Momo. 700 Provider: Health PA, pre-term labor, 7 Medical Momo PO Box second Center Samson R, 1522, triSupervision of Ilya Erickson, other high risk 120, Medical [place], pregnancies, [facility] [id number], second GIN[place], Ilya 120, US [id number] weeks [id number] Umair, tel: gestation of , [place]. [place], tel: [phone]. [id number] tel:[phone] [facility] Suprvsn of preg w Samson In Womens Ultrasound history of Momo. 700 Health PA, pre-term labor, 7 Medical PO Box second Center 1522, triSupervision of Ilya Erickson, other high risk 120, [place], pregnancies, Block, , second [place], [place] trimesterSuprvsn [id number] tel: of preg w , [place]. insufficient tel: antenat care, [id number] second tri21 weeks gestation of Associates U[facility]ir Suprvsn of preg w Feb- Samson In Womens history of - Momo. 700 Health PA, pre-term labor, 7 Medical PO Box second triSuprvsn Center 1522, of preg w Ilya Erickson, insufficient 120, [place], antenat careUmair, , second [place], triSupervision of [id number] tel: other high risk , [place]. pregnancies, tel: second [phone] trimesterPap Smear Screening, Clkoaj25 weeks gestation of Associates Umair Krzysztof In Womens 0-201 Joyce. Health PA, 3 700 PO Box Medical 1522, [place], Ilya Erickson, 120, [id number], Block, [place], tel:[phone] , [place]. tel: [phone] Family History Family Member Diagnosis Age At Onset Mother Breast Cancer No Family history of Family history not known. Patient is adopted. Mother Epilepsy Mother Diabetes Father Lung Disease Mother Hypertension Mother Kidney Disease Mother Ovarian Cancer Mother Lung Disease Immunizations Vaccine Date Status Comments Unknown Payers Payer name Insurance type Covered constitution party ID Authorization(s) [employer] [place] - Medicaid [place] [id number] Standard [id number] Social History Type Description Quantity Date Captured Unknown Vital Signs Date / Height Weight BMI [...] Complete OB Ultrasound > 14 Weeks Ordered ([id number]) Date Type Problem Goal Intervention Status Start [...]
--- OUTSIDE RECORDS SUMMARY | 2018-03-29 22:40 | External Medical Summary | Continuity of Care Document ---
:1990 Author Organization [facility] Address [address] [place], [place] [phone] Phone Support Name Relationship Address Phone Juan Ceballos [address] [place] [address] Allergies, Adverse Reactions, Alerts Substance Reaction Severity [...] Dates (start - stop) Clinical Status Encounter For Screening For - Streptococcus B 36 weeks gestation of - Mastitis w/out abscess - Pap Smear Screening, Cervix - Asthma Active Migraines Active Active Procedures Procedure Date Immuniz admnin, 1 vac, sngl/combo 19 Yrs + TDAP VACCINE >7 IM OB Visit No Charge Results Test Name Date and Time Measure Units Reference Range Abnormal Flag Comments Panel Description: STREPTOCOCCUS, GROUP B CULTURE STREPTOCOCCUS, GROUP SEE NOTE STREPTOCOCCUS, GROUP B CULTURE B CULTURE 10:45:00 MICRO NUMBER: [id number] TEST STATUS: FINAL SPECIMEN SOURCE: VAGINAL/ANORECTAL SPECIMEN QUALITY: ADEQUATE RESULT: No group B Streptococcus isolatedREPORT COMMENT:FASTING:UNKNOWNTest performed at NCR [id number] [place] [address]Lcrttqfh: JASMYN BUSBY DO,MPH Advance Directives Directive Yes / No Effective Date File Name Unknown Encounters Encounter Practice Location Reason(s) Diagnoses Date Provider Care Team Description For Visit Members Rita Block Encounter For Samson Referring In Women -2017 [place]. 700 Provider: Agustin ALBERTO, Screening For Medical Momo [address], Streptococcus Center [place], B36 weeks , [place] [id number], gestation of 120, Medical Umair [place] tel:+21 [place], [place] 120, [address] [id number] [facility]. [place], tel: [phone]. [id number] tel:[phone] Rita Block Samson Referring In Womens -2017 Momo. 700 Provider: Health DOLLY, Medical Momo [address], Center [place], , [place] [id number], 120, Medical [facility] tel:+21 [place], [place] 120, [id number] [facility]. [place], tel: [phone]. [id number] tel:[phone] Rita Block Mastitis w/out Sobbing In Womens abscess -2016 Bonilla. Agustin ALBERTO 700 [address], [place], [place], [place] [id number], [facility], Suite tel:21 120, [address] [place], [address], [place]. tel: [phone] Rita Block Pap Smear Samson In Womens Screening, -2016 [place]. 700 Agustin ALBERTO, Cervix Medical [address], [place], , [facility] [id number], 120, [place] Umair, tel:+21 [place], [id number] , . tel: [phone] Rita Block Holdeman In Womens -2012 Joyce. Health DOLLY, 700 [address], [place], [place], [place] [id number], , [facility] 120, tel:+21 [place], [address] [place], [id number] , [place]. tel: [phone] Family History Family Member Diagnosis Age At Onset Mother Breast Cancer No Family history of Family history not known. Patient is adopted. Mother Epilepsy Mother Diabetes Father Lung Disease Mother Hypertension Mother Kidney Disease Mother Ovarian Cancer Mother Lung Disease Immunizations Vaccine Date Status Comments Tdap completed Source: New Immunization Record Payers Payer name Insurance type Covered libertarian ID Authorization(s) [employer] [place] - Medicaid MC [id number] Standard [id number] [employer] [place] - Medicaid MC [id number] Social History Type Description Quantity Date Captured Alcohol Use Details No Caffeine Use Details No Tobacco Use Status Chews tobacco Smoking Status Former smoker Vital Signs Date / Height Weight BMI Pulse Blood Temperature Respiratory Body Head BMI Time: Rate Pressure Rate Surface Circumference percentile Area 237.70 39.5 120/ lbs 5 mm[Hg] 10:23 kg/m AM eter (2) Chief Complaint And [...]
--- OUTSIDE RECORDS SUMMARY | 2018-03-29 22:40 | External Medical Summary | Continuity of Care Document ---
:1990 Author Organization [facility] Address [address] [place], [place] [id number] Phone Support Name Relationship Address Phone Juan Ceballos [address] [place] [address] Allergies, Adverse Reactions, Alerts Substance Reaction Severity [...] third trimester 31 weeks gestation of - Suprvsn of preg [...] Asthma Active Migraines Active Procedures Procedure Date OB Visit No Charge Injection Administration Injectable Drug - Do Not [...] history of 2-201 Momo. 700 Provider: Health DOLLY, pre-term labor, 7 Medical [facility] third Center Samson R, 1522, trimesterEncounte , Ilya 700 Orestes r for suprvsn of 120, Medical [place], normal , [facility] [id number], third [id number] [place], Ilya 120, [place] weeks gestation [id number] Block, tel: of , [place]. [place], tel:[phone]. [id number] tel:[phone] Rita Block Supervision of Oct- Samson In Womens Ultrasound other high risk 2-201 Momo. 700 Health PA, pregnancies, 7 Medical Box third Center 1522, trimesterMaternal , Channing Hometa, care for oth 120, [place], abnormality Umair, [id number], and damage, [place], [place] unsp33 weeks [id number] tel: gestation of , [place]. tel: [phone] Rita Block Suprvsn of preg w Sep-2 Samson Referring In Womens history of 8-201 Momo. 700 Provider: Health DOLLY, pre-term labor, 7 Medical [facility] third [place] Samson R, 1522, trimesterEncounte , Ilya 700 Orestes r for suprvsn of 120, Medical [place], normal , [facility] [id number], third [email or web address] [place], Ilya 120, [place] weeks gestation [id number] Umair, tel: of , [place]. [place], tel:[phone]. [id number] tel:[phone] Rita Block Suprvsn of preg w Sep-2 Sobbing Referring In Womens history of 5-201 Bonilla. Provider: Health DOLLY, pre-term labor, 7 700 [facility] Box third trimester Medical Samson R, 1522, Center 700 [place], [facility], [facility], [facility] Center [id number], 120, Ilya 120, [place] Umair Block, [place]: [place], [address], [id number]. [place]. tel: tel: [phone] Rita Block Suprvsn of preg w Sep-1 Samson Referring In Womens history of 4-201 Momo. 700 Provider: Health DOLLY, pre-term labor, 7 Medical [facility] Box third Center Samson Ocasio, 1522, trimesterEncounte , Ilya 700 [place] for suprvsn of 120, Medical GINNA, normal , [facility] [id number], third [id number] [place], Ilya 120, [place] weeks gestation [id number] Umair, tel:+ of , [place]. [place], tel: [phone]. [id number] tel:[phone] Associates [facility] Suprvsn of preg w Sep-0 Samson Referring In Womens history of 8-201 Momo. 700 Provider: Agustin ALBERTO, pre-term labor, 7 Medical [facility] third trimester Center Samson Ocasio, 1522, , Ilya 700 [place], 120, Medical [facility] [id number], [place], [facility] 120, [place] [id number] Umair, tel: , [place]. [place], tel: [phone]. [id number] tel:[phone] Associates [facility]ir Suprvsn of preg w Sep-0 Samson Referring In Womens history of 1-201 Momo. 700 Provider: Agustin ALBERTO, pre-term labor, 7 Medical [facility] Box second [facility] Center Samson Ocasio, 1522, , Ilya 700 [place], 120, Medical [facility] [id number], [place], [facility] 120, [place] [id number] Umair, tel: , [place]. [place], tel: [phone]. [id number] tel:[phone] Associates [facility]ir Suprvsn of preg w Aug-2 Samson Referring In Womens history of 4-201 Momo. 700 Provider: Health DOLLY, pre-term labor, 7 Medical [facility] Box second tri Center Samson Ocasio 152Shelia, Dr Ilya Gianni [place], 120, Medical [facility] [id number], [place], [facility] 120, [place] [id number] Umair, tel: , . [place], tel: [phone]. [phone] tel:[phone] Associates [facility]ir Suprvsn of preg w Aug-1 Samson Referring In Womens history of 6-201 Momo. 700 Provider: Health DOLLY, pre-term labor, 7 Medical [facility] Samson Ocasio, 1522, triEncounter for , [place] [address] [place], suprvsn of normal 120, Medical [place], , second [facility] [id number], [id number] weeks [place], [facility] 120, US gestation of [id number] Umair, tel: , [place]. [place], tel:[phone]. [phone] tel:[phone] Rita Block Suprvsn of preg w Samson Referring In Womens history of 0-201 Momo. 700 Provider: Agustin ALBERTO, pre-term labor, 7 [facility] Samson Ocasio, 1522, , [address], [facility], [facility] [id number], [place], [facility] 120, [place] [id number] Umair, tel: , [place]. [place], tel:[phone]. [id number] tel:[phone] Rita Block Suprvsn of preg w Apr- Perales Referring In Womens history of 2-201 Kortney. Provider: Agustin ALBERTO, pre-term labor, [address] [place] [address] Samson Ocasio, 1522, [place] [address] [address] Orestes, [facility], [facility], [place] [id number], [facility] 120, Umiar CHACKO, tel:[phone] [place], , [place]. [id number]. tel: tel: [phone] Rita Block Mastitis w/out Sobbing In Womens abscess 0-201 Bonilla. Health DOLLY, [address] [place] [address] 1522, [facility], [facility], [place], [id number], 120, [place], [address], [place]. tel: [phone] Rita Block Suprvsn of preg w Samson Referring In Womens history of 6-201 Momo. 700 Provider: Agustin ALBERTO, pre-term labor, 7 [facility] Samson Ocasio, 1522, , [address], 120, Medical [facility] [id number], [place], Ilya 120, [place] [id number] Block, tel: , [place]. [place], tel:[phone]. [phone] tel:[phone] Associates [facility]ir Suprvsn of preg w Mar- Samson Referring In Womens history of 9-201 Momo. 700 Provider: Health PA, pre-term labor, 7 Medical Momo PO Box second Center Samson R, 1522, triSupervision of Ilya Erickson, other high risk 120, Medical [place], pregnancies, [facility] [id number], second [place], Ilya 120, US [email or web address] weeks [id number] Umair, tel: gestation of , [place]. [place], tel:[phone]. [id number] tel:[phone] Associates [facility]ir Suprvsn of preg w Mar- Samson In Womens Ultrasound history of 9-201 Momo. 700 Health PA, pre-term labor, 7 Medical PO Box second triSuprvsn Center 1522, of preg w Ilya Erickson, insufficient 120, [place], [facility], [id number], second [place], triSupervision of [id number] tel: other high risk , [place]. pregnancies, tel: second [phone] [id number] weeks gestation of Associates Umair Suprvsn of preg w Ravinder-2 Samson In Womens history of 9-201 Momo. 700 Health PA, pre-term labor, 7 Medical PO Box second triSuprvsn Center 1522, of preg w Ilya Erickson, insufficient 120, [place], antenat Umair [place], [id number], second [place], triSupervision of [id number] tel: other high risk , [place]. pregnancies, tel:[phone] second [phone] trimesterPap Smear Screening, [id number] weeks gestation of Associates Umair Sep- Krzysztof In Womens 0-201 Joyce. Health PA, 3 700 PO Box Medical 1522, Center Dr Orestes, [facility] [place], 120, [id number], Block, [place], tel:[phone] [place] [address]. tel: [phone] Family History Family Member Diagnosis Age At Onset Mother Breast Cancer No Family history of Family history not known. Patient is adopted. Mother Epilepsy Mother Diabetes Father Lung Disease Mother Hypertension Mother Kidney Disease Mother Ovarian Cancer Mother Lung Disease Immunizations Vaccine Date Status Comments Unknown Payers Payer name Insurance type Covered libertarian ID Authorization(s) [employer] [place] - Medicaid MC [id number] [facility] Standard [id number] Social History Type Description Quantity Date Captured Alcohol Use Details No Caffeine Use Details Unknown Tobacco Use Status Smoking Status Former smoker Vital Signs Date / Height Weight BMI Pulse Blood Temperature Respiratory Body Head BMI Time: Rate Pressure Rate Surface Circumference percentile Area 238.00 39.6 134/ lbs 0 mm[Hg] 9:17 kg/m AM eter (2) Chief Complaint And Reason For Visit Unknown Chief Complaint And Reason For Visit Reason For Referral Reason For Referral Unknown Plan Of Care Date Type Action Status Goal Tobacco cessation counseling completed Appointment Haritha Mcdonald BOOKED Future Order: Radiology Order Complete OB Ultrasound > 14 Weeks Ordered ([id number]) Future Order: Radiology Order Ultrasound OB Follow-up ([id number]) Ordered Date Type Problem Goal Intervention Status [...]
--- OUTSIDE RECORDS SUMMARY | 2018-03-29 22:40 | External Medical Summary | Continuity of Care Document ---
:1990 Author Organization [facility] Address [address] [place], [place] [id number] Phone Support Name Relationship Address Phone Juan Ceballos [address] [place] [address] Allergies, Adverse Reactions, Alerts Substance Reaction Severity [...] labor, 7 Medical Momo PO Box third [place] Samson R, 1522, trimesterEncounte , Ilya 700 [place] for suprvsn of 120, Medical GINNA, normal , [address] [id number], third [id number] [place], Ilya 120, [place] weeks gestation [id number] Umair, tel: of , [place]. [place], tel: [phone]. [id number] tel:[phone] Associates [facility]ir Suprvsn of preg w Sep-0 Samson Referring In Womens history of 8-201 Momo. 700 Provider: Agustin ALBERTO, pre-term labor, 7 Medical Momo PO Box third trimester Center Samson R, 1522, , Ilya 700 [place], 120, Medical GINNA, [facility] [id number], [place], Ilya 120, [place] [id number] Umair, tel: , [place]. [place] tel: [phone]. [id number] tel:[phone] Associates [facility]ir Suprvsn of preg w Sep-0 Samson Referring In Womens history of 1-201 Momo. 700 Provider: Health PA, pre-term labor, 7 Medical Momo PO Box second tri Center Samson R, 1522, , Ilya 700 [place], 120, Medical GINNA [facility] [id number], [place], [facility] 120, [id number] Umair, tel: , [place]. [place], tel: [phone]. [phone] tel:[phone] Associates [facility]ir Suprvsn of preg w Aug-2 Samson Referring In Womens history of 4-201 Momo. 700 Provider: Health PA, pre-term labor, 7 Medical Momo PO Box second tri Center Samson R, 1522, , Ilya 700 [place], 120, Medical [facility] [id number], [place], [facility] 120, [place] [id number] Umair, tel: , . [place] tel: [phone]. [phone] tel:[phone] Associates [facility]ir Suprvsn of preg w Apr-1 Samson Referring In Womens history of 6-201 Momo. 700 Provider: Health DOLLY, pre-term labor, 7 Medical Momo PO Box second tri Center Samson R, 1522, weeks gestation , Ilya Gianni [place], 120, [facility], pregnancyEncounte [facility] [id number], r for suprvsn of [place], [facility] 120, US normal , [id number] Umair, tel: second trimester , [place]. [place] tel: [phone]. [id number] tel:[phone] Associates U[facility]ir Suprvsn of preg w Aug-1 Samson Referring In Womens history of 0-201 Momo. 700 Provider: Health DOLLY, pre-term labor, 7 Medical Momo PO Box second tri Center Samson R, 1522, , Ilya 700 [place], 120, Medical [facility] [id number], [place], [facility] 120, [place] [id number] Umair, tel: , [place]. [place], tel:[phone]. [phone] tel:[phone] Rita Block Suprvsn of preg w Apr-0 Perales Referring In Womens history of 2-201 Kortney. Provider: Health DOLLY, pre-term labor, 7 700 [facility] Box second tri [facility] Samson R, 1522, Center [address], [facility], 120, Grady [id number], Block, [facility] 120, [place], Block, tel:[phone] [place], , [place]. [id number]. tel: tel: [phone] Associates U[facility]ir Mastitis w/out Mar- Sobbing In Womens abscess 0-201 Bonilla. Health PA, [address] [place] [address] 1522, Grady [place], [facility], [place], [address] [id number], 120, [place], [place], [address], [place]. tel: [phone] Rita Block Suprvsn of preg w Mar-2 Samson Referring In Womens history of 6-201 Momo. 700 Provider: Health DOLLY, pre-term labor, 7 Medical [facility] Box second tri Grady Samson R, 1522, , [place] [address] [place], [facility], [facility], Block, Grady [id number], [place], [facility] 120, [place] [id number] Umair, tel: , [place]. [place], tel: [phone]. [id number] tel:[phone] Rita Block Suprvsn of preg w Mar-1 Samson Referring In Womens history of 9-201 Momo. 700 Provider: Health DOLLY, pre-term labor, 7 Medical [facility] Box [facility] Samson R, 1522, triSupervision of Dr [place] [address] [place], other high risk 120, Medical [place], pregnancies, Block, Grady [id number], [facility], [facility] 120, [id number] weeks [id number] Umair, tel: gestation of , [place]. [place], tel: [phone]. [id number] tel:[phone] Associates [facility]ir Suprvsn of preg w Samson In Womens Ultrasound history of 9-201 Momo. 700 Health PA, pre-term labor, 7 Medical PO Box second triSuprvsn Center 1522, of preg w Ilya Erickson, insufficient 120, [place], antenat Umair [place], [id number], second tri21 [place], [place] weeks gestation [id number] tel: of , [place]. pregnancySupervis tel: ion of other high [id number] risk pregnancies, second trimester Associates [facility]ir Suprvsn of preg w Samson In Womens history of 9-201 Momo. 700 Health PA, pre-term labor, 7 Medical PO Box second triSuprvsn Center 1522, of preg w Ilya Erickson, insufficient 120, [place], antenat Umair [place], [id number], second [place], triSupervision of [id number] tel: other high risk , [place]. pregnancies, tel: second [phone] trimesterPap Smear Screening, [id number] weeks gestation of Associates Umair Krzysztof In Womens 0-201 Joyce. [facility], 3 700 PO Box Medical 1522, [address] Orestes, [facility] [place], 120, [id number], [place], [place], tel:[phone] , [place]. tel: [phone] Family History Family Member Diagnosis Age At Onset Mother Breast Cancer No Family history of Family history not known. Patient is adopted. Mother Epilepsy Mother Diabetes Father Lung Disease Mother Hypertension Mother Kidney Disease Mother Ovarian Cancer Mother Lung Disease Immunizations Vaccine Date Status Comments Unknown Payers Payer name Insurance type Covered constitution party ID Authorization(s) [employer] [place] - Medicaid MC [id number] [facility] Standard [id number] Social History Type Description Quantity Date Captured [...] Complete OB Ultrasound > 14 Weeks Ordered ([id number]) Date Type Problem Goal Intervention Status Start [...]
--- OUTSIDE RECORDS SUMMARY | 2018-03-29 22:40 | External Medical Summary | Continuity of Care Document ---
:1990 Author Organization [facility] Address [address] [place], [place] [id number] Phone Support Name Relationship Address Phone Juan Ceballos [address] [place] [address] Allergies, Adverse Reactions, Alerts Substance Reaction Severity [...] second trimester 25 weeks gestation of - Asthma Active Migraines [...] w Samson Referring In Womens history of 4-201 Momo. 700 Provider: Agustin ALBERTO, pre-term labor, 7 Medical Momo PO Box second [facility] [address], Ilya 700 [place], 120, Medical [facility] [id number], [place], [place] [address], [id number] Block, tel: , [place]. [place], tel: [phone]. [phone] tel:[phone] Rita Block Suprvsn of preg w Samson Referring In Womens history of 6-201 Momo. 700 Provider: Agustin ALBERTO, pre-term labor, 7 Medical Momo PO Box [facility] Concepcion Peters, [facility] , Ilya 700 Orestes suprvsn of normal 120, Medical [place], , second Umair [place] [id number], [id number] weeks [place], [facility] 120, [place] gestation of [id number] Umair, tel: , [place]. [place], tel: [phone]. [id number] tel:[phone] Rita Block Suprvsn of preg w Samson Referring In Womens history of 0-201 Momo. 700 Provider: Agustin ALBERTO, pre-term labor, 7 Medical Momo PO Box second [facility] Concepcion Peters, , Ilya 700 Orestes, 120, Medical [facility]mair [facility] [id number], [place], [facility] 120, [place] [id number] Umair, tel: , [place]. [place], tel:[phone]. [id number] tel:[phone] Rita Block Suprvsn of preg w Apr-0 Perales Referring In Womens history of 2-201 Kortney. Provider: Agustin ALBERTO, pre-term labor, [address] [place] [address] Samson R, 1522, [place] [address], [facility], 120, [place] [id number], [place], [facility] 120, [place], Block, tel:[phone] [place], , [place]. [id number]. tel: tel: [phone] Associates U[facility]ir Mastitis w/out Mar- Sobbing In Womens abscess 0-201 Bonilla. Health DOLLY, [address] [place] [address] 1522, [facility], [facility], [place], [place], Suite , 120, [place], [place]: [place], [address], [place]. tel: [phone] Rita Block Suprvsn of preg w Mar-2 Samson Referring In Womens history of 6-201 Momo. 700 Provider: Agustin ALBERTO, pre-term labor, 7 [facility] Samson R, 1522, , [facility] Gianni [place], 120, Medical [facility] [id number], [place], [facility] 120, [place] [id number] Umair, tel: , [place]. [place], tel:[phone]. [id number] tel:[phone] Rita Block Suprvsn of preg w Mar-1 Samson Referring In Womens history of 9-201 Momo. 700 Provider: Agustin ALBERTO, pre-term labor, 7 [facility] Samson R, 1522, triSupervision of , [facility] Gianni [place], other high risk 120, Medical [place], pregnancies, [place], [place] [id number], second [place], [facility] 120, US [id number] weeks [id number] Umair, tel: gestation of , [place]. [place], tel: [phone]. [phone] tel:[phone] Associates Umair Suprvsn of preg w Mar- Samson In Womens Ultrasound history of 9-201 Momo. 700 Health PA, pre-term labor, 7 Medical PO Box second tri21 Center 1522, weeks gestation Ilya Erickson, of 120, [place], pregnancySupervis [place], [id number], ion of other high [place], [place] risk pregnancies, tel: second , [place]. trimesterSuprvsn tel: of preg w [phone] insufficient antenat care, second tri Associates Umair Suprvsn of preg w Samson In Womens history of 9-201 Momo. 700 Health PA, pre-term labor, 7 Medical PO Box second triSuprvsn Center 1522, of preg w Ilya Erickson, insufficient 120, [place], antenat care, [place], , second [place], triSupervision of [id number] tel: other high risk , [place]. pregnancies, tel: second [phone] trimesterPap Smear Screening, [id number] weeks gestation of Associates Umair Sep- Farrahteresita In Womens 0-201 Joyce. [facility], 3 700 PO Box Medical 1522, Center Dr Orestes, Ilya [place], 120, [id number], [place], [place], tel: [phone] [address] , [place]. tel: [phone] Family History Family Member Diagnosis Age At Onset Mother Breast Cancer No Family history of Family history not known. Patient is adopted. Mother Epilepsy Mother Diabetes Father Lung Disease Mother Hypertension Mother Kidney Disease Mother Ovarian Cancer Mother Lung Disease Immunizations Vaccine Date Status Comments Unknown Payers Payer name Insurance type Covered libertarian ID Authorization(s) [employer] [place] - Medicaid MC [id number] [facility] Standard [id number] Social History Type Description Quantity Date Captured [...] Complete OB Ultrasound > 14 Weeks Ordered ([id number]) Date Type Problem Goal Intervention Status Start [...]
--- OUTSIDE RECORDS SUMMARY | 2018-03-29 22:40 | External Medical Summary | Continuity of Care Document ---
:1990 Author Organization [facility] Address [address] [place], [place] [id number] Phone Support Name Relationship Address Phone Juan Ceballos [address] [place] [address] Allergies, Adverse Reactions, Alerts Substance Reaction Severity [...] Reference Range Abnormal Flag Comments Panel Description: HEPATITIS B SURFACE ANTIGEN W/REFL CONFIRM HEPATITIS B NON-REACTIVE NON-REACTIVE N Test performed at [facility] SURFACE ANTIGEN 16:09:00 [employer] [facility] [place] [address]Qjzcasvb: JASMYN BUSBY DO,MPH Panel Description: Rubella virus IgG Ab [Units/volume] in Serum or Plasma by Immunoassay RUBELLA ANTIBODY 16:09:00 0.98 index L Index (IGG) Interpretation ----- <0.90 Not consistent with Immunity 0.90-0.99 Equivocal > or=1.00 Consistent with Immunity The presence of rubella IgG antibody suggests immunization or past or current infection withrubella virus.Test performed [place] [address]Nrxrpsmw: JASMYN BUSBY DO,MPH Panel Description: RPR (DX) W/REFL TITER AND CONFIRMATORY TESTING RPR (DX) W/REFL NON-REACTIVE NON-REACTIVE N Test performed at [facility] AND 16:09:00 [employer] [facility] [place], [place] TESTING [id number]: JASMYN BUSBY DO,MPH Panel Description: Bacteria identified in Urine by Culture CULTURE, URINE, 16:07:00 SEE NOTE CULTURE, URINE, ROUTINE ROUTINE MICRO NUMBER: [id number] TEST STATUS: FINAL SPECIMEN SOURCE: URINE, CLEAN CATCH SPECIMEN QUALITY: ADEQUATE RESULT: Mixed non-uropathogenic Gram positive felecia. Three or more organisms present, each greater than 10,000 cu/mL. May represent normal felecia contamination from external genitalia. No further testing is required.REPORT COMMENT:RTest performed at [facility] [place] [address]Ieydphkh: JASMYN BUSBY DO,MPH Advance Directives Directive Yes / No Effective Date File Name Unknown Encounters Encounter Practice Location Reason(s) Diagnoses Date Provider Care Team Description For Visit Members Rita Block Suprvsn of preg Aug-0 Perales Referring In Womens w history of 2-201 Kortney. Provider: Agustin ALBERTO, pre-term labor, 7 [address], second [facility] Samson Ocasio, [place], [place], [place] [id number], , [facility] [place] [facility] [address], [place] [address] tel: Umair, [facility] [place] 120, [address] W[address]mair, [id number] [place], , [place]. [id number]. tel: tel: [phone] Rita Block Suprvsn of preg Mar-2 Samson Referring In Womens w history of 6-201 Momo. 700 Provider: Agustin ALBERTO pre-term labor, 7 Medical Momo [address], second [facility] Samson Ocasio, [place], [place], , [facility] [place] 700 [id number], 120, Medical [facility] tel: [place], [facility] [place] 120, [id number] [facility]. [place], tel: [phone]. [id number] tel:[phone] Rita Block Suprvsn of preg Mar-1 Samson Referring In Womens w history of 9-201 Momo. 700 Provider: Agustin ALBERTO, pre-term labor, 7 Medical Momo [address], second [place] Samson Ocasio, [place], [place], [facility]vision , [facility] [place] 700 [id number], of other high 120, Medical [place] risk Umair [place] tel: pregnancies, [place], Ilya 120, [address] [facility] [id number] Umair [id number] , [place]. [place], weeks gestation tel:[phone]. of [id number] tel:[phone] Rita Block Suprvsn of preg Mar-1 Samson In Womens Ultrasound w history of 9-201 Momo. 700 Health PA, pre-term labor, 7 Medical [address], second [place], [place], triSuprvsn of Dr [facility] [place] [id number], preg w 120, [place] insufficient Umair, tel: [place], [address] second [id number] triSupervision , [place]. of other high tel: risk [phone] pregnancies, second [id number] weeks gestation of Associates U[facility]ir Suprvsn of preg Samson In Womens w history of 9-201 Momo. 700 Health PA, pre-term labor, 7 Medical [address], second Center [place], [place], triSuprvsn of Ilya Erickson [id number], preg w 120, [place] insufficient Block, tel: [place], [address] [facility] [id number] triSupervision , [place]. of other high tel: risk [phone] pregnancies, second trimesterPap Smear Screening, [id number] weeks gestation of Associates Umair Krzysztof In Womens 0-201 Joyce. Health PA, 3 700 [address], [place], [place], [place] [id number], Ilya Erickson [place] 120, tel: Umair, [address] [place], [id number] , [place]. tel: [phone] Family History Family Member Diagnosis Age At Onset Mother Breast Cancer No Family history of Family history not known. Patient is adopted. Mother Epilepsy Mother Diabetes Father Lung Disease Mother Hypertension Mother Kidney Disease Mother Ovarian Cancer Mother Lung Disease Immunizations Vaccine Date Status Comments Unknown Payers Payer name Insurance type Covered republican ID Authorization(s) [employer] [place] - Medicaid MC [id number] [facility] Standard [id number] Social History Type Description Quantity Date Captured Alcohol Use Details No Caffeine Use Details Unknown Tobacco Use Status Smoking Status Former smoker Vital Signs Date / Height Weight BMI Pulse Blood Temperature Respiratory Body Head BMI Time: Rate Pressure Rate Surface Circumference percentile Area 232.20 38.6 lbs 4 mm[Hg] 3:38 kg/m PM eter (2) Chief Complaint And Reason For Visit Unknown Chief Complaint And Reason For Visit Reason For Referral Reason For Referral Unknown Plan Of Care Date Type Action Status Goal Tobacco cessation counseling completed Appointment Haritah Mcdonald BOOKED Future Order: Radiology Order Complete OB Ultrasound > 14 Weeks Ordered ([id number]) Date Type Problem Goal Intervention Status Start [...]
--- OUTSIDE RECORDS SUMMARY | 2018-03-29 22:40 | External Medical Summary | Continuity of Care Document ---
:1990 Author Organization [facility] Address [address] [place], [place] [id number] Phone Support Name Relationship Address Phone Juan Ceballos [address] [place] [address] Allergies, Adverse Reactions, Alerts Substance Reaction Severity [...] Effective Dates (start - stop) Clinical Status Supervision of other high risk - pregnancies, third trimester Maternal care for oth - abnormality and damage, unsp 33 weeks gestation of - Suprvsn of [...] of pre-term - labor, third trimester Encounter For Screening For - Streptococcus B 36 weeks gestation of - Asthma Active Migraines Active Procedures Procedure Date Ultrasnd preg uterus, flwup/repeat Results Test Name Date and Time Measure [...] Center Samson R, 1522, weeks gestation , [facility] 700 [place], of 120, Medical [facility] [id number], [place], [facility] 120, [place] [id number] Umair, tel: , [place]. [place], tel: [phone]. [id number] tel:[phone] Associates [facility] Suprvsn of preg w Oct-2 Samson Referring In Womens history of 6-201 Momo. 700 Provider: Agustin ALBERTO, pre-term labor, 7 Medical Momo PO Box third [id number] Center Samson R, 1522, weeks gestation Dr [facility] Gianni [place], of 120, Medical [facility] [id number], [place], [facility] 120, [place] [id number] Umair, tel: , [place]. [place], tel: [phone]. [phone] tel:[phone] Rita Block Suprvsn of preg w Oct-2 Balbir Referring In Womens history of 0-201 Rufina. Provider: Agustin ALBERTO, pre-term labor, 7 700 Momo PO Box third trimester Medical Samson R, 1522, Center [address] Dr Orestes, [facility], 120, [place] [id number], Umair, [facility] 120, [place] Umair CHACKO, tel: [phone] [place], , [place]. [id number]. tel: tel: [phone] Rita Block Suprvsn of preg w Oct-1 Samson Referring In Womens history of 2-201 Momo. 700 Provider: Agustin ALBERTO, pre-term labor, 7 Medical Momo PO Box third Center Samson R, 1522, trimesterEncounte , [facility] 700 [place], r for suprvsn of 120, Medical [place], normal , [facility] [id number], third [id number] [place], [facility] 120, [place] weeks gestation [id number] Umair, tel: of , [place]. [place], tel: [phone]. [id number] tel:[phone] Rita Block Supervision of Oct- Samson In Womens Ultrasound other high risk 2-201 Momo. 700 Health PA, pregnancies, 7 Medical PO Box third Center 1522, trimesterMaternal , [facility], care for oth 120, [place], abnormality Umair, [id number], and damage, [place], [place] unsp33 weeks [id number] tel: gestation of , [place]. tel: [phone] Associates U[facility]ir Suprvsn of preg w Sep-2 Samson Referring In Womens history of 8-201 Momo. 700 Provider: Health DOLLY, pre-term labor, 7 Medical Momo PO Box third Center Samson R, 1522, trimesterEncwhitley Erickson, Ilya 700 [place], r for suprvsn of 120, Medical [place], normal , [address] [id number], third [id number] OR, Ilya 120, [place] weeks gestation [id number] Umair, tel: of , [place]. [place], tel:[phone]. [id number] tel:[phone] Rita Block Suprvsn of preg w Sep-2 Sobbing Referring In Womens history of 5-201 Bonilla. Provider: Health DOLLY, pre-term labor, 7 700 Momo PO Box third trimester Medical Samson R, 1522, Center 700 [place], [facility], [facility], [facility] Center [id number], 120, Ilya 120, [place] Umair Block, tel: [place], [address], [id number]. [place]. tel: tel: [phone] Associates [facility] Suprvsn of preg w Sep-1 Samson Referring In Womens history of 4-201 Momo. 700 Provider: Health DOLLY, pre-term labor, 7 Medical Momo PO Box third Center Samson R, 1522, trimesterEncwhitley Erickson, Ilya 700 [place], r for suprvsn of 120, Medical [place], normal , Abby [address] [id number], third [id number] OR, Ilya 120, [place] weeks gestation [id number] Umair, tel: of , [place]. [place], tel: [phone]. [id number] tel:[phone] Associates [facility] Suprvsn of preg w Sep-0 Samson Referring In Womens history of 8-201 Momo. 700 Provider: Health DOLLY, pre-term labor, 7 Medical Momo PO Box third trimester Center Samson Ocasio 1522, , Ilya 700 [place], 120, Medical [facility] [id number], [place], [facility] 120, [place] [id number] Umair, tel: , [place]. [place], tel: [phone]. [id number] tel:[phone] Associates [facility] Suprvsn of preg w Sep-0 Samson Referring In Womens history of 1-201 Momo. 700 Provider: Agustin ALBERTO, pre-term labor, 7 Medical Momo PO Box [facility] Samson Ocasio 1522, , Ilya 700 [place], 120, Medical [facility] [id number], [place], [facility] 120, [place] [id number] Umair, tel: , [place]. [place], tel: [phone]. [id number] tel:[phone] Associates [facility] Suprvsn of preg w Aug-2 Samson Referring In Womens history of 4-201 Momo. 700 Provider: Agustin ALBERTO, pre-term labor, 7 Medical Momo PO Box [facility] Center Samson Ocasio 1522, , Ilya 700 [place], 120, Medical [facility] [id number], [place], [facility] 120, [place] [id number] Umair, tel: , [place]. [place], tel: [phone]. [phone] tel:[phone] Associates [facility]ir Suprvsn of preg w Aug-1 Samson Referring In Womens history of 6-201 Momo. 700 Provider: Health DOLLY, pre-term labor, 7 Medical Momo PO Box [facility] Center Samson Ocasio, 1522, [facility] Ilya 700 [place], suprvsn of normal 120, Medical [place], , second [facility] [id number], [id number] weeks [facility] 120, [place] gestation of [id number] Umair, tel: , [place]. [place], tel: [phone]. [phone] tel:[phone] Rita Block Suprvsn of preg w Apr-1 Samson Referring In Womens history of 0-201 Momo. 700 Provider: Agustin ALBERTO, pre-term labor, 7 [facility] Samson Ocasio 1522, , [address], [facility], [facility] [id number], [place], [place] [address], [id number] Umair, tel: , [place]. [place], tel: [phone]. [id number] tel:[phone] Rita Block Suprvsn of preg w Apr-0 Perales Referring In Womens history of 2-201 Kortney. Provider: Agustin ALBERTO, pre-term labor, [address] [place] [address] Samson Ocasio 1522, [place] [address], [place] [address], [place] [id number], [place] [address], Umair CHACKO, tel:[phone] [facility] , [place]. [id number]. tel: tel: [phone] Rita Block Mastitis w/out Mar-3 Sobbing In Womens abscess 0-201 Bonilla. Health DOLLY, [address] [place], [place] [address], [place], [place], [id number], [facility], Umair, tel: [facility] [address], [place]. tel: [phone] Rita Block Suprvsn of preg w Mar-2 Samson Referring In Womens history of 6-201 Momo. 700 Provider: Agustin ALBERTO, pre-term labor, 7 [facility] Samson Ocasio 1522, , [place] [address] [place], 120, Medical Umair CHACKO, [place] [id number], [place] [address], [id number] Umair, tel: , . [place], tel: [phone]. [phone] tel:[phone] Rita Block Suprvsn of preg w Samson Referring In Womens history of 9-201 Momo. 700 Provider: Health PA, pre-term labor, 7 Medical Momo PO Box second Center Samson R, 1522, triSupervision of Ilya Erickson, other high risk 120, Medical [place], pregnancies, Block, [place] [id number], second [place], Ilya 120, [place] [id number] weeks [id number] Block, tel:+ gestation of , [place]. [place], tel: [phone]. [id number] tel:[phone] Associates [facility]ir Suprvsn of preg w Mar- Samson In Womens Ultrasound history of 9-201 Momo. 700 Health PA, pre-term labor, 7 Medical PO Box second triSuprvsn Center 1522, of preg w Ilya Erickson, insufficient 120, [place], [facility], [id number], second [place], triSupervision of [id number] tel: other high risk , [place]. pregnancies, tel: second [phone] [id number] weeks gestation of Associates Umair Suprvsn of preg w Ravinder- Samson In Womens history of 9-201 Momo. 700 Health PA, pre-term labor, 7 Medical PO Box second triSuprvsn Center 1522, of preg w Ilya Erickson, insufficient 120, [place], [facility] healthcare[facility], [id number], second [place], triSupervision of [id number] tel: other high risk , [place]. pregnancies, tel: second [phone] trimesterPap Smear Screening, [id number] weeks gestation of Associates Umair Krzysztof In Womens 0-201 Joyce. Health PA, 3 700 PO Box Medical 1522, Center Dr Orestes [facility] [place], 120, [id number], Block, [facility], tel:[phone] , [place]. tel: [phone] Family History Family Member Diagnosis Age At Onset Mother Breast Cancer No Family history of Family history not known. Patient is adopted. Mother Epilepsy Mother Diabetes Father Lung Disease Mother Hypertension Mother Kidney Disease Mother Ovarian Cancer Mother Lung Disease Immunizations Vaccine Date Status Comments Tdap completed Source: New Immunization Record Payers Payer name Insurance type Covered republican ID Authorization(s) [employer] [place] - Medicaid MC [id number] Standard [id number] [employer] [place] - Medicaid MC [id number] Social History Type Description Quantity Date Captured [...] Haritha Mcdonald BOOKED Future Order: Radiology Order Ultrasound OB Follow-up ([id number]) Ordered Future Order: Radiology Order Complete OB Ultrasound > 14 Weeks Ordered ([id number]) Date Type Problem Goal Intervention Status Start [...]
--- OUTSIDE RECORDS SUMMARY | 2018-03-29 22:40 | External Medical Summary | Continuity of Care Document ---
:1990 Author Organization [facility] Address [address] [place], [place] [id number] Phone Support Name Relationship Address Phone Juan Ceballos [address] [place] [address] Allergies, Adverse Reactions, Alerts Substance Reaction Severity Status No Known Drug Allergies Unknown Active Medications Medication Instructions Dosage Effective Dates Status Comments (start - stop) Mirena 20 mcg/24 hr (5 - - Active years) intrauterine device ProAir HFA 90 inhale 1 puff by - Active mcg/actuation aerosol inhalation route inhaler every 4 - 6 hours as needed Problems Condition Effective Dates (start - stop) Clinical Status Encounter for insertion of intrauterine contraceptive device Encounter for test, result - negative Follow-Up, Routine Mastitis w/out abscess - Pap Smear Screening, Cervix - Encounter For Screening For - Streptococcus B Asthma Active Migraines Active Active Procedures Procedure Date Urine test Insert intrauterine device (IUD) Levonorgestrel IUD 52 Mg 5 Year Duration Visit No-Charge Results Test Name Date and Time Measure Units Reference Range Abnormal Flag Comments Unknown Advance Directives Directive Yes / No Effective Date File Name Unknown Encounters Encounter Practice Location Reason(s) Diagnoses Date Provider Care Team Description For Visit Members Associates Umair Encounter for Samson In [facility] examination insertion of 6-201 Momo. [facility] [employer] DOLLY, (chief intrauterine 7 Medical PO Box complaint) contraceptive Center 1522, deviceEncounter , Ilya [place], for 120, [place], test, result Block, [id number], negativePostpartu [place], [place] m Follow-Up, [id number] tel:[phone] Routine , [place]. tel:[phone] Rita Block Encounter For Nov-0 Samson Referring In Womens 2-201 [place]. 700 Provider: Health DOLLY, Screening For 7 Medical [facility] Box Streptococcus B Center Samson Ocasio [address] She[address], [place] [address] [place], 120, Medical [facility] [id number], [place], [facility] 120, [place] [id number] Umair, tel: , [place]. [place], tel: [phone]. [id number] tel:[phone] Rita Block Sep-2 Samson Referring In Womens 8-201 [place]. 700 Provider: Health DOLLY, 7 [facility] [address], [address], 120, Medical Umair [facility] [id number], [place], [facility] 120, [place] [id number] Umair, tel: , [place]. [place], tel: [phone]. [id number] tel:[phone] Rita Block Mastitis w/out Mar- Sobbing In Womens abscess 0-201 Bonilla. Health PA, [address] [place] [address] 1522, [place] [facility], [place], Suite , [facility][note 3], Umair, tel: [place], 114, [place]. tel: [phone] Rita Block Pap Smear Ravinder-2 Samson In Womens Screening, Cervix 9-201 [place]. 700 Health PA, [address] [facility] [address] Concepcion, [facility] Orestes, [facility][note 3], [place], Umair, [id number], [place], [id number] tel: , [place]. tel: [phone] Rita Block Renny- [place] In Womens 0-201 Joyce. Health PA, 3 700 PO Box [facility] 1522, [place] [address] Orestes, [facility], [facility][note 3], [id number], Block, [facility], tel:[phone] , [place]. tel: [phone] Family History Family Member Diagnosis Age At Onset Mother Breast Cancer No Family history of Family history not known. Patient is adopted. Mother Epilepsy Mother Diabetes Father Lung Disease Mother Hypertension Mother Kidney Disease Mother Ovarian Cancer Mother Lung Disease Immunizations Vaccine Date Status Comments Tdap completed Source: New Immunization Record Payers Payer name Insurance type Covered alliance party ID Authorization(s) [employer] [place] - Medicaid MC [id number] Standard [id number] [employer] [place] - Medicaid MC [id number] Social History Type Description Quantity Date Captured Alcohol Use Details Unknown Caffeine Use Details Unknown Tobacco Use Status Smoking Status Former smoker Vital Signs Date / Height Weight BMI Pulse Blood Temperature Respiratory Body Head BMI Time: Rate Pressure Rate Surface Circumference percentile Area 226.10 78 109/ lbs /min mm[Hg] 10:17 AM Chief Complaint And Reason For Visit Most recent encounter only, dated '09/07/2017 10:00'. examination (chief complaint). Description: On 07/25/2017 she had a of a 37 week 6 day female (Xiang) weighing 8# 5 oz. (3290g) at [facility] by Kortney Perales MD. Apgars: 8/9. She had no delivery complications. Her was complicated by H/o delivery x2, Bipolar Disorder and Late Care. Patient denies breast pain, constipation, depression, diarrhea, dysuria and edema. Her last pap smear was WNL on 03/11/2017. Reason For Referral Reason For Referral Unknown Plan Of Care Date Type Action Status Goal Tobacco cessation counseling completed Appointment Haritha Mcdonald BOOKED Date Type Problem Goal Intervention Status Start Date Unknown. History Of Present Illness Encounter Date Complaint History Of Present Illness examination On 07/25/2017 she had a of a 37 week 6 day female (Xiang) weighing 8# 5 oz. (3290g) at [facility] by Kortney Perales MD. Apgars: 8/9. She had no delivery complications. Her was complicated by H/o delivery x2, Bipolar Disorder and Late Care. Patient denies breast pain, constipation, depression, diarrhea, dysuria and edema. Her last pap smear was WNL on 03/11/2017. Functional Status Encounter Date Functional Assessment Cognitive Assessment Unknown Medications Administered Medication Instructions Dosage Effective Dates (start - stop) Status Comments Drug Treatment Unknown Instructions Date Instruction Additional Information Unknown
--- OUTSIDE RECORDS SUMMARY | 2018-03-29 22:40 | External Medical Summary | Continuity of Care Document ---
:1990 Author Organization [facility] Address [address] [place], [place] [id number] Phone Support Name Relationship Address Phone Juan Ceballos [address] [place] [address] Allergies, Adverse Reactions, Alerts Substance Reaction Severity [...] Asthma Active Migraines Active Procedures Procedure Date Ultrasound exam of preg uterus, complete Results Test Name Date and Time Measure Units Reference Range Abnormal Flag Comments Unknown Advance Directives Directive Yes / No Effective Date File Name Unknown Encounters Encounter Practice Location Reason(s) Diagnoses Date Provider Care Team Description For Visit Members Rita Seguran of preg Apr- Perales Referring In Womens w history of 2-201 [place]. Provider: Agustin ALBERTO, pre-term labor, 7 700 [address], second [facility]ly [facility] Samson Ocasio [place], [place], [place] 700 [id number], , [facility] 120, [address] [address] tel: Umair, [facility] 120, [address] [place], Umair, [id number] [place], , [place]. [id number]. tel: tel: [phone] Rita Block Suprvsn of preg Samson Referring In Womens w history of 6-201 Momo. 700 Provider: Agustin ALBERTO, pre-term labor, 7 Medical Momo [address], second [facility] [place], , [facility] 700 [id number], 120, Medical [place] [facility] tel: [place], [facility] 120, [id number] [facility]. [place], tel:[phone]. [phone] tel:[phone] Rita Block Suprchrisn of preg Samson Referring In Womens w history of 9-201 [place]o. 700 Provider: Agustin ALBERTO, pre-term labor, 7 Medical Momo [address], second [place] Samson Ocasio [place], [place], triSupervision , [facility] 700 [id number], of other high 120, Medical [place] risk [facility] tel:21 pregnancies, [place], Ilya 120, [address] second [id number] U[place] [address] , . [place], weeks gestation tel:[phone]. of [id number] tel:[phone] Rita Block Suprvsn of preg Samson In Womens Ultrasound w history of 9-201 [place]. 700 Agustin ALBERTO, pre-term labor, 7 Medical [address], second [place], [place], triSuprvsn of Ilya Erickson [id number], preg w 120, [place] insufficient Block, tel: [place], [address] second [id number] triSupervision , [place]. of other high tel: risk [phone] pregnancies, second [id number] weeks gestation of Associates Umair Suprvsn of preg Ravinder-2 Samson In Womens w history of 9-201 Momo. 700 [facility], pre-term labor, 7 Medical [address], [facility] [place], triSuprvsn of Ilya Erickson [id number], preg w 120, [place] insufficient [place], tel: [place], [address] second [id number] triSupervision , [place]. of other high tel: risk [phone] pregnancies, second trimesterPap Smear Screening, Jbreas66 weeks gestation of Associates Umair Renny- Farraheman In Womens 0-201 Joyce. [facility], 3 700 [address], [place], [place], [place] [id number], Dr [facility] US 120, tel: Umair, [address] [place], [id number] , [place]. tel: [phone] Family History Family Member Diagnosis Age At Onset Mother Breast Cancer No Family history of Family history not known. Patient is adopted. Mother Epilepsy Mother Diabetes Father Lung Disease Mother Hypertension Mother Kidney Disease Mother Ovarian Cancer Mother Lung Disease Immunizations Vaccine Date Status Comments Unknown Payers Payer name Insurance type Covered libertarian ID Authorization(s) [employer] Plan Of [place] - Medicaid MC [id number] [facility] Standard [id number] Social History Type Description Quantity Date Captured [...] Complete OB Ultrasound > 14 Weeks Ordered ([id number]) Date Type Problem Goal Intervention Status Start [...]
--- OUTSIDE RECORDS SUMMARY | 2018-03-29 22:40 | External Medical Summary | Continuity of Care Document ---
:1992 Author Organization [facility] Address [address] [place], [place] [address] Phone Support Name Relationship Address Phone Juan Ceballos [address] [place] [address] Allergies, Adverse Reactions, Alerts Substance Reaction Severity [...] other high risk - pregnancies, second trimester Mastitis w/out abscess - Suprvsn of preg [...] Members Rita Block Suprvsn of preg w May- Samson Referring In Womens history of 1-201 Momo. 700 Provider: Agustin ALBERTO, pre-term labor, 7 Medical Momo Box [facility] Samson Ocasio 1522, , Ilya 700 [place], 120, Medical [facility] [id number], [place], [facility] 120, [id number] Umair, tel: , . [place], tel: [phone]. [phone] tel:[phone] Associates Umair Suprvsn of preg w Apr-2 Samson Referring In Womens history of 4-201 Momo. 700 Provider: Agustin ALBERTO, pre-term labor, 7 Medical Momo PO Box [facility] Center Samson Ocasio 1522, , Ilya 700 [place], 120, Medical [facility] [id number], [place], [facility] 120, [place] [id number] Umair, tel: , [facility], tel: [phone]. [phone] tel:[phone] Associates Umair Suprvsn of preg w Apr-1 Samson Referring In Womens history of 6-201 Momo. 700 Provider: Agustin ALBERTO, pre-term labor, 7 Medical Momo PO Box [facility] Samson R, 1522, [facility] for , [place] [address] Orestes, suprvsn of normal 120, Medical [place], , second [facility] [id number], [id number] weeks [place], [facility] 120, [place] gestation of [id number] Umair, tel: , [place]. [place], tel: [phone]. [phone] tel:[phone] Rita Block Suprvsn of preg w Apr-1 Samson Referring In Womens history of 0-201 Momo. 700 Provider: Health DOLLY, pre-term labor, 7 Medical [facility] Samson R, 1522, , [facility] 700 [place], [facility], [facility], [facility] [id number], [place], [facility] 120, [place] [id number] Umair, tel: , [place]. [place], tel: [phone]. [phone] tel:[phone] Rita Block Suprvsn of preg w Apr-0 Perales Referring In Womens history of 2-201 [place]ortney. Provider: Agustin ALBERTO, pre-term labor, [address] [place] [address] Samson R, 1522, [address], [facility], [facility], [place] [id number], [facility] 120, Umair CHACKO, tel:[phone] [place], , [place]. [id number]. tel: tel: [phone] Rita Block Mastitis w/out Mar-3 Sobbing In Womens abscess 0-201 [place]. Health DOLLY, [address] [place] [address] 1522, [facility], [place], [place], [address] [id number], 120, [place], [place]: [place], [address], [place]. tel: [phone] Rita Block Suprvsn of preg w Mar-2 Samson Referring In Womens history of 6-201 Momo. 700 Provider: Agustin ALBERTO, pre-term labor, 7 [facility] Center Samson R, 1522, , [facility] 700 [place], 120, Medical U[facility]ir [facility] [id number], [place], [facility] 120, [place] [id number] Umair, tel: , [place]. [place], tel: [phone]. [id number] tel:[phone] Rita Block Suprvsn of preg w Mar- Samson Referring In Womens history of - Momo. 700 Provider: Health PA, pre-term labor, 7 Medical Momo PO Box second tri21 Center Samson R, 1522, weeks gestation Ilya Erickson, of 120, Medical [place], pregnancySupervis Umair [place] , ion of other high [place], Ilya 120, [place] risk pregnancies, [id number] Umair, tel: second trimester , [place]. [place], tel: [phone]. [phone] tel:[phone] Rita Block Suprvsn of preg w Mar- Samson In Womens Ultrasound insufficient 9- Momo. 700 Health PA, antenat care, 7 Medical PO Box second triSuprvsn Center 1522, of preg w history Ilya Erickson, of pre-term 120, [place], labor, second Umair, [id number], tri21 weeks [place], [place] gestation of [id number] tel: pregnancySupervis , [place]. ion of other high tel: risk pregnancies, [id number] second trimester Associates Umair Suprvsn of preg w Ravinder-2 Samson In Womens history of 9-201 Momo. 700 Health PA, pre-term labor, 7 Medical PO Box second triSuprvsn Center 1522, of preg w Ilya Erickson, insufficient 120, [place], [facility], [id number], second [place], [place] triSupervision of [id number] tel: other high risk , [place]. pregnancies, tel: second [phone] trimesterPap Smear Screening, Tuetfq16 weeks gestation of Associates Umair Krzysztof In Womens 0-201 Joyce. Health PA, 3 700 PO Box Medical 1522, [address] [place], 120, [id number], [place], [place], tel:[phone] , [place]. tel: [phone] Family History Family Member Diagnosis Age At Onset Mother Breast Cancer No Family history of Family history not known. Patient is adopted. Mother Epilepsy Mother Diabetes Father Lung Disease Mother Hypertension Mother Kidney Disease Mother Ovarian Cancer Mother Lung Disease Immunizations Vaccine Date Status Comments Unknown Payers Payer name Insurance type Covered constitution party ID Authorization(s) [employer] Plan Of [place] - Medicaid MC [id number] Standard [id number] Social History Type Description Quantity Date Captured Alcohol Use Details No Caffeine Use Details Unknown Tobacco Use Status Smoking Status Former smoker Vital Signs Date / Height Weight BMI Pulse Blood Temperature Respiratory Body Head BMI Time: Rate Pressure Rate Surface Circumference percentile Area 234.80 39.0 / lbs 7 mm[Hg] 2:18 kg/m PM eter (2) Chief Complaint And Reason For Visit Unknown Chief Complaint And Reason For Visit Reason For Referral Reason For Referral Unknown Plan Of Care Date Type Action Status Goal Tobacco cessation counseling completed Appointment Haritha Mcdonald BOOKED Future Order: Radiology Order Complete OB Ultrasound > 14 Weeks Ordered ([id number]) Date Type Problem Goal Intervention Status Start [...]
--- OUTSIDE RECORDS SUMMARY | 2018-03-29 22:40 | External Medical Summary | Continuity of Care Document ---
:1992 Author Organization [facility] Address [address] [place], [place] [id number] Phone Support Name Relationship Address Phone Juan Ceballos [address] [place] [address] Allergies, Adverse Reactions, Alerts Substance Reaction Severity Status No Known Drug Allergies Unknown Active Medications Medication Instructions Dosage Effective Dates Status Comments (start - stop) Mirena 20 mcg/24 hr ( - - Active years) intrauterine device ProAir HFA 90 inhale 1 puff by - Active mcg/actuation aerosol inhalation route inhaler every 4 - 6 hours as needed Problems Condition Effective Dates (start - stop) Clinical Status Encntr for f/u exam aft trtmt for cond oth than malig neoplm Encounter for routine checking of intrauterine contracep dev Encounter for insertion of intrauterine contraceptive device Encounter for test, result - negative Follow-Up, Routine Mastitis w/out abscess - Pap Smear Screening, Cervix - Encounter For Screening For - Streptococcus B Asthma Active Migraines Active Active Procedures Procedure Date Postop followup visit Results Test Name Date and Time Measure Units Reference Range Abnormal Flag Comments Unknown Advance Directives Directive Yes / No Effective Date File Name Unknown Encounters Encounter Practice Location Reason(s) Diagnoses Date Provider Care Team Description For Visit Members Rita Block post-operati Encntr for f/u [place] In [facility] ve exam aft trtmt 5 Fariba. [facility], examination for cond oth than 8 700 PO Box (chief malig Medical 1522, complaint) [facility], for routine Ilya Erickson, checking of 120, , intrauterine [place], [place] contracep dev [place], tel:[phone] , [place]. tel: [phone] Rita Block Encounter for Dec-2 Samson In Womens insertion of 6-201 [place]. 700 Health DOLLY, intrauterine 7 Medical PO Box contraceptive Center 1522, deviceEncounter , Ilya [place], for 120, [place], test, result Umair, [id number], negativePostpartu [place], [place] m Follow-Up, tel: Routine , [place]. tel: [phone] Rita Block Encounter For Nov-0 Samson Referring In Womens 2-201 [place]. 700 Provider: Agustin ALBERTO, Screening For 7 Medical [place] PO Box Streptococcus B Center Samson Ocasio 152Shelia, , [address], 120, Medical [place], [facility] [id number], [place], Ilya 120, [place] [id number] Umair, tel: , [place]. [place], tel: [phone]. [phone] tel:[phone] Rita Block Sep-2 Samson Referring In Womens 8-201 [place]. 700 Provider: Agustin ALBERTO, 7 Medical [place] PO Box [place] Concepcion Peters, Dr [facility] Gianni [place], [facility], Medical [place], [facility] [id number], [place], [facility] 120, [place] [id number] Umair, tel: , [place]. [place], tel: [phone]. [phone] tel:[phone] Rita Block Mastitis w/out Mar-3 Sobbing In Womens abscess 0-201 [place]. Health DOLLY, 7 700 PO Box [facility] 1522, [place], [place], [address] [id number], 120, [place], [place]: [place], [address], [place]. tel: [phone] Rita Block Pap Smear Ravinder-2 Samson In Womens Screening, Cervix 9-201 [place]. 700 Health DOLLY, 7 Medical PO Box Center 1522, Ilya Erickson, [facility], [place], Umair, [id number], [place], [place] [id number] tel:+[phone] , [place]. tel: [phone] Rita Lawson-1 Krzysztof In Womens 0-201 Joyce. [employer] [place], 3 700 PO Box Medical 1522, [place] [address] Orestes, [facility], 120, [id number], [place], [place], tel:-[phone] [address] , [place]. tel: [phone] Family History Family Member Diagnosis Age At Onset Mother Breast Cancer No Family history of Family history not known. Patient is adopted. Mother Epilepsy Mother Diabetes Father Lung Disease Mother Hypertension Mother Kidney Disease Mother Ovarian Cancer Mother Lung Disease Immunizations Vaccine Date Status Comments Tdap completed Source: New Immunization Record Payers Payer name Insurance type Covered democrat ID Authorization(s) [employer] Plan [place] - Medicaid MC [id number] Standard [id number] [place] - Medicaid MC [id number] Social History Type Description Quantity Date Captured Alcohol Use Details Unknown Caffeine Use Details Unknown Tobacco Use Status Smoking Status Former smoker Vital Signs Date / Height Weight BMI Pulse Blood Temperature Respiratory Body Head BMI Time: Rate Pressure Rate Surface Circumference percentile Area 234.40 87 122/90 98.30 lbs /min mm[Hg] 2:50 PM Chief Complaint And Reason For Visit Most recent encounter only, dated '09/27/2017 14:40'. post-operative examination (chief complaint). Description: Mirena IUD inserted 08/28/[address] Davies. Pt still having irregular bleeding, but no complaints. Baby doing well. Reason For Referral Reason For Referral Unknown Plan Of Care Date Type Action Status Goal Tobacco cessation counseling completed Date Type Problem Goal Intervention Status Start Date Unknown. History Of Present Illness Encounter Date Complaint History Of Present Illness post-operative examination Mirena IUD inserted 08/28/[address] Davies. Pt still having irregular bleeding, but no complaints. Baby doing well. Functional Status Encounter Date Functional Assessment Cognitive Assessment Unknown Medications Administered Medication Instructions Dosage Effective Dates (start - stop) Status Comments Drug Treatment Unknown Instructions Date Instruction Additional Information Unknown
--- OUTSIDE RECORDS SUMMARY | 2018-03-29 22:41 | External Medical Summary | Continuity of Care Document ---
:1992 Author Organization [facility] Address [address] [place], [place] [id number] Phone Support Name Relationship Address Phone Juan Ceballos [address] [place] [address] Allergies, Adverse Reactions, Alerts Substance Reaction Severity [...] aft trtmt for cond oth than malig neopl Encounter for routine checking of intrauterine contracep [...] Team Description For Visit Members Associates Umair Encntr for f/u [place] In Women exam aft trtmt 5 Fariba. [place], for cond oth than [address] [facility] 1522, neoplmEncountUT [facility], for routine Ilya Erickson, checking of 120, , intrauterine [place], [place] contracep dev [place], tel:[phone] , [place]. tel: [phone] Rita Block Encounter for Dec-2 Samson In Womens examination insertion of 6-201 [place]. 700 Agustin ALBERTO, (chief intrauterine 7 Medical PO Box complaint) contraceptive Center 1522, deviceEncounter , Ilya [place], for 120, [place], test, result [place], , negativePostpartu [place], m Follow-Up, tel: Routine , [place]. tel: [phone] Rita Block Encounter For Nov-0 Samson Referring In Womens 2-201 [place]. 700 Provider: Augstin ALBERTO, Screening For 7 Medical [place] PO Box Streptococcus B [place] Samson Ocasio, 1522, Ilya Erickson, 120, Medical [facility] , [place], Ilya 120, [place] [id number] Umair, tel: , [place]. [place], tel: [phone]. [id number] tel:[phone] Rita Block Sep-2 Samson Referring In Womens 8-201 [place]. 700 Provider: Agustin ALBERTO, [address] [place] [address] Box [place] Samson Ocasio, 1522, Ilya Erickson, [facility], Medical [place], [facility] [id number], [place], Ilya 120, [place] [id number] Umair, tel: , . [place], tel: [phone]. [id number] tel:[phone] Rita Block Mastitis w/out Mar- Sobbing In Womens abscess 0-201 [place]. Health DOLLY, [address] [place], [place] [address], [facility], [place], Suite , 120, [place], [place]: [place], [address], [place]. tel: [phone] Rita Block Pap Smear Ravinder-2 Samson In Womens Screening, Cervix 9-201 [place]. 700 Agustin ALBERTO, 7 [facility] Box [place] 1522, Ilya Erickson, 120, [place], [place]mair, [id number], [place], [id number] tel: , [place]. tel: [phone] Associates Umair Krzysztof In Womens 0-201 Joyce. [facility], 3 700 PO [facility] 1522, [place] [address] Orestes, Ilya [place], 120, [id number], [place], [place], tel: [phone] , [place]. tel: [phone] Family History Family Member Diagnosis Age At [...] [place] Plan [place] - Medicaid [place] [id number] Standard [id number] [place] - Medicaid MC [id number] Social History Type Description Quantity Date Captured Alcohol Use Details Unknown Caffeine Use Details Unknown Tobacco Use Status Smoking Status Former smoker Vital Signs Date / Height Weight BMI Pulse Blood Temperature Respiratory Body Head BMI Time: Rate Pressure Rate Surface Circumference percentile Area 226.10 78 109/ lbs /min mm[Hg] 10:17 AM Chief Complaint And Reason For Visit Unknown [...] (Xiang) weighing 8# 5 oz. (3290g) [facility] by Kortney Perales MD. Apgars: 8/9. She [...]
--- OUTSIDE RECORDS SUMMARY | 2018-03-29 22:41 | External Medical Summary | Continuity of Care Document ---
:1992 Author Organization [facility] Address [address] [place], [place] [phone] Phone Support Name Relationship Address Phone Juan Ceballos [address] [place] [address] Allergies, Adverse Reactions, Alerts Substance Reaction Severity [...] Block post-operati Encntr for f/u [place] In [facility] ve exam aft trtmt 5 Fariba. [facility], examination for cond oth than 8 700 PO Box (chief malig Medical 1522, complaint) [facility], for routine Ilya Erickson, checking of 120, , intrauterine [place], [place] contracep dev [place], tel:[phone] , [place]. tel: [phone] Rita Block Encounter for Dec-2 Samson In Womens insertion of 6-201 [facility]. 700 Health DOLLY, intrauterine 7 Medical PO Box contraceptive Center 1522, deviceEncounter , Ilya [place], for 120, [place], test, result Umair, [id number], negativePostpartu [place], [place] m Follow-Up, tel: Routine , [place]. tel: [phone] Rita Block Encounter For Nov-0 Samson Referring In Womens 2-201 [facility]. 700 Provider: Agustin ALBERTO, Screening For 7 Medical [facility] PO Box Streptococcus B Center Samson Ocasio 152Shelia, , [address], 120, Medical [place], [facility]well [facility] [id number], [place], Ilya 120, [place] [id number] Umair, tel: , [place]. [place], tel: [phone]. [id number] tel:[phone] Rita Block Sep-2 Samson Referring In Womens 8-201 [facility]. 700 Provider: Agustin ALBERTO, 7 Medical [facility] PO Box [place] Concepcion Peters, Dr [facility] Gianni BoyleN[place], [facility], Medical [place], [facility]Corewell [facility] [id number], [place], [facility] 120, [place] [id number] Umair, tel: , [place]. [place], tel: [phone]. [phone] tel:[phone] Rita Block Mastitis w/out Mar-3 Sobbing In Womens abscess 0-201 [place]. Health DOLLY, 7 700 PO Box [facility] 1522, [place], [place], [address] [id number], 120, [place], tel: [place], [address], [place]. tel: [phone] Rita Block Pap Smear Ravinder-2 Samson In Womens Screening, Cervix 9-201 [facility]. 700 Health DOLLY, 7 Medical PO Box Center 1522, Ilya Erickson, [facility], [place], Umair, [id number], [place], [place] [id number] tel:+316 , [place]. tel: [phone] Rita Lawson-1 Krzysztof In Womens 0-201 Joyce. [employer] [place], 3 700 PO Box Medical 1522, [address] Orestes, [facility], 120, [id number], [place], [place], [phone] [address] , [place]. tel: [phone] Family History Family Member Diagnosis Age At [...] [place] - Medicaid [place] [id number] Standard [id number] [place] - Medicaid MC [id number] Social History Type Description Quantity Date Captured [...]
--- OUTSIDE RECORDS SUMMARY | 2018-03-29 22:41 | External Medical Summary | Continuity of Care Document ---
:1990 Author Organization [facility] [facility] Address [address] [place], [place] [phone] Phone Support Name Relationship Address Phone Juan Ceballos [address] [place] [address] Allergies, Adverse Reactions, Alerts Substance Reaction Severity [...] Reference Range Abnormal Flag Comments Panel Description: Glucose [Mass/volume] in Serum or Plasma --1 hour post 50 g glucose PO GLUCOSE, GESTATIONAL 10:03:00 129 mg/dL <140 N Test performed at [facility] ([facility] [id number] [place] [address]Nseoegbg: JASMYN BUSBY DO,MPH Panel Description: HEMOGLOBIN + HEMATOCRIT HEMOGLOBIN 10:03:00 12.1 g/dL 11.7-15.5 N HEMATOCRIT 10:03:00 36.5 % 35.0-45.0 N Test performed at [facility] [id number] [place] [address]Fzhnjpaq: JASMYN BUSBY DO,MPH Panel Description: HIV 1/2 ANTIGEN/ANTIBODY,FOURTH GENERATION W/RFL HIV May- NON-REACTIVE NON-REACTIVE N HIV-1 antigen and HIV-1/HIV- 2 antibodies were AG/AB, 10:03:00 notdetected. There is no laboratory evidence of 4TH GEN HIVinfection. PLEASE NOTE: This information has been disclosed toyou from records whose confidentiality may beprotected by state law. If your state requires suchprotection, then the state law prohibits you frommaking any further disclosure of the informationwithout the specific written consent of the personto whom it pertains, or as otherwise permitted by law.A general authorization for the release of medical orother information is NOT sufficient for this purpose. For additional information please refer tohttp://education.Xtellus/faq/GUQ086(This link is being provided for informational/educational purposes only.) The performance of this assay has not been clinicallyvalidated in patients less than 2 years old. REPORT COMMENT:FASTING:NOTest performed at [facility] [id number] [place] [address]Hfvqebcd: JASMYN BUSBY DO,MPH Advance Directives Directive Yes / No Effective Date File Name Unknown Encounters Encounter Practice Location Reason(s) Diagnoses Date Provider Care Team Description For Visit Members Rita Block Suprvsn of preg w Sep-2 Samson Referring In Womens history of 8-201 Momo. 700 Provider: [facility], pre-term labor, 7 [facility] Samson R, 1522, trimesterEncounte , [place] [address] O[place] for suprvsn of 120, Medical [place], normal , [facility] [id number], third [place], [facility] 120, [place] weeks gestation [id number] Umair, tel: of , [place]. [place], tel: [phone]. [id number] tel:[phone] [facility] Suprvsn of preg w Sep-2 Sobbing Referring In Womens history of 5-201 Bonilla. Provider: [facility], pre-term labor, [address] [place] [address] third trimester Medical Samson Ocasio, Beny2, Hunt [address], [address], [facility], [facility] Center [id number], 120, Ilya 120, [place] Umair Block, [place]: [place], [address], [id number]. [place]. tel: tel: [phone] [facility] Suprvsn of preg w Sep-1 Samson Referring In Womens history of 4-201 Momo. 700 Provider: Agustin ALBERTO, pre-term labor, 7 Medical Momo PO Box third Center Samson R, 1522, trimesterEncounte , Ilya [address] [place], r for suprvsn of 120, Medical [place], normal , [facility] [id number], third [id number] [place], Ilya 120, [place] weeks gestation [id number] Umair, tel: of , [place]. [place], tel: [phone]. [id number] tel:[phone] [facility] Suprvsn of preg w Sep-0 Samson Referring In Womens history of 8-201 Momo. 700 Provider: Agustin ALBERTO, pre-term labor, 7 Medical [facility] Box third trimester Center Samson R, 1522, , Ilya [address] [place], 120, Medical [place], [facility] [id number], [place], Ilya 120, [place] [id number] Umair, tel: , [place]. [place], tel: [phone]. [id number] tel:[phone] Rita Block Suprvsn of preg w Sep-0 Samson Referring In Womens history of 1-201 Momo. 700 Provider: Agustin ALBERTO, pre-term labor, 7 Medical [facility] Box [facility] Center Samson R, 1522, , Ilya [address] [place], 120, Medical GINNA, [facility] [id number], [place], Ilya 120, [place] [id number] Umair, tel: , [place]. [place], tel: [phone]. [id number] tel:[phone] Rita Block Suprvsn of preg w Aug-2 Samson Referring In Womens history of 4-201 Momo. 700 Provider: Agustin ALBERTO, pre-term labor, 7 Medical Momo PO Box [facility] Center Samson R, 1522, , Ilya [address] [place], 120, Medical [facility] [id number], [place], [facility] 120, [id number] Umair, tel: , . [place], tel: [phone]. [id number] tel:[phone] [facility] Suprvsn of preg w Aug-1 Samson Referring In Womens history of 6-201 Momo. 700 Provider: Agustin ALBERTO, pre-term labor, 7 [facility] Samson R, 1522, [facility] , [facility] 700 [place], suprvsn of normal 120, Medical [place], , second [facility] [id number], [id number] weeks [place], [facility] 120, gestation of [id number] Umair, tel: , [place]. [place], tel: [phone]. [id number] tel:[phone] Rita Block Suprvsn of preg w Apr- Samson Referring In Womens history of 0-201 Momo. 700 Provider: Agustin ALBERTO, pre-term labor, 7 [facility] Samson R, 1522, , Ilya Gianni [place], 120, [facility] Umair [facility] [id number], [place], [facility] 120, [place] [id number] Umair, tel: , . [place], tel: [phone]. [id number] tel:[phone] Rita Block Suprvsn of preg w Aug-0 Perales Referring In Womens history of 2-201 Kortney. Provider: Agustin ALBERTO, pre-term labor, [address] [place] [address] Samson R, 1522, Center [address], [facility], 120, Hunt [id number], Umair, [facility] 120, Umair CHACKO, tel:[phone] [place], , . [id number]. tel: tel: [phone] Rita Block Mastitis w/out Sobbing In Womens abscess 0-201 Bonilla. Agustin ALBERTO, 7 700 [facility] Medical 1522, [place], [place], [address] [id number], 120, [place], [place]: [place], [address], [place]. tel: [phone] [facility] Suprvsn of preg w Mar- Samson Referring In Womens history of 6- Momo. 700 Provider: Health [place], pre-term labor, 7 Medical Momo PO Box [facility] Samson R, 1522, Ilya Erickson [place], 120, Medical [place], [facility] [id number], RI, [facility] 120, [place] [id number] Block, tel: , [place]. [place], tel: [phone]. [id number] tel:[phone] [facility] Suprvsn of preg w Mar- Samson Referring In Womens history of - Momo. 700 Provider: Health [place], pre-term labor, 7 Medical Momo PO Box second Center Samson R, 1522, triSupervision of Ilya Erickson, other high risk 120, Medical [place], pregnancies, [facility] , second RI, [facility] 120, US [id number] weeks [id number] Umair, tel: gestation of , [place]. [place] tel: [phone]. [id number] tel:[phone] [facility] Suprvsn of preg w Samson In Womens Ultrasound history of - Momo. 700 Health [place], pre-term labor, 7 Medical PO Box second triSuprvsn Center 1522, of preg w Ilya Erickson, insufficient 120, [place], Umair quintana, [id number], second [place], triSupervision of [id number] tel: other high risk , [place]. pregnancies, tel: second [phone] weeks gestation of Associates U[facility]ir Suprvsn of preg w Feb- Samson In Womens history of 9- Momo. 700 Health PA, pre-term labor, 7 Medical PO Box second triSuprvsn Center 1522, of preg w Ilya Erickson, insufficient 120, [place], Umair quintana, [id number], second [place], triSupervision of [id number] tel: other high risk , [place]. pregnancies, tel: second [phone] trimesterPap Smear Screening, Eggjgy74 weeks gestation of Associates Block Krzysztof In Womens 0-201 Joyce. [facility], 3 700 PO Box Medical [address], [address] [place], I[place]a [place], 120, [id number], Block, [place], tel: [phone] , [place]. tel: [phone] Family History Family Member Diagnosis Age At Onset Mother Breast Cancer No Family history of Family history not known. Patient is adopted. Mother Epilepsy Mother Diabetes Father Lung Disease Mother Hypertension Mother Kidney Disease Mother Ovarian Cancer Mother Lung Disease Immunizations Vaccine Date Status Comments Unknown Payers Payer name Insurance type Covered republican ID Authorization(s) [employer] [place] - Medicaid [place] [id number] Standard [place] [id number] Social History Type Description Quantity Date Captured Alcohol Use Details No Caffeine Use Details Unknown Tobacco Use Status Smoking Status Former smoker Vital Signs Date / Height Weight BMI Pulse Blood Temperature Respiratory Body Head BMI Time: Rate Pressure Rate Surface Circumference percentile Area 241.20 40.1 134/83 2017 lbs 3 mm[Hg] 9:05 kg/m AM etanita (2) Chief Complaint And Reason For Visit Unknown Chief Complaint And Reason For Visit Reason For Referral Reason For Referral Unknown Plan Of Care Date Type Action Status Goal Tobacco cessation counseling completed Appointment Haritha Mcdonald BOOKED Appointment Haritha Mcdonald BOOKED Future Order: Radiology Order Complete OB Ultrasound > 14 Weeks Ordered ([id number]) Date Type Problem Goal Intervention Status Start [...]
--- OUTSIDE RECORDS SUMMARY | 2018-03-29 22:41 | External Medical Summary | Continuity of Care Document ---
:1990 Author Organization [facility] [employer] [facility] Address [address] [place], [place] [phone] Phone Support Name Relationship Address Phone Juan Ceballos [address] [place] [address] Allergies, Adverse Reactions, Alerts Substance Reaction Severity [...] Effective Dates (start - stop) Clinical Status Drug use complicating childbirth - Other mental disorders complicating - childbirth Single live - Mastitis w/out abscess - Pap Smear Screening, Cervix - Encounter For Screening For - Streptococcus B Asthma Active Migraines Active Active Procedures Procedure Date Routine obstetric care Results Test Name Date and Time Measure Units Reference Range Abnormal Flag Comments Unknown Advance Directives Directive Yes / No Effective Date File Name Unknown Encounters Encounter Practice Location Reason(s) Diagnoses Date Provider Care Team Description For Visit Members [facility] Drug use Samson In Women complicating 2-[address] [place] [address] PA, childbirthOther 7 Medical [address], mental disorders Center [place], [place], complicating DrIlya [id number], childbirthSingle 120, [place] live Umair, tel:[phone] [place], [address] [id number] , [place]. tel: [phone] Rita Block Encounter For Nov-0 Samson Referring In Womens 2-201 [place]. 700 Provider: Health [place], Screening For 7 Medical [place] [address], Streptococcus B Center [place], , [place] [id number], 120, Medical [facility] tel:21 [place], I[place]a 120, [address] [id number] [facility]. [place], tel: [phone]. [id number] tel:[phone] Rita Block Sep-2 Samson Referring In Womens 8-201 [place]. 700 Provider: Health PA, 7 [facility] [address], Center [place], Dr, [place] [id number], 120, [facility] tel: [place], [facility] 120, [address] [id number] [facility]. [place], tel: [phone]. [id number] tel:[phone] Rita Block Mastitis w/out Mar- Sobbing In Womens abscess 0-201 Bonilla. Health PA, 7 700 [address], [facility] [place], [place] [id number], Drive, Suite tel: 120, [address] [place], [address], . tel: [phone] Rita Block Pap Smear Ravinder-2 Samson In Womens Screening, Cervix 9-201 [place]. 700 Health PA, 7 Medical [address], [place] G[place]NA [place], , [facility] [id number], 120, [place], [place]: [place], [id number] , . tel: [phone] Rita Block Sep- Holdeman In Womens 0-201 Joyce. Health PA, 3 700 [address], [facility] [place], [place] [id number], Dr, [facility] 120, tel:+21 Umair, [address] [place], [id number] , . tel: [phone] Family History Family Member Diagnosis Age At [...] [employer] - Medicaid [place] [id number] Standard [id number] [place] - Medicaid [place] [id number] Social History Type Description Quantity Date Captured [...]
--- OUTSIDE RECORDS SUMMARY | 2018-03-29 22:41 | External Medical Summary | Continuity of Care Document ---
:1990 Author Organization [facility] [employer] [facility] Address [address] [place], [place] [phone] Phone Support Name Relationship Address Phone Juan Ceballos [address] [place] [address] Allergies, Adverse Reactions, Alerts Substance Reaction Severity [...] unsp 33 weeks gestation of - Encounter for suprvsn of normal - , third trimester 37 weeks gestation of - Encounter For Screening [...] For Visit Members Rita Block Encounter for Nov-0 Samson In Womens suprvsn of normal 9-201 Momo. 700 Health PA, , third 7 Medical PO Box [id number] weeks Center 1522, gestation of Ilya Erickson, 120, [place], Umair, [id number], [place], [id number] tel: , [place]. tel: [phone] Rita Block Encounter For Nov-0 Samson Referring In Womens 2-201 Momo. 700 Provider: Health DOLLY, Screening For 7 Medical Momo PO Box Streptococcus B36 Center Samson R, 1522, weeks gestation Ilya Erickson, of 120, Medical [place], [facility] [id number], [place], [facility] 120, [place] [id number] Umair, tel: , [place]. [place], tel: [phone]. [id number] tel:[phone] Rita Block Suprvsn of preg w Oct-2 Samson Referring In Womens history of 6-201 Momo. 700 Provider: Health DOLLY, pre-term labor, 7 Medical Momo PO Box third [id number] Center Samson R, 1522, weeks gestation Ilya Erickson, of 120, Medical [facility] [id number], [place], [facility] 120, [place] [id number] Umair, tel: , [place]. [place], tel: [phone]. [id number] tel:[phone] Rita Block Suprvsn of preg w Oct-2 Balbir Referring In Womens history of 0-201 Rufina. Provider: Health DOLLY, pre-term labor, 7 700 Momo PO Box third trimester Medical Samson R, 1522, [place] [address], [facility], 120, [place] [id number], Umair, [facility] 120, Umair CHACKO, tel: [phone] G[place], , [place]. [id number]. tel: tel: [phone] Rita Block Suprvsn of preg w Oct-1 Samson Referring In Womens history of 2-201 Momo. 700 Provider: Health DOLLY, pre-term labor, 7 Medical [facility] Box third Center Samson R, 1522, trimesterBernabe Erickson, Ilya 700 [place] for suprvsn of 120, Medical [place], normal , [facility] [id number], third [id number] [place], Ilya 120, [place] weeks gestation [id number] Block, tel: of , [place]. [place], tel:[phone]. [id number] tel:[phone] Rita Block Supervision of Oct-1 Samson In Womens Ultrasound other high risk 2-201 Momo. 700 Health [place], pregnancies, 7 Medical PO Box third Center 1522, trimesterMaternal , [facility] Orestes, care for oth 120, [place], abnormality Umair, [id number], and damage, [place], [place] unsp33 weeks [id number] tel: gestation of , [place]. tel: [phone] Rita Block Suprvsn of preg w Sep-2 Samson Referring In Womens history of 8-201 Momo. 700 Provider: Health DOLLY, pre-term labor, 7 Medical [facility] Box third [place] Samson R, 1522, trimesterBernabe Erickson, [facility] 700 [place]ilton [place] for suprvsn of 120, Medical [place], normal , [facility] [id number], third [id number] [place], Ilya 120, [place] weeks gestation [id number] Umair, tel: of , [place]. [place], tel:[phone]. [id number] tel:[phone] Rita Block Suprvsn of preg w Sep-2 Sobbing Referring In Womens history of 5-201 Bonilla. Provider: Health DOLLY, pre-term labor, 7 700 [facility] Box third trimester Medical Samson R, 1522, Center 700 Orestes, [facility], [facility], Suite Center [id number], 120, Ilya 120, [place] Umair Block, [place]: [place], [address], [id number]. [place]. tel: tel: [phone] Rita Block Suprvsn of preg w Sep-1 Samson Referring In Womens history of 4-201 Momo. 700 Provider: Agustin ALBERTO, pre-term labor, 7 Medical Momo PO Box third Center Samsno Ocasio, 1522, trimesterEncounte , Ilya 700 Orestes r for suprvsn of 120, Medical [place], normal , [facility] [id number], third [id number] [place], Ilya 120, [place] weeks gestation [id number] Umair, tel: of , [place]. [place], tel: [phone]. [id number] tel:[phone] Associates [facility]ir Suprvsn of preg w Sep-0 Samson Referring In Womens history of 8-201 Momo. 700 Provider: Agustin ALBERTO, pre-term labor, 7 Medical Momo PO Box third trimester Center Samson Ocasio, 1522, , Ilya 700 [place], 120, Medical [facility] [id number], [place], Ilya 120, [place] [id number] Umair, tel: , [place]. [place], tel: [phone]. [id number] tel:[phone] Rita Block Suprvsn of preg w Sep-0 Samson Referring In Womens history of 1-201 Momo. 700 Provider: Agustin ALBERTO, pre-term labor, 7 Medical Momo Box second [facility] Center Samson Ocasio, 1522, , Ilya 700 [place], 120, Medical [facility] [id number], [place], Ilya 120, [place] [id number] Umair, tel: , [place]. [place], tel: [phone]. [id number] tel:[phone] Rita Block Suprvsn of preg w Aug-2 Samson Referring In Womens history of 4-201 Momo. 700 Provider: Agustin ALBERTO, pre-term labor, 7 Medical Momo PO Box [facility] Samson Ocasio 1522, , Ilya 700 [place], 120, Medical [facility]ir [facility] [id number], [place], I[place]a 120, [place] [id number] Umair, tel: , . [place] tel: [phone]. [id number] tel:[phone] Rita Millsvsn of preg w Apr-1 Samson Referring In Womens history of 6-201 Momo. 700 Provider: Agustin ALBERTO, pre-term labor, 7 Medical [facility] Box [facility] Samson R, 1522, triEncounter for , [address], suprvsn of normal 120, Medical [place], , second [facility] [id number], [id number] weeks [place], [facility] 120, [place] gestation of [id number] Umair, tel: , [place]. [place], tel: [phone]. [id number] tel:[phone] Rita Block Suprvsn of preg w Apr-1 Samson Referring In Womens history of 0-201 Momo. 700 Provider: Agustin ALBERTO, pre-term labor, 7 Medical Momo PO Box [facility] Samson R, 1522, , [address], [facility], [facility], [facility] [id number], [place], [facility] 120, [place] [id number] Umair, tel: , [place]. [place], tel: [phone]. [id number] tel:[phone] Rita Block Suprvsn of preg w Aug-0 Perales Referring In Womens history of 2-201 Kortney. Provider: Agustin ALBERTO, pre-term labor, 7 700 [facility] Box [facility] Samson R, 1522, Center [facility] [address] Orestes, [facility], 120, [place] [id number], [place], [facility] 120, Umair CHACKO, tel:[phone] [facility] , [place]. [id number]. tel: tel: [phone] Rita Block Mastitis w/out Mar- Sobbing In Womens abscess 0-201 Bonilla. Agustin ALBERTO, 7 700 Box [facility] 1522, [place], [place], [facility] [id number], 120, [place] Umair, tel: [facility] [address], [place]. tel: [phone] Rita Block Suprvsn of preg w Mar-2 Samson Referring In Womens history of 6-201 Momo. 700 Provider: Agustin ALBERTO, pre-term labor, 7 Medical Momo PO Box second [facility] Center Samson R, 1522, Ilya Ericksonta, 120, Medical [place], [place], [place] [id number], [place], Ilya 120, [place] [id number] Umair, tel: , [place]. [place], tel: [phone]. [id number] tel:[phone] Associates Umair Suprvsn of preg w Samson Referring In Womens history of 9-201 Momo. 700 Provider: Health PA, pre-term labor, 7 Medical Momo PO Box second Center Samson R, 1522, triSupervision of Ilya Ericksonchita, other high risk 120, Medical [place], [facility], [facility] [id number], [facility], [facility] 120, [place] [id number] weeks [id number] Umair, tel:+ gestation of , [place]. [place], tel: [phone]. [id number] tel:[phone] Associates Umair Suprvsn of preg w Samson In Womens Ultrasound history of 9-201 Momo. 700 Health PA, pre-term labor, 7 Medical PO Box second triSuprvsn Center 1522, of preg w Ilya Erickson, insufficient 120, [place], Umair quintana, [id number], second [place], triSupervision of [id number] tel:+ other high risk , [place]. pregnancies, tel:+10-13 second [phone] [id number] weeks gestation of Associates Umair Suprvsn of preg w Ravinder-2 Samson In Womens history of 9-201 Momo. 700 Health PA, pre-term labor, 7 Medical PO Box second triSuprvsn Center 1522, of preg w Ilya Erickson, insufficient 120, [place], Umair quintana, [id number], second [place], triSupervision of [id number] tel:+ other high risk , [place]. pregnancies, tel:+10-13 second [phone] trimesterPap Smear Screening, [id number] weeks gestation of Associates Umair Sep- Krzysztof In Womens 0-201 Joyce. Health [place], 3 700 PO Box Medical [address], [address], [facility], 120, [id number], [facility] [place], tel:[phone] [id number] , [place]. tel:[phone] Family History Family Member Diagnosis Age At [...] [place] - Medicaid [place] [id number] Standard [id number] [place] - Medicaid [place] [id number] Social History Type Description Quantity Date Captured [...] Complete OB Ultrasound > 14 Weeks Ordered ([id number]) Future Order: Radiology Order Ultrasound OB Follow-up ([id number]) Ordered Date Type Problem Goal Intervention Status [...]
[2018-03-29] MEDS ORDERED: HYDROMORPHONE 2 MG/ML INJECTION IVP ONE (23:13)
[2018-03-29] MEDS ORDERED: NS 1,000 ML IV ONE (23:18)
--- NOTE | 2018-03-29 23:23 | Emergency Department Report ---
Skin/Abscess/FB HPI - General Chief complaint: Medical Emergency Stated complaint: Abs on right breast Time Seen by Provider: 03/29/18 22:25 Source: patient Mode of arrival: ambulatory Limitations: no limitations - History of Present Illness HPI narrative: Patient was seen last week, diagnosed with mastitis and a small 2 cm abscess, started on high-dose Keflex and was scheduled to see a surgeon for abscess drainage. As the lesion was improving, somehow the visit to the surgeon was never accomplished, but now the symptoms are significantly worsened. Patient has been having feelings of fever and chills at home, significantly worsened area of mastitis in a much larger palpable mass within the right breast. Patient called Dr. Davies, her LINE [employer] SUPERINTENDENT who saw her originally, and she was directed to the ER. - Related Data Home Medications Medication Instructions Recorded Confirmed Proair Hfa 2 puff INH PRN PRN 03/30/18 03/30/18 cephALEXin [Keflex] 1 tab PO QID 03/30/18 03/30/18 Allergies Allergy/AdvReac Type Severity Reaction Status Date / Time aspirin Allergy Severe Bleeding Verified 03/29/18 23:37 ibuprofen Allergy Severe Bleeding Verified 03/29/18 23:37 guaifenesin Allergy Intermediate swelling Verified 03/29/18 23:37 venom-honey bee Allergy Intermediate HIVES Verified 03/29/18 23:37 cat dander Allergy Mild Itching Verified 03/29/18 23:37 house dust mite Allergy Mild Itching Verified 03/29/18 23:37 grass pollen Allergy Hives Verified 03/29/18 23:37 latex Allergy Hives Verified 03/29/18 23:37 lactose AdvReac Intermediate Gastrointestinal Verified 03/29/18 23:37 Upset Review of Systems All systems: reviewed and negative except as stated PFSH Patient Stated Medical History Migraine Yes Seizures Yes: not currently on meds Other HEENT Yes: wears contacts Asthma Yes: Use inhalers PRN Chronic Obstructive Pulmonary No Disease (COPD) Pulmonary Edema Yes Gastroesophageal Reflux Yes Disease Ulcer Yes: A CHILD Hx Urinary Tract Infection Yes: hx Anemia Yes Chlamydia Yes: hx of Clostridium Difficile Yes Herpes No Human Immunodeficiency Virus ( No HIV) Bipolar Disorder Yes Eating Disorder Yes Schizophrenia Yes Substance Use Disorder Yes: HX of MJ use and speed 2011 Maternal Gestational Diabetes No Now No: 07/25/17 gave Uterine Prolapse Yes Other Reproductive Yes: 35wk 2010 36.6 2013 Clinic Medical History (Last Updated 03/30/18 @ 01:44 by Nixon Gomes MD) Asthma (Acute Medical) Bipolar disorder (Acute Medical) Lactose intolerance (Acute Medical) Migraines (Acute Medical) Urinary tract bacterial infections (Acute Medical) Surgical History: Tonsillectomy - Social History Smoking status: Former smoker second hand exposure: Yes Substance use type: former substance user Alcohol intake frequency: does not drink Does patient use chewing tobacco?: No Physical Exam - Limitations Limitations: no limitations - General General appearance: alert, in distress (secondary to pain) - Normal Exams: Head:: Normocephalic without trauma Eyes:: Pupils are PERRLA w/ EOMI, No scleral icterus, irritation, or foreign bodies noted ENMT:: No facial trauma, nasal exudates, pharyngeal erythema, or exudates are noted Neck:: Full range of motion, without adenopathy, JVD, bruits or thyromegaly Chest/Respirations:: Clear all palafox, with good airflow, and symmetry bilaterally Cardiovascular:: Regular rate and rhythm, without murmur or gallop, Pulses 2+ all extremities, capillary refill, <2 seconds all extremities Abdomen:: Bowel sounds positive, soft, non-tender, non-distended, no hepatosplenomegaly, masses or bruits noted Genitourinary:: Vulva without rashes, or lesions, no exudate or bleeding, noted externally Musculoskeletal:: No tenderness, or deformity noted, good range of motion, all extremities Neurological:: Patient is alert, and oriented, cranial nerves, motor/sensory/ cerebellar, exams w/o gross deficits, to observation Psychiatric:: Patient exhibits, appropriate attention, emotion and affect - Chest Chest inspection: Present: normal inspection, symmetric chest wall rise, tenderness (patient has a large area of erythema radiating from the areola outward, having approximately two thirds of the right breast. This area is heavily indurated, and has a large palpable dents very tender mass inside the breast tissue.) Course Vital Signs Pulse Rate 102 H 03/29/18 23:00 Respiratory Rate 20 03/29/18 23:00 Blood Pressure 149/79 H 03/29/18 23:00 Pulse Oximetry 97 03/29/18 23:00 Temperature 99.5 F 03/30/18 01:00 Pulse Rate 96 03/30/18 01:10 Respiratory Rate 18 07/18/18 01:34 Blood Pressure 126/87 03/30/18 01:00 Pulse Oximetry 96 03/30/18 01:34 Skin/Abscess/Foreign Body - [facility] Narrative Medical decision making narrative: Heart rate is mildly elevated, although the patient is not febrile currently. She is given Dilaudid 1 mg IV for pain, one Tran normal saline is initiated. CBC - elevated white blood cell count, no significant left shift CMP - normal Lactate -normal Vision is discussed with Dr. Gomes, will admit inpatient to surgery, consult surgical services in the morning, and start vancomycin and Rocephin IV tonight. CT chest with contrast - - Lab Data Result diagrams: 03/29/18 23:40 03/29/18 23:40 Lab Results 03/29/18 03/29/18 Range/Units 23:40 23:40 WBC 13.7 H (4.5-11.0) T/MM3 RBC 4.78 (4.00-5.20) M/MM3 Hgb 13.8 (12-16) GM/DL Hct 41.5 (36-46) % MCV 86.8 (80-100) UM3 MCH 28.9 (26-34) UUG MCHC 33.3 (31-37) GM/DL RDW Std Deviation 40.3 (36.9-50.2) FL Plt Count 343 (130-400) T/MM3 MPV 10.7 (9.4-12.4) UM3 Immature Gran % (Auto) 0.3 (0.0-0.5) % Neut % (Auto) 68.1 H (33-66) % Lymph % (Auto) 24.0 (23-45) % [place] % (Auto) 6.5 (0-9.0) % Eos % (Auto) 1.0 (0-4) % Baso % (Auto) 0.1 (0-2) % Neut # (Auto) 9.3 H (1.8-7.7) T/MM3 Lymph # (Auto) 3.3 (1-4.8) T/MM3 [place] # (Auto) 0.9 H (0-0.8) T/MM3 Eos # (Auto) 0.1 (0-0.5) T/MM3 Baso # (Auto) 0.0 (0-0.2) T/MM3 Abs Immat Gran (auto) 0.04 H (0.00-0.03) T/MM3 Turbidity < 20 (0-20) Sodium 143 (136-146) MEQ/L Potassium 3.6 (3.6-5) MEQ/L Chloride 106 (98-107) MEQ/L Carbon Dioxide 22 (22-30) MEQ/L Anion Gap 15 (5-15) meq/L BUN 8.0 (7-17) MG/DL Creatinine 0.7 (0.7-1.2) mg/dL GFR Calculation 102 BUN/Creatinine Ratio 11 (6-26) RATIO Glucose 83 (65-110) MG/DL Calculated Osmolality 272 (261-280) MOSM/KG Calcium 9.4 (8.4-10.2) MG/DL Total Bilirubin 0.70 (0.20-1.30) MG/DL Conjugated Bilirubin 0.00 (0.00-0.30) mg/dL Unconjugated Bilirubin 0.40 (0.00-1.1) mg/dL Icterus Index < 2 (0-7) AST 25 (14-36) U/L ALT 26 (1-35) U/L Alkaline Phosphatase 83 (38-126) U/L Total Protein 8.3 H (6.3-8.2) g/dL Albumin 4.8 (3.5-5.0) g/dL Globulin 3.5 (2.4-3.6) G/DL Albumin/Globulin Ratio 1.4 (1.1-2.2) RATIO Plasma Lactate 1.1 (0.6-2.2) MMOL/L Specimen Hemolysis 42 H (0-25) Disposition Clinical Impression: Mastitis Disposition: 02 To [facility] Acute Care Condition: Stable - Seen By: physician
[2018-03-29] MEDS: SALINE FLUSH 10ml SYRINGE IVF PRN (23:34)
[2018-03-29] MEDS ORDERED: IOHEXOL 300mg/ml 75ml INJECTION ONE (23:38)
[2018-03-29] MEDS ORDERED: SALINE FLUSH 10ml SYRINGE ONE (23:38)
[2018-03-29] MEDS ORDERED: CLINDAMYCIN PB 600 MG/50 ML BAG IV ONE (23:39)
[2018-03-29] MEDS ORDERED: NS FLUSH BAG 500ml IV PRN (23:42)
[2018-03-30] MEDS ORDERED: CEFTRIAXONE (ER USE ONLY) 1 GM in NS 100 ML IV ONE (00:12)
[2018-03-30 00:57] VITALS: BMI 38.0
[2018-03-30] MEDS ORDERED: HYDROCODONE/APAP 7.5 MG/325 MG TABLET PO PRN (01:01)
[2018-03-30] MEDS ORDERED: ACETAMINOPHEN 325 MG TABLET PO PRN (01:01)
[2018-03-30] MEDS ORDERED: ONDANSETRON 4 MG/2 ML INJECTION IVP PRN (01:01)
[2018-03-30] MEDS ORDERED: SENNA + DOCUSATE TABLET PO PRN (01:01)
[2018-03-30] MEDS: LR 1,000 ML IV SCH ×5 (01:18→22:04)
[2018-03-30] MEDS: MORPHINE SULFATE 2mg INJECTION IVP PRN ×3 (01:41→19:53)
--- NOTE | 2018-03-30 01:41 | History & Physical Report ---
History of Present Illness Date: 03/30/18 Chief complaint: R breast pain, swelling, fevers and chills HPI: yumiko is a pleasant 27-year-old female patient of nael bejarano, , who was seen in his office last week for some pain and swelling under her right axilla. she was felt to have a possible abscess there, she was begun on cephalexin and referred to general surgery. for one reason or another, that surgical consultation did not take place as hoped, and in the last 24 hours she has noticed increased pain and swelling and fevers and chills which were to her consistent with a prior episode of mastitis that she experienced and was hospitalized for at the time she was [address] bejarano and was referred to the er, where was confirmed that she has a right- sided mastoiditis with concern for abscess, although ct scan could not confirm a definitive fluid collection. she is admitted for further evaluation, and comanagement with general surgery. Review of Systems - Constitutional Constitutional: Present: chills, fever(s) - EENMT Eyes: Absent: blurry vision, change in vision - Cardiovascular Cardiovascular: Absent: chest pain, palpitations, syncope, dyspnea on exertion - Respiratory Respiratory: Absent: cough, dyspnea - Gastrointestinal Gastrointestinal: Absent: abdominal pain, change in bowel habits - Integumentary/Breasts Breasts: as per HPI, pain, skin changes, swelling - Neurological Neurological: Absent: confusion, convulsions ( she has a documented seizure disorder in the chart, she states that she has not had a seizure since she was a child), focal weakness Past Medical History Medical History: Medical History (Last Updated 03/30/18 @ 01:44 by Nixon Gomes MD) Asthma Bipolar disorder Lactose intolerance Migraines Urinary tract bacterial infections Surgical History: Tonsillectomy Family History: she states that her mother has ovarian and breast cancer she does not know her father's medical or family history she has a half-brother who is in excellent health Family History: As Above - Social History Smoking status: Former smoker (quit years ago, she was reminded not to resume) Substance use type: does not use Alcohol intake: never Alcohol intake frequency: does not drink Housing: other (lives in [place]) Medications Home Medications Medication Instructions Recorded Confirmed Type Proair Hfa 2 puff INH PRN PRN 03/30/18 03/30/18 History cephALEXin [Keflex] 1 tab PO QID 03/30/18 03/30/18 History Allergies Allergy/AdvReac Type Severity Reaction Status Date / Time aspirin Allergy Severe Bleeding Verified 03/29/18 23:37 ibuprofen Allergy Severe Bleeding Verified 03/29/18 23:37 guaifenesin Allergy Intermediate swelling Verified 03/29/18 23:37 venom-honey bee Allergy Intermediate HIVES Verified 03/29/18 23:37 cat dander Allergy Mild Itching Verified 03/29/18 23:37 house dust mite Allergy Mild Itching Verified 03/29/18 23:37 grass pollen Allergy Hives Verified 03/29/18 23:37 latex Allergy Hives Verified 03/29/18 23:37 lactose AdvReac Intermediate Gastrointestinal Verified 03/29/18 23:37 Upset Exam Vital Signs: Temperature 99.5 F 03/30/18 01:00 Pulse Rate 96 03/30/18 01:10 Respiratory Rate 18 03/30/18 01:34 Blood Pressure 126/87 03/30/18 01:00 Pulse Oximetry 96 03/30/18 01:34 Height/Weight/BMI: Height 5 ft 6 in Weight 106.8 kg Body Mass Index 38.0 - Constitutional Present: no acute distress, obese - Routine HEENT Exam Head: Present: normocephalic, atraumatic Eye: Present: EOMI, PERRL ENT: Present: mucous membranes moist - Routine Neck Exam Present: supple, full ROM. Absent: JVD - Routine Chest/Breast/Axilla Exam Breast: Present: tenderness, induration, swelling - Routine Respiratory Exam Present: CTA bilaterally. Absent: accessory muscle use - Routine Cardiovascular Exam Present: RRR, no murmur - Routine Abdominal Exam Present: soft, normoactive bowel sounds, non distended, non tender - Routine Extremities Exam Absent: cyanosis, clubbing, edema - Routine Back/Spine/Pelvis Exam Back/Spine: Present: full ROM - Routine Skin Exam Present: intact - Routine Neurological Exam Present: alert, oriented X3, CN II-XII intact - Routine Psychiatric Exam Present: normal affect, normal thought process - Additional findings Additional findings: examination performed using telemedicine equipment with the assistance of the bedside nurse Results - Labs CBC & Chem 7: 03/30/18 04:22 03/30/18 04:22 Microbiology Results: Microbiology 03/29/18 23:43 Peripheral/Iv Start Blood Culture - Preliminary Culture Initiated - Results Pending 03/29/18 23:41 Peripheral/Iv Start Blood Culture - Preliminary Culture Initiated - Results Pending Assessment and Plan Assessment and Plan: yumiko is admitted to the medical/surgical floor for continued iv antibiotics, vancomycin and rocephin which were begun in the emergency department. ultrasound of the right breast is ordered to further elucidate ct and physical examination findings suspicious for an abscess. appreciate general surgical consultation and comanagement. dvt prophylaxis, mechanical only at this time in case of potential surgery. the majority of her home medications are otherwise continued, will provide further symptomatic supportive and diagnostic cares as the current workup, or as changes in her clinical scenario indicate. the plan of care was discussed with the patient at the time of my evaluation and she expressed an understanding and desired to proceed. DVT Prophylaxis: SCD's Resuscitation Status: Full Code - Physician Narrative Physician: Mary Beth Christensen MD Narrative: Date: 03/30/18 Time: 1230 's note reviewed. Yumiko interviewed and examined. CC: Breast pain, fever HPI: Yumiko is a 27-year-old female who last delivered 8 months ago (and is not nursing) sent to the emergency room last night with increasing pain in her right breast with associated swelling, fever, chills with history of right mastoiditis 1 yr ago requiring hospitalization. She was seen by Dr. Bejarano approximately a week ago when she initially noted some swelling and pain under her right axilla; she was started on cephalexin due to concern of early mastitis and advised that if symptoms worsen she would require surgical consultation. Symptoms persisted and within the past 24 hours she has noticed increasing erythema over the right lateral breast extending onto the medial breast with increasing pain and development of a firm area under and below the nipple. She was referred to the emergency room for further evaluation and subsequently hospitalized on IV antibiotics. CT scan obtained in the ER demonstrated probable abscess with reactive lymphadenopathy and drainage was recommended. Breast ultrasound was also obtained revealing approximate 4 cm abscess. PH/SH/FH: agree with that recorded above by Dr. Gomes; please add childhood history of seizures and GERD. ROS: 10 point review ROS negative outside of symptoms noted in history of present illness/by Dr. Gomes EXAM: General-NAD, alert, fluent speech; 98.6, 98, 18, 94/59, 96% RA HEENT-PERRL, EOMI without nystagmus, conjunctiva clear, sclera anicteric, conjugate gaze, facial structures symmetric, oropharynx clear, neck supple and without adenopathy Lungs-respirations nonlabored, good airflow, breath sounds clear Cardiac-regular rhythm, S1-S2 Right breast-faint erythema over the entire lateral breast and approximate 3 cm above, below, and medial to the nipple; there is a firm and exquisitely tender area just below the nipple. No R-axillary adenopathy appreciated Abd-soft, nontender, without palpable mass; bowel sounds present Ext-without edema Skin-skin changes over right breast as noted above, otherwise no generalized rash or evidence of wounds Neuro-cranial nerves 3-12 intact, motor tone/power within normal limits, sensation intact 4 extremities Psych-calm, cooperative DATA: WBC 13.7-11.9; potassium 3.2 this morning, creatinine 0.6, lactic acid 1.1-0.6; remainder of chemistries unremarkable MRSA nasal swab negative, urine test negative CT chest reviewed by myself demonstrating indurated area with probable abscess under and medial to right nipple; no lung pathology appreciated nor abnormalities in the upper abdomen; radiology reports reactive adenopathy in the right axilla. Right breast sonogram with 4 x 3.5 x 3.1 irregular abscess in the right breast in the retro-areola region A/P: Mastitis, recurrent Breast abscess Hypokalemia Asthma, asymptomatic at present Bipolar affective disorder History of migraines GERD Dr. Morocho consulted and surgical drainage of breast abscess tentatively plan for early this afternoon. Broad-spectrum antibiotics initiated with vancomycin/ceftriaxone overnight. Gram -positive organism identified on aspirate of purulent fluid obtained by Dr. Morocho with bedside aspiration of abscess. Staph aureus likely organism; continue current antibiotics pending additional culture information. Midline catheter placed due to poor IV access/vancomycin. Replace potassium postoperatively. Full code; patient requests as her alternate decision-maker. Hospital Course Summary Disclaimer: The visit summary below is not to be considered part of the above Progress Note.
[2018-03-30] MEDS ORDERED: CEFTRIAXONE 1 G in NS 100 ML IV SCH (02:00)
[2018-03-30] MEDS ORDERED: DiphenhydrAMINE 50 MG/ML INJECTION IVP PRN ×2 (03:36→06:45)
--- NOTE | 2018-03-30 07:56 | CT Scan Report ---
Indication: right mastitis with abscess PROCEDURE: CT chest w con: Encounter: Initial Comparison: Breast ultrasound from the same date Technique: Axial CT images were performed through the chest after the administration of intravenous contrast. Coronal and sagittal two-dimensional reformats. Automated Exposure Control and Iterative Reconstruction dose reducing techniques were utilized. Contrast: Omnipaque 300 74 mL Findings: The lungs are clear. No pleural effusion or pneumothorax. The central airways are patent. There is significant skin thickening in the right breast with an area of subareolar induration measuring approximately 3 cm in diameter with inflammatory stranding. There are presumably reactive enlarged right axillary lymph nodes present measuring up to 1.2 cm in short axis dimension. Residual thymic tissue noted incidentally in the mediastinum. No mediastinal adenopathy. Heart size is normal. No pericardial effusion. The upper abdomen shows possible fatty infiltration of the liver but no acute findings. Bone windows are negative. Impression: Probable mastitis with abscess in the right breast with reactive lymphadenopathy. Breast surgical consultation is recommended. Drainage is recommended. Skin punch biopsy may be helpful to exclude the small possibility of an inflammatory breast cancer in this young patient. Please see the breast ultrasound report for further details. There is a preliminary report by [employer]. .
[2018-03-30] MEDS ORDERED: LIDOCAINE 1% (10mg/ml) 5ml PF SDV INFIL ONE (08:14)
--- NOTE | 2018-03-30 10:11 | Breast Ultrasound ---
#[id number] - US BREAST RT LIMITED ULTRASOUND OF RIGHT BREAST: 03/30/2018 CLINICAL: N64.4-Breast Pain. Comparison is made to exam dated: 03/22/2018 ultrasound - [facility] [place]. Color flow, real-time, and Doppler ultrasound of the right breast were performed. Hope scale images of the real-time examination were reviewed. There is a benign 4 cm x 3.5 cm x 3.1 cm irregular abscess in the right breast central to the nipple in the retroareolar region. This irregular abscess is hypoechoic. This abnormality is increased in size and correlates to the reported pain and with area of redness. Color flow imaging demonstrates that there is increased vascularity. IMPRESSION: BENIGN There is no sonographic evidence of malignancy. The 4 cm x 3.5 cm x 3.1 cm irregular abscess in the right breast is benign. Given the rapid increase in size, surgical drainage should be considered. Antibiotic therapy had already been modified by the time of this report. Continued follow-up is recommended. If this persists despite new antibiotics, skin punch biopsy could be performed to exclude the remote possibility of an inflammatory breast cancer. Follow-up with ACR/ACS guidelines. The patient was notified of the results. Dr. Timmy Hairston [facility]/:03/30/2018 09:37:54 Breakfast Hostess: Kriss GORMAN, [facility] [place] letter sent: Benign w/ Palp/Pain Cat 1-2 Ultrasound BI-RADS: 2 Benign MTDD
[2018-03-30] MEDS: SALINE FLUSH 10ml SYRINGE IVF PRN (12:09)
--- NOTE | 2018-03-30 13:08 | Anesthesia Preoperative Report ---
Anesthesia Preoperative Record - Date and Time Date: 03/30/18 Preoperative Diagnosis: mastitis with abscess NPO Since Date: 03/28/18 NPO Since Time: 00:00 Allergies/Adverse Reactions: Allergies Allergy/AdvReac Type Severity Reaction Status Date / Time aspirin Allergy Severe Bleeding Verified 03/29/18 23:37 ibuprofen Allergy Severe Bleeding Verified 03/29/18 23:37 guaifenesin Allergy Intermediate swelling Verified 03/29/18 23:37 venom-honey bee Allergy Intermediate HIVES Verified 03/29/18 23:37 cat dander Allergy Mild Itching Verified 03/29/18 23:37 house dust mite Allergy Mild Itching Verified 03/29/18 23:37 grass pollen Allergy Hives Verified 03/29/18 23:37 latex Allergy Hives Verified 03/29/18 23:37 lactose AdvReac Intermediate Gastrointestinal Verified 03/29/18 23:37 Upset - Vital Signs Vital Signs: Temperature 98.6 F 03/30/18 07:29 Pulse Rate 98 03/30/18 07:29 Respiratory Rate 18 03/30/18 08:55 Blood Pressure 94/59 03/30/18 07:29 Pulse Oximetry 96 03/30/18 07:29 Height and Weight: Height 1.68 m Weight 106.8 kg Body Mass Index 38.0 - Medications Inpatient Medications: Current Medications Acetaminophen (Tylenol) 325 - 650 mg PO Q5H PRN PRN Reason: Discomfort Hydrocodone Bitart/Acetaminophen (Elmer 7.5/325) 1 tab PO Q6H PRN PRN Reason: Pain Diphenhydramine HCl (Benadryl) 25 mg IVP Q4H PRN PRN Reason: Itching Lactated Ringer's (Lactated Ringers) 1,000 mls @ 100 mls/hr IV .Q10H [facility] Last Infusion: 03/30/18 12:30 Dose: 100 mls/hr Ceftriaxone Sodium 1 g/ Sodium (Chloride) 100 mls @ 200 mls/hr IV Q24H [facility] Vancomycin HCl 2,000 mg/ (Sodium Chloride) 500 mls @ 250 mls/hr IV Q8H [facility] Last Infusion: 03/30/18 12:30 Dose: Infused Potassium Chloride (Potassium Chloride Premix) 10 meq in 100 mls @ 100 mls/hr IV Q1H [facility] Stop: 03/30/18 16:59 Famotidine/Sodium Chloride (Pepcid Premix) 20 mg in 50 mls @ 100 mls/hr IV Q12H [facility] Morphine Sulfate (Morphine Sulf 2 Mg Inj) 1 - 2 mg IVP Q2H PRN PRN Reason: Pain Last Admin: 03/30/18 08:55 Dose: 2 mg Ondansetron HCl (Zofran) 4 mg IVP Q6H PRN PRN Reason: Nausea &/or vomiting Senna/Docusate Sodium (Senna Plus Tablet) 1 tab PO BID PRN PRN Reason: Constipation Sodium Chloride (Iv Flush) 10 - 80 ml IVF PRN PRN PRN Reason: Flushing Last Admin: 03/30/18 12:09 Dose: 10 ml Sodium Chloride (Normal Saline) 500 ml IV PRN PRN Last Admin: 03/29/18 23:47 Dose: 500 ml Home Medications: Home Medications Medication Instructions Recorded Confirmed Type Proair Hfa 2 puff INH PRN PRN 03/30/18 03/30/18 History cephALEXin [Keflex] 1 tab PO QID 03/30/18 03/30/18 History Is Patient on Beta Mariela?: No - Medical History Respiratory: Reports: Asthma (Use inhalers PRN), Pulmonary Edema DENIES: Chronic Obstructive Pulmonary Disease (COPD) Gastrointestional: Reports: Gastroesophageal Reflux Disease, Ulcer ( A CHILD) , Morbid Obesity Neuro/Musculoskeletal: Reports: Depression (and anxiety disorder), Seizures ( not currently on meds), Other (bipolar) Renal/Endocrine: Reports: Dialysis Other History: DENIES: Now (07/25/17 gave ) - Surgical History HEENT Surgeries: Reports: Tonsillectomy (2011), Other (adenoids) Cardiac Surgeries/Treatments: Reports: Angiogram DENIES: Pacemaker GI Surgery/Treatments: DENIES: Other Surgery/Treatment: REPORT: Dialysis Musculoskeletal Surgery/Tx: Reports: Other Reproductive Surgery/Treatment: DENIES: Section, Mastectomy Anesthesia Reactions: None Hx Family Anesthesia Reaction: No History of Motion Sickness: No - Social History Smoking Status: Former smoker (quit years ago, she was reminded not to resume) Hx Chewing Tobacco Use: No Second Hand Exposure: Yes Substance Use Type: does not use Alcohol Intake: never Alcohol Intake Frequency: does not drink - Pertinent Findings Laboratory: CBC and BMP 03/30/18 04:22 03/30/18 04:22 BMP 03/29/18 03/30/18 23:40 04:22 Sodium 143 142 Potassium 3.6 3.2 L Chloride 106 108 H Carbon Dioxide 22 22 BUN 8.0 7.0 Creatinine 0.7 0.6 L Glucose 83 86 Calcium 9.4 8.0 L D Liver Function 03/29/18 Range/Units 23:40 Total Bilirubin 0.70 (0.20-1.30) MG/DL AST 25 (14-36) U/L ALT 26 (1-35) U/L Alkaline Phosphatase 83 (38-126) U/L Albumin 4.8 (3.5-5.0) g/dL - Physical Exam Respiratory Exam: Present: lungs clear, bilateral breath sounds equal Cardiovascular Exam: Present: regular rate and rhythm - Airway Assessment Mallampati Score: II TMD: 3 Fingerbreadths Neck Extension: fair Overall Assessment: no airway concerns - ASA ASA Score: 2 - Plan Anesthesia: General Inhalation Gases Peripheral Nerve Block: Other (right PEC block) - Discussion Discussion: Discussed risks/options/alternatives of anesthesia and questions answered. Patient consents. Nursing pain assessment noted. Attestation Statement: Prior to the delivery of any anesthetic medication, I examined the patient, developed the plan, obtained the patient's consent and discussed the risk and benefits of the procedure with the patient/guardian. - Additional Information Seen by Anesthesia: Yes
--- NOTE | 2018-03-30 13:12 | Consultation ---
DATE OF CONSULTATION 03/30/2018. HISTORY OF PRESENT ILLNESS This patient is 27 years old. This patient had pain at the right breast last week. She saw Dr. Momo Davies regarding this. It was suspected the patient might have some mastitis. The patient was started on treatment with Keflex at that time. There was initially some improvement in the pain in response to the Keflex. The pain at the right breast became worse this week. The patient also developed redness at the right breast this week. The patient began having some fever and chills at home on 03/29/2018. She was developing firmness at the area of redness and tenderness at the right breast. The patient did call Dr. Davies on 03/29/2018 and report these new symptoms to him. Dr. Davies did direct the patient to come to [facility] emergency room. The patient did come to [facility] emergency room late on the evening of 03/29/2018. The patient had findings at examination of the right breast suspicious for mastitis. There was a large area of erythema at the right breast. There was induration at the right breast. White blood cell count at the time of evaluation at the emergency room was 13,700. The patient did have a CT scan of the chest performed at the time of emergency room evaluation. This CT scan of the chest has been interpreted by Dr. Timmy Hairston as showing probable mastitis with an abscess in the right breast. The patient also underwent breast ultrasound exam. The results of the breast ultrasound exam are unknown. The patient was admitted to [facility] from the emergency room. The patient was admitted to the hospitalist service. The patient has been started on intravenous vancomycin and Rocephin. There were plans at the time of admission to the hospital to get a General Surgery consultation to see if the patient needed drainage of an abscess. The patient has not been breast feeding recently. PHYSICAL EXAMINATION VITAL SIGNS: Temperature is 98.6 degrees Fahrenheit oral. Pulse is 98. Respiratory rate is 18. Blood pressure is 94/59. Oxygen saturation is 96% on room air. BREASTS: The patient does have a 19 cm x 11 cm area of erythema over the central portion of the right breast. There is tenderness at this area of erythema. There is induration and tenderness and fluctuance which is most prominent just medial to the right nipple and areola. This process seems to be centered just medial to the right nipple and areola. There is redness and induration and erythema at this area in addition to fluctuance and extreme tenderness. LABORATORY DATA White blood cell count was 13,700 at 2340 hours on 03/29/2018. Plasma lactate was 1.1 at 2340 hours on 03/29/2018. Plasma lactate was 0.6 this morning. IMAGING DATA The patient did have a CT scan of the chest on 03/29/2018. This shows findings consistent with probable mastitis with abscess at the right breast. The patient also had a breast ultrasound exam. Results of the breast ultrasound exam are unknown. IMPRESSION 1. Right mastitis with right breast abscess. TREATMENT I did aspirate the abscess at the right breast to confirm that there is an abscess at this area. Betadine prep was used. Xylocaine 1% without epinephrine was infiltrated into the skin at a location just medial to the right areola and nipple to provide local anesthesia at the level of the skin. This area was then reprepped with Betadine. Syringe and an 18-gauge needle were then used to aspirate this area and a large amount of pus was aspirated into the syringe from this area. The pus from the abscess was submitted to the laboratory for aerobic and anaerobic bacterial culture and sensitivity studies. A sterile dressing was applied over the aspiration site. PATIENT EDUCATION I did inform the patient of the nature of an operation for incision and drainage of the right breast abscess. Expected benefits of this procedure were discussed with the patient. Potential risks and complications were also discussed such as bleeding. Questions were solicited from the patient. All of her questions were answered. PLAN Incision and drainage of abscess at right breast today in the operating room at [facility]. DES
[2018-03-30] MEDS: FAMOTIDINE PB 20 MG/50 ML BAG IV SCH (13:33)
[2018-03-30] MEDS: POTASSIUM CHLORIDE PREMIX 10 MEQ/100 ML BAG IV SCH ×4 (14:22→22:04)
[2018-03-30] MEDS ORDERED: MIDAZOLAM 2mg/2ml INJECTION IVP ONE (16:38)
[2018-03-30] MEDS ORDERED: FentaNYL 100 MCG/2 ML INJECTION IVP ONE (16:41)
[2018-03-30] MEDS ORDERED: FentaNYL 250 MCG/5 ML INJECTION ONE (17:11)
[2018-03-30] MEDS ORDERED: PROPOFOL 500 MG/50 ML VIAL ONE (17:12)
[2018-03-30] MEDS ORDERED: DEXAMETHASONE 4 MG/ML INJECTION ONE (17:13)
[2018-03-30] MEDS ORDERED: ONDANSETRON 4 MG/2 ML INJECTION ONE (17:13)
[2018-03-30] MEDS ORDERED: DiphenhydrAMINE 50 MG/ML INJECTION ONE (17:19)
[2018-03-30] MEDS ORDERED: BUPIVACAINE 0.5% (5mg/ml) PF 30ml INJ SDV ID ONE (17:42)
--- NOTE | 2018-03-30 17:53 | General Surgery Procedure Note ---
Date of Procedure: 03/30/18 Surgeon: Rashawn Postoperative Diagnosis: Right mastitis with right breast abscess Procedure: I and D of right breast abscess Estimated Blood Loss: See Anesthesia Record.
--- NOTE | 2018-03-30 18:40 | Anesthesia Postoperative Note ---
- Date and Time Date: 03/30/18 Time: 18:40 - Status Patient Participated in Evaluation: Patient Participated in Person Vital Signs: Temperature 97.2 F 03/30/18 17:59 Pulse Rate 86 03/30/18 18:20 Respiratory Rate 12 03/30/18 18:20 Blood Pressure 114/57 03/30/18 18:20 Pulse Oximetry 99 03/30/18 18:20 Respiratory Function: Airway Patent, Regular Respirations Cardiovascular Function: Regular Pulse Mental Status: Alert and Oriented Pain Intensity: 0 Hydration: IV Infusing Complications During Recover: None Apparent - Follow-Up Instructions Instructions: Per Surgeon
[2018-03-31] MEDS: FAMOTIDINE PB 20 MG/50 ML BAG IV SCH (00:30)
[2018-03-31] MEDS ORDERED: CEFTRIAXONE 1 G in NS 100 ML IV SCH (02:00)
[2018-03-31] MEDS: LR 1,000 ML IV SCH ×2 (06:35→10:50)
--- NOTE | 2018-03-31 08:28 | Operative Note ---
DATE OF OPERATION 03/30/2018 PREOPERATIVE DIAGNOSIS Right mastitis with right breast abscess. POSTOPERATIVE DIAGNOSIS Right mastitis with right breast abscess. OPERATION Incision and drainage of right breast abscess. SURGEON Maximino Morocho MD ANESTHESIA TIVA with LMA ASA CLASS 2 FINDINGS This patient did have right mastitis with a right breast abscess. The patient had a 19 cm x 11 cm area of erythema centered at the middle of the right breast. The area of maximum redness and tenderness and fluctuance was on the medial side of the right nipple and areola. Aspiration of the right breast at this site earlier this morning resulted in aspiration of a large amount of pus from the abscess at this location. The patient was found to have an abscess at the right breast at the time of the operation today. The abscess was deep within the breast at a location just medial to the right areola. This was a deep breast abscess. There was a well-defined abscess cavity filled with pus at this location. Breast tissue all around the abscess cavity was indurated and firm. DESCRIPTION OF OPERATION The patient was placed in supine position on the operating table. The patient was premedicated with intravenous sedation medication administered by the nurse elevator operator service. The patient continued to receive intravenous sedation medication throughout the operation. This was TIVA with LMA that was being used. The right breast and surrounding area were prepped and draped in routine sterile fashion. Bupivacaine 0.5% without epinephrine was infiltrated into skin and underlying breast tissue in an area overlying the abscess in a location just medial to the areola at the right breast. Scalpel was used to make a vertically oriented curved circumareolar incision directly overlying the abscess. The incision was extended down through breast tissue down to the level of the abscess. The abscess cavity was entered. Pus was evacuated out of the abscess cavity. The abscess cavity was explored to be sure that no loculations of pus were left behind anywhere. All of the pus was evacuated out of the abscess cavity. Hemostasis was achieved at the incision and drainage site wound with coagulation of bleeding points with the monopolar electrosurgery device. One bleeding point was clamped with a hemostat and ligated with 3-0 Vicryl suture. Satisfactory hemostasis was achieved. The abscess cavity was then packed open with normal saline-soaked Kerlix gauze. Sterile dressings were applied over the incision and drainage site. The patient did continue to receive intravenous sedation medication throughout the operation as needed to maintain patient comfort. The patient did appear to tolerate the operation well. The patient was transferred from the operating room to the recovery room in satisfactory condition. DES
--- NOTE | 2018-03-31 09:29 | Wound Care Progress Note ---
Wound Management - Patient Status Premedicated Prior to Dressing Change: No - Wound Right Breast Wound Type: Surgical Incision (Opened surgical Abcess) Wound Present on Admission?: Yes Degree of Burn: Full Thickness Length: 3 Width: 1.5 Depth: 4 Wound Bed Appearance: Beefy Red Judith Wound Appearance: Spelter Tunneling: No Undermining: No Drainage Description: Sanguineous Drainage Amount: Moderate Drainage Odor: No Odor Dressing Status: Changed Number of Packing Pieces Placed?: 1 Primary Dressing: Foam Dressing (Hydra Fera Blue Classic spiral cut) Secondary Dressing: Mepilex Dressing Change Date: 03/31/18 Dressing Change Time: 08:00 Dressing Change Patient Tolerance: Tolerated Well (Discussed follow up care at the wound clinic.) Microbiology: Microbiology 03/30/18 08:38 Breast, Right Gram Stain - Final 03/30/18 08:38 Breast, Right Deep Wound Culture - Preliminary No Growth After 1 Day 03/29/18 23:43 Peripheral/Iv Start Blood Culture - Preliminary No Growth After 1 Day 03/29/18 23:41 Peripheral/Iv Start Blood Culture - Preliminary No Growth After 1 Day
[2018-03-31 12:18] VITALS: BP 123/66; PULSE 73; RESP 20; TEMP 97.7; O2SAT 97
--- NOTE | 2018-03-31 13:46 | Progress Note ---
DATE 03/31/2018 POSTOP DAY #1 HISTORY The patient is doing much better today. There is much less pain at the right breast. The patient was able to sleep well last night. The incision and drainage site wound at the right breast was packed with normal saline-soaked Kerlix at the time of the operation yesterday and these dressings were left in place overnight. PHYSICAL EXAMINATION VITAL SIGNS: Temperature is 98 degrees Fahrenheit oral. Pulse is 71. Respiratory rate is 16. Blood pressure is 123/74. Oxygen saturation is 97% on room air. BREASTS: The incision and drainage site wound at the right breast looks good. There is much, much less erythema at the breast today. There has been a tremendous decrease in the amount of erythema since before the operation. The normal saline-soaked gauze is removed from the incision and drainage site open wound at the right breast today. This wound is 3 cm long in a superior-to- inferior direction. The wound is 1.5 cm wide in a [id number] direction. The wound is 4 cm deep. The wound is clean. There is no necrotic material or any purulent material in the open wound at this time. IMPRESSION 1. Resolving right breast mastitis. 2. Doing well following incision and drainage of right breast abscess on 2017. TREATMENT I did have Kathryn Archer RN from the [facility], come and look at the wound with me this morning. Sabra did examine the open wound with me. Sabra placed some Hydrofera blue classic sprial foam cut dressing in this open wound. The patient will be instructed regarding dressing changes at home. PLAN 1. Continue antibiotic treatment for the right breast mastitis under the direction of Dr. Christensen at [facility]. 2. Await final culture and sensitivity reports on the pus aspirated from the right breast abscess yesterday. 3. Arrangements are being made for the patient to follow up at [facility] for dressing changes. The Hydrofera blue classic dressing in the right breast incision and drainage site wound will be changed every three days. We will instruct the patient on how to do this once each week by the patient in her home. The patient will come to [facility] one time each week for dressing change and reassessment of the wound by Dr. Morocho and [facility] nurses. DES
[2018-03-31] MEDS ORDERED: VANCOMYCIN 2,000 MG in NS 500 ML IV SCH (20:00)
[2018-03-31] MEDS ORDERED: FAMOTIDINE 20 MG TABLET PO SCH (21:00)
--- NOTE | 2018-03-31 23:02 | Discharge Summary ---
Discharge Information Date of admission: 03/30/18 00:14 Anticipated date of discharge: 03/31/18 Attending Physician: Mary Beth Christensen MD Primary care physician: [facility] Consults: Consulting Provider: Maximino Morocho Reason For Exam: Mastitis with possible abscess - Discharge Diagnosis (1) Mastitis Status: Acute (2) Breast abscess Status: Acute Mastitis, recurrent Breast abscess Hypokalemia Asthma, asymptomatic at present Bipolar affective disorder History of migraines GERD - Procedures Procedures: Incision and drainage of right breast abscess by Dr. Morocho on 03/30/18 - Laboratory Labs: On admission 03/29/18 white count was 13.7 and chemistries are unremarkable; lactic acid 1.1. On 03/30 potassium was 3.2. 03/31/18 04:58 03/31/18 04:58 - Microbiology Microbiology 03/30/18 08:38 Breast, Right Gram Stain - many neutrophils, gram-positive cocci 03/30/18 08:38 Breast, Right Deep Wound Culture - Preliminary No Growth After 1 Day 03/29/18 23:43 Peripheral/Iv Start Blood Culture - Preliminary No Growth After 1 Day 03/29/18 23:41 Peripheral/Iv Start Blood Culture - Preliminary No Growth After 1 Day History of Present Illness HPI: Haritha is a 27-year-old female who last delivered 8 months ago (and is not nursing) sent to the emergency room last night with increasing pain in her right breast with associated swelling, fever, chills with history of right mastoiditis 1 yr ago requiring hospitalization. She was seen by Dr. Davies approximately a week ago when she initially noted some swelling and pain under her right axilla; she was started on cephalexin due to concern of early mastitis and advised that if symptoms worsen she would require surgical consultation. Symptoms persisted and within the past 24 hours she has noticed increasing erythema over the right lateral breast extending onto the medial breast with increasing pain and development of a firm area under and below the nipple. She was referred to the emergency room for further evaluation and subsequently hospitalized on IV antibiotics. CT scan obtained in the ER demonstrated probable abscess with reactive lymphadenopathy and drainage was recommended. Breast ultrasound was also obtained revealing approximate 4 cm abscess. Objective Vital signs: Temperature 97.7 F 03/31/18 12:17 Pulse Rate 73 03/31/18 12:17 Respiratory Rate 20 03/31/18 12:17 Blood Pressure 123/66 03/31/18 12:17 Pulse Oximetry 97 03/31/18 12:17 NAD, alert Respirations nonlabored with good airflow, breath sounds clear Right breast without erythema; small dressing over site of incision-dressing clean and dry Height/Weight/BMI: Height 1.68 m Weight 107 kg Body Mass Index 38.0 Hospital Course This is a general summary of the patient's hospital course. For more details refer to the complete medical record. Hospital course: Haritha was admitted with suspicion of right breast abscess with cellulitis and mastitis early in the morning 03/30/18 after presenting to the emergency room the evening before. She was started on broad-spectrum antibiotics with vancomycin and ceftriaxone. She was seen in consultation by Dr. Morocho on the morning of the and abscess was confirmed by aspiration at the bedside with removal of purulent fluid. This was sent for culture demonstrating many neutrophils and gram-positive cocci although culture of the fluid remains negative at discharge possibly because the patient did been started on antibiotics prior to aspiration. Dr. Morocho subsequently to commands to the operating room later in the day for formal I&D. By the morning of the she was significantly improved with complete resolution of erythema and tenderness in the right breast. She reported being pain free and was in fact holding her child on her abdomen with the baby bouncing up and down against her chest wall. Patient reported no nausea and good oral intake. She was instructed in wound care and packing. She subsequently felt stable for discharge. She'll follow up with Dr. Morocho weekly in the wound care clinic. She was converted to oral cephalexin and advised to monitor the wound closely for any drainage or increasing surrounding erythema. Time spent with patient: discharge greater than 30 minutes Resuscitation Status: Full Code Discharge Plan - Discharge Disposition Discharge Date: 03/31/18 Disposition: 01 Discharged Home, Self-Care *Condition: Stable Reason For Visit (Visit label in EMR): mastitis with abscess - Discharge Medications *Discharge Medications: Continue Proair Hfa 2 puff INH PRN PRN PRN Reason: Shortness Of Air/Wheezing cephALEXin [Keflex] 1 tab PO QID #40 cap - Discharge Packet/Instructions *Diet: Regular *Activity: As tolerated *Pain Management/Treatment: Tylenol or ibuprofen as needed per package instructions *Wound Care: Pack wound every 3 days with Hydrofera Blue packing as instructed prior to discharge. Follow-up wound care clinic weekly for reassessment and wound check. Additional Instructions: Monitor wound for signs of recurrent redness, increased drainage, and pain. *Expected Signs/Symptoms: Minor discomfort due to recent abscess drainage *Notify Physician if: Increasing redness, fever, or increasing drainage from wound *During Business Hours Contact: Dr. Morocho or Dr. Davies *After Business Hours Contact: Call [facility] at [phone] and ask that the on-call physician be paged *Pending Lab/Results: Follow up w/Provider - Referrals/Follow Up *Referrals/Follow Up: Maximino Morocho MD [Physician] - 1 Week (At wound care clinic) - Patient Handouts Patient Handouts: Mastitis (GEN) - Dismissal Complete Discharge Instructions are:: Complete Physician Narrative - Narrative Attestation Narrative: Date: 03/31/18 Time: 4017
== END 2018-03-31 17:20 | disposition home or self-care (01) | DRG 601 ==
LOC: ED 22:23 → SUATTDRO 03-30 00:14 → SRG 03-30 00:14
PROVIDERS: ADMIT Internal Medicine; ATTEND Internal Medicine